=== PATIENT | female | born 1975 | race Caucasian/White ===

== ENCOUNTER 2019-02-27 17:37 | Emergency (ER) | payer SELFPAY ==
[2019-02-27 17:41] VITALS: BP 148/115; PULSE 133; RESP 18; TEMP 37.6; O2SAT 98; BMI 41.1
--- NOTE | 2019-02-27 18:11 | XR_ITS ---
WS: [id number] CHEST XRAY TECHNIQUE: Portable chest. CLINICAL INFORMATION: cough, fever COMPARISON: June 26, 2018 FINDINGS: Heart: Normal cardiac silhouette. Lungs: Lungs are clear. No consolidation or pleural effusion. Bones: Normal visualized bony structures. XR/XR chest 1V portable [id number] IMPRESSION: Normal chest
--- NOTE | 2019-02-27 18:12 | W.ED.FEVER ---
HPI - Fever General: Chief Complaint: Fever Stated Complaint: Fever Time Seen by Provider: 02/27/19 18:05 History of Present Illness: HPI Narrative: Patient comes in with a history of 4-day fever. Patient also reports some nausea, diarrhea, cough and sore throat. Patient appears mildly unwell. Patient appears in no acute distress. Patient has history of hypertension. Associated symptoms: Reports diarrhea and nausea Review of Systems General: Reports: 10 or more systems reviewed and unremarkable except in HPI and below Const: Reports: fever ENMT: Reports: throat pain Resp: Reports: non-productive cough GI: Reports: nausea and diarrhea PFSH ED PFSH: Statuses (acute, chronic, etc) shown below reflect problem list status as previously entered and may not be historically accurate Social History Smoking and tobacco status: current every day smoker Physical Exam Const: COMMON NORMALS: no apparent distress and oriented x3 GENERAL APPEARANCE: cooperative HENMT: COMMON NORMALS: normocephalic, external ears normal, EAC's normal, TM's normal bilaterally and external nose normal HEAD & SCALP: normal to inspection and normocephalic FACE & SINUS: normal facial exam NOSE: external nose normal GENERAL EAR: hearing not grossly impaired EXTERNAL EAR: Yes external ears normal EXTERNAL AUDITORY CANAL: EAC's normal TYMPANIC MEMBRANE: TM's normal bilaterally MOUTH: oral and palatal mucosa normal THROAT: posterior oropharynx normal Eye: COMMON NORMALS: PERRL and EOMs intact bilaterally PUPIL: Yes PERRL Neck/C-Spine: COMMON NORMALS: full ROM and no lymphadenopathy Lymph: LYMPHATIC: no lymphedema noted Chest: COMMONS NORMALS: inspection of chest normal and palpation of chest normal Resp: COMMON NORMALS: normal respiratory effort and clear to auscultation bilaterally AUSCULTATION: clear to auscultation bilaterally Cardio: COMMON NORMALS: regular rate and regular rhythm RATE: regular rate RHYTHM: regular rhythm GI: COMMON NORMALS: normal to inspection, nondistended, normoactive bowel sounds and non-tender : COMMON NORMALS: Yes no CVA tenderness BLADDER/KIDNEY EXAM: Yes no CVA tenderness Back/Pelvis: COMMON NORMALS: no CVA tenderness and thoracic and lumbar spine normal to inspection Extremity: COMMON NORMALS: normal to inspection GENERAL: No edema Neuro: COMMON NORMALS: oriented x3, moves all extremities and no focal motor deficits Psych: COMMON NORMALS: mental status grossly normal and cooperative Skin: COMMON NORMALS: no rashes or lesions noted GENERAL SKIN EXAM: no rashes or lesions noted Course Vital Signs: Vital signs: Vital Signs Temperature 100.2 F H 02/27/19 20:38 Pulse Rate 120 H 02/27/19 20:38 Respiratory Rate 18 02/27/19 20:38 Blood Pressure 131/109 02/27/19 20:38 Pulse Oximetry 95 02/27/19 20:38 MDM - Fever MDM Narrative: Medical decision making narrative: Patient comes in due to concerns for fever after 4 days of illness. Exam noted respirations were even lungs were clear to auscultation. Skin was warm and dry. Patient responded well to questioning. Vital signs were stable except for a mild fever, and increased heart rate. Differential diagnosis includes influenza, viral syndrome, dehydration, urinary tract infection, pneumonia. Laboratory values were significant for low potassium, mild increase in creatinine and mildly low sodium at 135. Patient was ordered medication for nausea Zofran, and given 1 L of IV fluids. While waiting for labs Davion Solomon, nurse practitioner, continue treatment. Patient was released with a diagnosis of hypokalemia and viral syndrome and was given potassium for further treatment. Lab Data: Labs: Lab Results 02/27/19 02/27/19 02/27/19 Range/Units 18:50 18:50 19:16 WBC 7.2 (4.0-10.0) 10^3/ uL RBC 5.17 (4.1-5.3) 10^6/u L Hgb 16.1 H (11.5-15.3) g/dL Hct 46.7 (37.0-47.0) % MCV 90.3 (81-99) fL MCH 31.1 (28.0-34.0) pg MCHC 34.5 (30.0-36.0) g/dL RDW 12.4 (12.1-15.1) % Plt Count 283 (130-400) 10^3/c mm MPV 10.2 (7.4-10.4) fL Neut % (Auto) 76.8 % Lymph % (Auto) 15.6 % Kent % (Auto) 7.2 % Eos % (Auto) 0.0 % Baso % (Auto) 0.3 % Neut # (Auto) 5.5 (1.8-7.7) 10^3/u L Lymph # (Auto) 1.1 (0.8-4.8) 10^3/u L Kent # (Auto) 0.5 (0.2-0.9) 10^3/u L Eos # (Auto) 0.0 (0.0-0.8) 10^3/u L Baso # (Auto) 0.0 (0.0-0.1) 10^3/u L Nucleated RBC % (a uto) 0 % Nucleated RBCs # 0.0 /100WBC Sodium (136-145) mmol/L Potassium (3.5-5.1) mmol/L Chloride (98-107) mmol/L Carbon Dioxide (22-29) mmol/L Anion Gap (5-19) BUN (6-20) mg/dL Creatinine (0.5-0.9) mg/dL GFR Calculation (90-130) mL/min Glucose (74-109) mg/dL Calcium (8.5-10.5) mg/dL Total Bilirubin (0.15-1.2) mg/dL AST (0-32) U/L ALT (0-33) U/L Alkaline Phosphata se (35-105) IU/L Total Protein (6.6-8.7) g/dL Albumin (3.5-5.2) g/dL Globulin (1.3-4.6) g/dL Influenza Type A A g Negative (Negative) POC Influenza B Ag Negative (Negative) Group A Strep Rapi d Negative (Negative) 02/27/19 Range/Units 19:16 WBC (4.0-10.0) 10^3/ uL RBC (4.1-5.3) 10^6/u L Hgb (11.5-15.3) g/dL Hct (37.0-47.0) % MCV (81-99) fL MCH (28.0-34.0) pg MCHC (30.0-36.0) g/dL RDW (12.1-15.1) % Plt Count (130-400) 10^3/c mm MPV (7.4-10.4) fL Neut % (Auto) % Lymph % (Auto) % Kent % (Auto) % Eos % (Auto) % Baso % (Auto) % Neut # (Auto) (1.8-7.7) 10^3/u L Lymph # (Auto) (0.8-4.8) 10^3/u L Kent # (Auto) (0.2-0.9) 10^3/u L Eos # (Auto) (0.0-0.8) 10^3/u L Baso # (Auto) (0.0-0.1) 10^3/u L Nucleated RBC % (a uto) % Nucleated RBCs # /100WBC Sodium 135 L (136-145) mmol/L Potassium 2.7 L* (3.5-5.1) mmol/L Chloride 94 L (98-107) mmol/L Carbon Dioxide 26 (22-29) mmol/L Anion Gap 17.7 (5-19) BUN 11 (6-20) mg/dL Creatinine 1.0 H (0.5-0.9) mg/dL GFR Calculation 60.8 L (90-130) mL/min Glucose 129 H (74-109) mg/dL Calcium 9.4 (8.5-10.5) mg/dL Total Bilirubin 0.2 (0.15-1.2) mg/dL AST 56 H (0-32) U/L ALT 57 H (0-33) U/L Alkaline Phosphata se 94 (35-105) IU/L Total Protein 7.9 (6.6-8.7) g/dL Albumin 4.8 (3.5-5.2) g/dL Globulin 3.1 (1.3-4.6) g/dL Influenza Type A A g (Negative) POC Influenza B Ag (Negative) Group A Strep Rapi d (Negative) Discharge Plan Discharge Patient Disposition: Home, Self-Care Clinical Impression: Viral infection, Hypokalemia Condition: Stable Prescriptions: New potassium chloride 10 mEq tablet extended release 10 meq PO DAILY Qty: 10 RF: 0 Discharge Orders: Discharge Order (Routine); Ordered 02/27/19 Ordered By: Jonathan Solomon Other Ambulatory Orders: Potassium (Routine) Timeframe: 10 Day Facility: [facility] - Location: Lab - Main Lab Ordered By: Jonathan Solomon Discharge Diet: Usual diet Discharge Activity: Increase activity as tolerated Patient Instructions: Hypokalemia (ED), Viral Syndrome (ED) Activity Restrictions/Additional Instructions: Follow-up with medical provider as directed. Medication as prescribed. return to the ER or your medical provider if condition worsens. Please read and understand discharge instructions. If any questions ask please. Drink plenty of fluids. Follow-up with family medicine provider to recheck potassium. Discharge Date/Time: 02/27/19 20:39 Coding Level of Care Code ED Retail Operations Manager for Jeremy Cherry Exam Problem Focused
[2019-02-27 19:16] LABS: Rapid Strep A Test Negative (Negative)
[2019-02-27 19:21] LABS: Basophils % 0.3 %; Hematocrit 46.7 % (37.0-47.0); Hemoglobin 16.1 g/dL (11.5-15.3); Lymphocytes # 1.1 10^3/uL (0.8-4.8); Lymphocytes % 15.6 %; Mean Corpuscular HGB Conc 34.5 g/dL (30.0-36.0); Mean Corpuscular Hemoglobin 31.1 pg (28.0-34.0); Mean Corpuscular Volume 90.3 fL (81-99); Mean Platelet Volume 10.2 fL (7.4-10.4); Monocytes # 0.5 10^3/uL (0.2-0.9); Monocytes % 7.2 %; Neutrophils # 5.5 10^3/uL (1.8-7.7); Neutrophils % 76.8 %; Nucleated Red Blood Cells % 0 %; Platelet Count 283 10^3/cmm (130-400); Red Blood Count 5.17 10^6/uL (4.1-5.3); Red Cell Distribution Width 12.4 % (12.1-15.1); White Blood Count 7.2 10^3/uL (4.0-10.0)
[2019-02-27 19:25] LABS: Influenza A by IFA Negative (Negative); Influenza B by IFA Negative (Negative)
[2019-02-27] MEDS: sodium chloride 0.9% 1,000 ML 999 ML IV (19:25)
[2019-02-27] MEDS: ondansetron 2 mg/ML SDV 2 mL 4 MG IVP (19:25)
[2019-02-27 19:42] LABS: Alanine Aminotransferase 57 U/L (0-33); Albumin Level 4.8 g/dL (3.5-5.2); Alkaline Phosphatase 94 IU/L (35-105); Anion Gap 17.7 (5-19); Aspartate Amino Transferase 56 U/L (0-32); Blood Urea Nitrogen 11 mg/dL (6-20); Calcium 9.4 mg/dL (8.5-10.5); Carbon Dioxide 26 mmol/L (22-29); Chloride 94 mmol/L (98-107); Globulin 3.1 g/dL (1.3-4.6); Glomerular Filtration Rate 60.8 mL/min (90-130); Glucose 129 mg/dL (74-109); Sodium 135 mmol/L (136-145); Total Bilirubin 0.2 mg/dL (0.15-1.2); Total Protein 7.9 g/dL (6.6-8.7)
[2019-02-27] MEDS: ketorolac 30 mg/mL INJ IVP (19:43)
[2019-02-27 19:55] LABS: Potassium 2.7 mmol/L (3.5-5.1)
--- NOTE | 2019-02-27 19:55 | PC.NURSE ---
Advised McVickers of potassium of 2.7
[2019-02-27 20:38] VITALS: BP 131/109; PULSE 120; RESP 18; TEMP 37.9; O2SAT 95
== END 2019-02-27 20:39 | disposition home or self-care (01) ==
PROVIDERS: Emergency Provider Nurse Practitioner Family
DX: B34.9 Viral infection, unspecified (principal); E87.6 Hypokalemia; F17.210 Nicotine dependence, cigarettes, uncomplicated
CPT/HCPCS: 71045; 80053; 85025; 87081; 87804; 87880; 96360; 96374; 99282; J1885; J2405; J7030

== ENCOUNTER 2019-03-01 08:29 | Emergency (ER) | payer SELFPAY ==
[2019-03-01] VITALS (7 sets, daily range): BP systolic 130–149; BP diastolic 80–97; PULSE 118–138; RESP 19–24; TEMP 39.4; O2SAT 94–95; BMI 41.1
--- NOTE | 2019-03-01 08:38 | ED_ITS ---
Entered by Wilfred Gilman, acting as scribe for Chad Lujan DO HPI - Fever General: Chief Complaint: Fever Stated Complaint: fever Time Seen by Provider: 03/01/19 08:41 History of Present Illness: HPI Narrative: 43 yo female presents with fever. Pt states that she has had this fever for 1 week, she was seen here 2 days ago for it. Pt states that she hasn't been able to get the fever to go away. Pt states that her fever has gotten up to 104. Pt states that she has had diarrhea several times. MD elicited complaint: fever and malaise Onset (ago): week(s) (1) Measured temperature: 104 F Associated symptoms: Reports chills and diarrhea; Deny abdominal pain, back/flank pain, chest pain, confusion, dysuria, extremity pain, headache(s), nasal congestion, nausea, night sweats or vomiting Review of Systems Const: Reports: fever, chills, body aches and malaise; Denies: fatigue or night sweats Eyes: Denies: change in vision or blurry vision ENMT: Denies: throat pain, oral sores/lesions, dental pain, nasal discharge or nasal congestion Card: Denies: chest pain, palpitations, irregular heart rhythm, edema, syncope, shortness of breath on exertion, shortness of breath when lying down or leg pain with exertion Resp: Reports: non-productive cough; Denies: shortness of breath, productive cough or wheezing GI: Reports: diarrhea; Denies: abdominal pain, nausea, vomiting, vomiting blood, coffee grounds in vomit, difficulty swallowing, heartburn/indigestion, constipation, cramping, blood in stool or black tarry stool : Denies: flank pain, painful urination, urinary frequency, urinary urgency, urinary incontinence or blood in urine Musc: Denies: neck pain, back pain, extremity pain, extremity swelling, joint pain or joint swelling Skin/Breast: Denies: rash, itching or redness Neuro: Denies: headache, numbness in extremities, weakness in extremities, changes in sensation, lack of coordination, difficulty walking, frequent falls, dizziness, vertigo or confusion Psych: Denies: anxiety, depression, loss of interest, visual hallucinations, auditory hallucinations, suicidal ideation or homicidal ideation Endo: Denies: excessive urination, excessive thirst, tired all the time or cold intolerance Luis Miguel/Lymph: Denies: easy bruising, easy bleeding, petechiae, enlarged lymph nodes or tender lymph nodes PFSH ED PFSH: Statuses (acute, chronic, etc) shown below reflect problem list status as previously entered and may not be historically accurate Medical History FHx: cholecystectomy (Acute) Surgical History H/O tubal ligation (Acute) History of appendectomy (Acute) Social History Smoking and tobacco status: current every day smoker Physical Exam Const: COMMON NORMALS: average body habitus, oriented x3 and alert GENERAL APPEARANCE: cooperative, comfortable, well kempt and well developed NUTRITIONAL APPEARANCE: obese ORIENTATION/CONSCIOUSNESS: Yes awake, Yes oriented to person and Yes oriented to place HENMT: COMMON NORMALS: normocephalic, head/scalp atraumatic, EAC's normal, TM's normal bilaterally, external nose normal, moist oral mucous membranes and oropharynx normal HEAD & SCALP: normocephalic and atraumatic NOSE: external nose normal EXTERNAL AUDITORY CANAL: EAC's normal TYMPANIC MEMBRANE: TM's normal bilaterally MOUTH: oral and palatal mucosa normal, lip normal and tongue normal THROAT: posterior oropharynx normal and tonsils normal Eye: COMMON NORMALS: PERRL, EOMs intact bilaterally, conjunctivae normal and no scleral icterus CONJUNCTIVA: Yes conjunctivae normal PUPIL: Yes PERRL Neck/C-Spine: COMMON NORMALS: full ROM, no lymphadenopathy, supple, no meningeal signs and thyroid normal THYROID: thyroid normal and asymmetrical Lymph: LYMPHATIC: no lymphadenopathy noted Resp: COMMON NORMALS: normal respiratory effort, no retractions and no use of accessory muscles AUSCULTATION: rhonchi lower bilaterally and wheezes throughout Cardio: COMMON NORMALS: regular rate and regular rhythm RATE: regular rate RHYTHM: regular rhythm HEART SOUNDS: no murmurs GI: COMMON NORMALS: normal to inspection, nondistended, normoactive bowel sounds, soft to palpation and no hepatosplenomegaly PALPATION: Yes soft and Yes no hepatosplenomegaly : COMMON NORMALS: Yes no CVA tenderness BLADDER/KIDNEY EXAM: Yes no CVA tenderness Back/Pelvis: COMMON NORMALS: no CVA tenderness LUMBAR SPINE/LOWER BACK: Yes normal to inspection Extremity: COMMON NORMALS: no clubbing, cyanosis or edema, no calf tenderness and no pedal edema Neuro: COMMON NORMALS: oriented x3 SENSORIUM/ORIENTATION: Yes alert, Yes oriented to person and Yes oriented to place MENINGEAL SIGNS: Yes no meningeal signs Psych: APPEARANCE: Yes well kempt Skin: COMMON NORMALS: no rashes or lesions noted and skin turgor normal GENERAL SKIN EXAM: no rashes or lesions noted and turgor normal Course ED course: Patient improved significantly with nebulizers. She is feeling some better is a little surprised her flu is negative her chest x-ray is unremarkable started on doxycycline gave her prednisone IV here and will discharge home with a prednisone taper continue to use albuterol aggressively scheduled 4 times a day and as needed return if has worsening problems follow-up early next week. Vital Signs: Vital signs: Vital Signs Temperature 103 F H 03/01/19 08:33 Pulse Rate 125 H 03/01/19 10:40 Respiratory Rate 19 H 03/01/19 10:40 Blood Pressure 130/80 03/01/19 10:40 Pulse Oximetry 95 03/01/19 10:40 MDM - Fever Lab Data: Labs: Lab Results 03/01/19 03/01/19 03/01/19 Range/Units 08:51 08:51 09:00 WBC 8.7 (4.0-10.0) 10^3/ uL RBC 5.21 (4.1-5.3) 10^6/u L Hgb 16.2 H (11.5-15.3) g/dL Hct 46.9 (37.0-47.0) % MCV 90.0 (81-99) fL MCH 31.1 (28.0-34.0) pg MCHC 34.5 (30.0-36.0) g/dL RDW 12.4 (12.1-15.1) % Plt Count 223 (130-400) 10^3/c mm MPV 10.6 H (7.4-10.4) fL Neut % (Auto) 80.1 % Lymph % (Auto) 13.7 % Graham % (Auto) 5.4 % Eos % (Auto) 0.0 % Baso % (Auto) 0.5 % Neut # (Auto) 7.0 (1.8-7.7) 10^3/u L Lymph # (Auto) 1.2 (0.8-4.8) 10^3/u L Graham # (Auto) 0.5 (0.2-0.9) 10^3/u L Eos # (Auto) 0.0 (0.0-0.8) 10^3/u L Baso # (Auto) 0.0 (0.0-0.1) 10^3/u L Nucleated RBC % (a uto) 0 % Nucleated RBCs # 0.0 /100WBC Sodium 135 L (136-145) mmol/L Potassium 3.0 L (3.5-5.1) mmol/L Chloride 95 L (98-107) mmol/L Carbon Dioxide 26 (22-29) mmol/L Anion Gap 17.0 (5-19) BUN 9 (6-20) mg/dL Creatinine 0.9 (0.5-0.9) mg/dL GFR Calculation 68.7 L (90-130) mL/min Glucose 140 H (74-109) mg/dL Calcium 9.5 (8.5-10.5) mg/dL Total Bilirubin 0.2 (0.15-1.2) mg/dL AST 50 H (0-32) U/L ALT 45 H (0-33) U/L Alkaline Phosphata se 94 (35-105) IU/L Total Protein 8.4 (6.6-8.7) g/dL Albumin 4.5 (3.5-5.2) g/dL Globulin 3.9 (1.3-4.6) g/dL Influenza Type A A g Negative (Negative) POC Influenza B Ag Negative (Negative) Discharge Plan Discharge Patient Disposition: Home, Self-Care Clinical Impression: Bronchitis Condition: Stable Prescriptions: New Medrol (Gonzalo) 4 mg tablets,dose pack See Rx Instructions .ROUTE .COMPLEX Qty: 21 RF: 0 doxycycline hyclate 100 mg capsule 100 mg PO BID 10 Days Qty: 20 RF: 0 albuterol sulfate 2.5 mg /3 mL (0.083 %) solution for nebulization 2.5 mg INHALATION Q4H PRN (Reason: shortness of breath or wheezing) Qty: 90 RF: 0 No Action potassium chloride 10 mEq tablet extended release 10 meq PO DAILY Qty: 10 RF: 0 Discharge Diet: Advance as tolerated Discharge Activity: Increase activity as tolerated Activity Restrictions/Additional Instructions: Follow-up with your primary care doctor in 2 to 3 days. Discharge Date/Time: 03/01/19 10:41 Coding Level of Care Code ED Child Welfare Worker for Chg Fwd Exam Problem Focused The documentation recorded by the Mukul hussein Kialy, accurately reflects the service I personally performed and the decisions made by [place] Curtis L, Mar 01, 2019 08:29
--- NOTE | 2019-03-01 08:41 | XRR_ITS ---
PROCEDURE INFORMATION: Exam: XR Chest, 1 View Exam date and time: 03/01/2019 8:44 AM Age: 43 years old Clinical indication: Patient HX: Cough/fever x1 wk, PT is a current smoker, PT denies surg HX, PT denies HX of CA. TECHNIQUE: Imaging protocol: XR of the chest Views: 1 view. COMPARISON: CR XR chest 1V portable [id number] 02/27/2019 6:21 PM FINDINGS: Lungs: Mild interstitial prominence, without acute airspace disease. Pleural space: No pleural effusion. Heart/Mediastinum: Normal configuration of the heart. Bones/joints: Mild degenerative change. XR/XR chest 1V portable [id number] IMPRESSION: Mild interstitial prominence, without acute airspace disease.
[2019-03-01] MEDS: sodium chloride 0.9% 1,000 ML 999 ML IV (08:55)
[2019-03-01 08:56] LABS: Basophils % 0.5 %; Hematocrit 46.9 % (37.0-47.0); Hemoglobin 16.2 g/dL (11.5-15.3); Lymphocytes # 1.2 10^3/uL (0.8-4.8); Lymphocytes % 13.7 %; Mean Corpuscular HGB Conc 34.5 g/dL (30.0-36.0); Mean Corpuscular Hemoglobin 31.1 pg (28.0-34.0); Mean Platelet Volume 10.6 fL (7.4-10.4); Monocytes # 0.5 10^3/uL (0.2-0.9); Monocytes % 5.4 %; Neutrophils % 80.1 %; Nucleated Red Blood Cells % 0 %; Platelet Count 223 10^3/cmm (130-400); Red Blood Count 5.21 10^6/uL (4.1-5.3); Red Cell Distribution Width 12.4 % (12.1-15.1); White Blood Count 8.7 10^3/uL (4.0-10.0)
[2019-03-01 09:14] LABS: Alanine Aminotransferase 45 U/L (0-33); Albumin Level 4.5 g/dL (3.5-5.2); Alkaline Phosphatase 94 IU/L (35-105); Aspartate Amino Transferase 50 U/L (0-32); Blood Urea Nitrogen 9 mg/dL (6-20); Calcium 9.5 mg/dL (8.5-10.5); Carbon Dioxide 26 mmol/L (22-29); Chloride 95 mmol/L (98-107); Creatinine Clr Calc Pharmacy 98.1665; Globulin 3.9 g/dL (1.3-4.6); Glomerular Filtration Rate 68.7 mL/min (90-130); Glucose 140 mg/dL (74-109); Sodium 135 mmol/L (136-145); Total Bilirubin 0.2 mg/dL (0.15-1.2); Total Protein 8.4 g/dL (6.6-8.7)
[2019-03-01] MEDS: potassium chloride oral liq 20 mEq/15 mL UDC 40 MEQ PO (09:20)
[2019-03-01] MEDS: sodium chlor 0.9% + KCl 20 mEq 20 MEQ/1,000 ML BAG 125 MEQ IV (09:23)
[2019-03-01] MEDS: ipratropium-albuterol 3 mL Neb INHALATION ×2 (09:31→09:46)
[2019-03-01 09:40] LABS: Influenza A by IFA Negative (Negative); Influenza B by IFA Negative (Negative)
== END 2019-03-01 10:41 | disposition home or self-care (01) ==
PROVIDERS: Emergency Provider Family Medicine
DX: J40 Bronchitis, not specified as acute or chronic (principal); F17.210 Nicotine dependence, cigarettes, uncomplicated
CPT/HCPCS: 71045; 80053; 85025; 87804; 94640; 96360; 96374; 99282; J2930; J7030

== ENCOUNTER 2019-06-14 08:49 | Emergency (ER) | payer SELFPAY ==
[2019-06-14] VITALS (7 sets, daily range): BP systolic 132–155; BP diastolic 84–108; PULSE 78–94; RESP 16–20; TEMP 36.6; O2SAT 95–100; BMI 41.1
--- NOTE | 2019-06-14 09:08 | W.ED.SOB ---
HPI - SOB/Dyspnea General: Chief Complaint: Shortness of Breath/Dyspnea Stated Complaint: SOB Time Seen by Provider: 06/14/19 09:08 History of Present Illness: HPI Narrative: Patient is a 43-year-old female who comes ED with shortness of breath and chest pain. Patient says she had shortness of breath and wheezing that started 2 days ago. Today patient is having shortness of breath and chest pain that is worse upon exertion. Chest pain started yesterday. She describes the chest pain as sharp and occurs whether she is active or not. She does say when she is up and active the chest pain gets worse. She does not have any chest pain currently in the ED. She says over the past couple weeks she has noticed during exertion she will start sweating profusely. She also had an episode of left jaw pain that started yesterday, but has since resolved. She describes having a nonproductive cough. She is a tobacco smoker and just quit smoking 2 days ago. Associated symptoms: Reports chest pain; Deny abdominal pain, fever(s), nausea, orthopnea, palpitations or vomiting Review of Systems Const: Denies: fever, chills or fatigue Eyes: Denies: change in vision or eye discomfort ENMT: Denies: throat pain, painful swallowing, nasal discharge or nasal congestion Card: Reports: chest pain and shortness of breath on exertion; Denies: palpitations, edema, swelling of feet/ankles or shortness of breath when lying down Resp: Reports: shortness of breath and non-productive cough; Denies: productive cough GI: Denies: abdominal pain, nausea, vomiting, diarrhea, constipation or blood in stool : Denies: flank pain, painful urination or blood in urine Musc: Denies: neck pain, back pain or extremity swelling Skin/Breast: Denies: rash or new lesion Neuro: Denies: headache, numbness in extremities or weakness in extremities PFS ED PFSH: Medical History FHx: cholecystectomy Surgical History H/O tubal ligation History of appendectomy Social History Smoking and tobacco status: former smoker Physical Exam Const: COMMON NORMALS: oriented x3 and alert GENERAL APPEARANCE: cooperative NUTRITIONAL APPEARANCE: overweight HENMT: COMMON NORMALS: normocephalic HEAD & SCALP: normocephalic MOUTH: oral and palatal mucosa normal THROAT: posterior oropharynx normal and uvula midline Eye: COMMON NORMALS: PERRL and conjunctivae normal CONJUNCTIVA: Yes conjunctivae normal PUPIL: Yes PERRL Neck/C-Spine: COMMON NORMALS: supple GENERAL: Yes normal visual inspection Resp: COMMON NORMALS: normal respiratory effort, no retractions and no use of accessory muscles EFFORT & INSPECTION: Yes able to speak in complete sentences and Yes tachypneic (20 breaths per minute) AUSCULTATION: wheezes (Expiratory wheezing throughout right and left lung.) expiratory wheezes and throughout Cardio: COMMON NORMALS: regular rate, regular rhythm, S1 normal heart sound, S2 normal heart sound, no gallops, no clicks, no murmurs and peripheral pulses 2+ throughout RATE: regular rate RHYTHM: regular rhythm HEART SOUNDS: S1 normal and S2 normal PERIPHERAL PULSES: pulses 2+ throughout GI: COMMON NORMALS: normal to inspection, nondistended, normoactive bowel sounds, soft to palpation, non-tender and no masses PALPATION: Yes soft : COMMON NORMALS: Yes no CVA tenderness BLADDER/KIDNEY EXAM: Yes no CVA tenderness Back/Pelvis: COMMON NORMALS: no CVA tenderness Extremity: COMMON NORMALS: normal to inspection and no pedal edema Neuro: COMMON NORMALS: oriented x3 and moves all extremities SENSORIUM/ORIENTATION: Yes alert Skin: COMMON NORMALS: no rashes or lesions noted GENERAL SKIN EXAM: no rashes or lesions noted and dry skin Course ED course: HEART Score- 3-- Low Score Risk of MACE 0.9-1.7% Reevaluation(s): Reevaluation #1: Patient received 2 DuoNeb breathing treatments while here in the ED. After breathing treatments patient's wheezing greatly improved upon auscultation. Patient states she feels a lot better and does not feel short of breath currently. Time: 11:30 Vital Signs: Vital signs: Vital Signs Temperature 97.9 F 06/14/19 08:56 Pulse Rate 85 06/14/19 12:23 Respiratory Rate 16 06/14/19 12:23 Blood Pressure 132/84 06/14/19 12:23 Pulse Oximetry 95 06/14/19 12:23 MDM - SOB/Dyspnea MDM Narrative: Medical decision making narrative: Patient is a 43-year-old female who comes to the ED with shortness of breath and chest pain. Physical exam was remarkable for extensive wheezing throughout both right and left lungs. CBC, CMP and urinalysis were all normal and unremarkable. EKG showed normal sinus rhythm and troponin was negative. Influenza negative. Chest x-ray showed no acute findings. Patient was given DuoNeb treatment and reevaluated. Patient felt a lot better after DuoNeb treatments and her lungs sounded clear to auscultation bilaterally with no wheezing. Patient was diagnosed with reactive airway disease with wheezing. Patient has albuterol nebulizer at home. I put in an order for case management to find patient a PCP. Patient will follow-up with PCP next 7 to 10 days. I told her to use her albuterol nebulizer as needed for any wheezing or shortness of breath. Patient understood and agreed with plan. Lab Data: Attestation: I reviewed the patient's lab results. Labs: Lab Results 06/14/19 06/14/19 06/14/19 Range/Units 09:33 10:19 10:44 WBC 9.2 (4.0-10.0) 10^3/ uL RBC 4.43 (4.1-5.3) 10^6/u L Hgb 13.9 (11.5-15.3) g/dL Hct 45.3 (37.0-47.0) % MCV 102.3 H (81-99) fL MCH 31.4 (28.0-34.0) pg MCHC 30.7 (30.0-36.0) g/dL RDW 12.5 (12.1-15.1) % Plt Count 286 (130-400) 10^3/c mm MPV 10.5 H (7.4-10.4) fL Neut % (Auto) 67.3 % Lymph % (Auto) 22.2 % Cameron % (Auto) 5.2 % Eos % (Auto) 4.4 % Baso % (Auto) 0.7 % Neut # (Auto) 6.2 (1.8-7.7) 10^3/u L Lymph # (Auto) 2.0 (0.8-4.8) 10^3/u L Cameron # (Auto) 0.5 (0.2-0.9) 10^3/u L Eos # (Auto) 0.4 (0.0-0.8) 10^3/u L Baso # (Auto) 0.1 (0.0-0.1) 10^3/u L Nucleated RBC % (a uto) 0 % Nucleated RBCs # 0.0 /100WBC Sodium (136-145) mmol/L Potassium (3.5-5.1) mmol/L Chloride (98-107) mmol/L Carbon Dioxide (22-29) mmol/L Anion Gap (5-19) BUN (6-20) mg/dL Creatinine (0.5-0.9) mg/dL GFR Calculation (90-130) mL/min Glucose (65-115) mg/dL Calculated Osmolal ity (285-295) mOsm/k g Calcium (8.5-10.5) mg/dL Magnesium (1.7-2.3) mg/dL Total Bilirubin (0.15-1.2) mg/dL AST (0-32) U/L ALT (0-33) U/L Alkaline Phosphata se (35-105) IU/L Troponin T Baselin e (0-10) ng/mL Total Protein (6.6-8.7) g/dL Albumin (3.5-5.2) g/dL Globulin (1.3-4.6) g/dL TSH (0.27-4.20) uIU/ mL HCG, Qual (Negative) Urine Color Yellow (Yellow) Urine Appearance Sl cloudy A (CLEAR) Urine pH 9 H (5-7) Ur Specific Gravit y 1.015 (1.005-1.030) Urine Protein Neg (Negative) Urine Glucose (UA) Norm (Normal) Urine Ketones Negative (Negative) Urine Blood Neg (Negative) Urine Nitrate Negative (Negative) Urine Bilirubin Neg (NEGATIVE) Prot Sulfosalicyli c Acd Negative (Negative) Urine Urobilinogen Norm (Negative) mg/dL Ur Leukocyte Renetta ase Negative (Negative) Urine RBC None (0-2) /hpf Urine WBC 0-4 H (0-5) /hpf Ur Squamous Epith Cells 40-55 H (0-5) Urine Bacteria 2+ H (NONE) Urine Mucus 1+ Influenza Type A A g Negative (Negative) Influenza Type B A g Negative (Negative) 06/14/19 06/14/19 06/14/19 Range/Units 10:44 10:44 10:44 WBC (4.0-10.0) 10^3/ uL RBC (4.1-5.3) 10^6/u L Hgb (11.5-15.3) g/dL Hct (37.0-47.0) % MCV (81-99) fL MCH (28.0-34.0) pg MCHC (30.0-36.0) g/dL RDW (12.1-15.1) % Plt Count (130-400) 10^3/c mm MPV (7.4-10.4) fL Neut % (Auto) % Lymph % (Auto) % Cameron % (Auto) % Eos % (Auto) % Baso % (Auto) % Neut # (Auto) (1.8-7.7) 10^3/u L Lymph # (Auto) (0.8-4.8) 10^3/u L Cameron # (Auto) (0.2-0.9) 10^3/u L Eos # (Auto) (0.0-0.8) 10^3/u L Baso # (Auto) (0.0-0.1) 10^3/u L Nucleated RBC % (a uto) % Nucleated RBCs # /100WBC Sodium 139 (136-145) mmol/L Potassium 3.6 (3.5-5.1) mmol/L Chloride 102 (98-107) mmol/L Carbon Dioxide 26 (22-29) mmol/L Anion Gap 14.6 (5-19) BUN 8 (6-20) mg/dL Creatinine 0.6 (0.5-0.9) mg/dL GFR Calculation 109.6 (90-130) mL/min Glucose 120 H (65-115) mg/dL Calculated Osmolal ity 285 (285-295) mOsm/k g Calcium 9.0 (8.5-10.5) mg/dL Magnesium 2.0 (1.7-2.3) mg/dL Total Bilirubin 0.2 (0.15-1.2) mg/dL AST 31 (0-32) U/L ALT 43 H (0-33) U/L Alkaline Phosphata se 83 (35-105) IU/L Troponin T Baselin e 6 (0-10) ng/mL Total Protein 6.7 (6.6-8.7) g/dL Albumin 4.2 (3.5-5.2) g/dL Globulin 2.5 (1.3-4.6) g/dL TSH 0.72 (0.27-4.20) uIU/ mL HCG, Qual Negative (Negative) Urine Color (Yellow) Urine Appearance (CLEAR) Urine pH (5-7) Ur Specific Gravit y (1.005-1.030) Urine Protein (Negative) Urine Glucose (UA) (Normal) Urine Ketones (Negative) Urine Blood (Negative) Urine Nitrate (Negative) Urine Bilirubin (NEGATIVE) Prot Sulfosalicyli c Acd (Negative) Urine Urobilinogen (Negative) mg/dL Ur Leukocyte Renetta ase (Negative) Urine RBC (0-2) /hpf Urine WBC (0-5) /hpf Ur Squamous Epith Cells (0-5) Urine Bacteria (NONE) Urine Mucus Influenza Type A A g (Negative) Influenza Type B A g (Negative) Imaging Data^: CXR: Attestation: I personally reviewed and interpreted this imaging study as follows: Radiologist's impression: [place] [address] XRay Report Signed Patient: Anita Farmer Unit #: [id number] : 1975 Age/Sex: 43 / F ADM Date: 06/14/19 Loc: ER Room/Bed: Attending Dr: Ordering Provider/Ordering MD: Pasquale Wells Date of Service: 06/14/19 Procedure(s): XR chest 1V portable [id number] Accession Number(s): [id number] Report Number: [id number] WS: [id number] XR chest 1V portable [id number] REASON FOR EXAM: cp and sob FINDINGS: The heart and mediastinal interfaces were normal. The lung elizabeth are well aerated. No pneumonia, pleural effusion, pulmonary edema, no mass effect. No interval change since previous exam of March 01, 2019. The hilum and apices are normal. No osseous abnormalities. XR/XR chest 1V portable [id number] IMPRESSION: Negative chest for active pathology. Dictated By: Matt Yusuf DO Signed By: Matt Yusuf DO Signed Date/Time: 06/14/19936 DD/ 5 EKG Data^: EKG 1: Attestation: I personally reviewed and interpreted this EKG as follows: EKG Interpretation Date: 06/14/19 Interpretation: Sinus rhythm, approximately 90 bpm, P waves present, no ST segment elevation or depression seen. EKG 2: Attestation: I personally reviewed and interpreted this EKG as follows: EKG Interpretation Date: 06/14/19 Interpretation: Sinus rhythm, 71 bpm, P waves present, no ST segment elevation or depression seen. Discharge Plan Discharge Patient Disposition: Home, Self-Care Clinical Impression: Diffuse wheezing Reactive airway disease with wheezing Qualifiers: Asthma severity: mild Asthma persistence: intermittent Asthma complication type: uncomplicated Qualified Code(s): J45.20 - Mild intermittent asthma, uncomplicated Condition: Stable Prescriptions: No Action aspirin 325 mg Tablet 325 mg PO PRN PRN (Reason: Pain) RF: 0 albuterol sulfate 2.5 mg /3 mL (0.083 %) solution for nebulization 2.5 mg INHALATION Q4H PRN (Reason: shortness of breath or wheezing) Qty: 90 RF: 0 Discharge Orders: Discharge Order (Routine); Ordered 06/14/19 Ordered By: Pasquale Wells Discharge Diet: Regular Discharge Activity: Increase activity as tolerated Patient Instructions: Reactive Airways Disease (ED) Activity Restrictions/Additional Instructions: PCP or case management should be contacting you about setting up an appointment with your primary care physician sometime next week. Use your previously prescribed albuterol nebulizer as needed for any wheezing or shortness of breath. You can return to the ED if you have any chest pain or worsening symptoms. Cigarette smoking cessation will help with symptoms and reduce cardiac risk. Discharge Date/Time: 06/14/19 12:25 Coding Level of Care Code ED Supervisor [employer] Department for Chg Fwd Exam Comprehensive
--- NOTE | 2019-06-14 09:09 | XR_ITS ---
WS: [id number] XR chest 1V portable [id number] REASON FOR EXAM: cp and sob FINDINGS: The heart and mediastinal interfaces were normal. The lung elizabeth are well aerated. No pneumonia, pleural effusion, pulmonary edema, no mass effect. No interval change since previous exam of March 01, 2019. The hilum and apices are normal. No osseous abnormalities. XR/XR chest 1V portable [id number] IMPRESSION: Negative chest for active pathology.
--- NOTE | 2019-06-14 09:10 | ECG_ITS ---
Measurements Intervals [place] Rate: 81 P: 40 VA: 167 QRS: 22 QRSD: 81 T: 57 QT: 355 QTc: 412 SINUS RHYTHM Compared to ECG 12/07/2017 19:32:03 No significant changes Electronically Signed On 06-14-2019 11:39:07 CDT by Mary Jane Foster M.D. [id number]
[2019-06-14 10:00] LABS: Influenza A by IFA Negative (Negative); Influenza B by IFA Negative (Negative)
[2019-06-14] MEDS: ipratropium-albuterol 3 mL Neb INHALATION ×2 (10:07→11:21)
[2019-06-14] MEDS: aspirin 325 mg Tablet PO (10:17)
[2019-06-14 10:37] LABS: Bilirubin Urine Neg (NEGATIVE); Blood Urine Neg (Negative); Glucose Urine UA Norm (Normal); Ketones Urine Negative (Negative); Leukocyte Esterase Urine Negative (Negative); Nitrate Urine Negative (Negative); Protein Urine Neg (Negative); Specific Gravity, Urine 1.015 (1.005-1.030); Sulfosalicylic Acid Urine Negative (Negative); Urine Color Yellow (Yellow); Urobilinogen Urine Norm (Negative); pH Urine 9 (5-7)
[2019-06-14 10:41] LABS: Add Urine Culture? No; Bacteria Urine 2+; Mucus Urine 1+; Squamous Epithelial Cell Urine 40-55 (0-5); WBC Urine 0-4 /hpf (0-5)
[2019-06-14 10:52] LABS: Basophils # 0.1 10^3/uL (0.0-0.1); Basophils % 0.7 %; Eosinophils # 0.4 10^3/uL (0.0-0.8); Eosinophils % 4.4 %; Hematocrit 45.3 % (37.0-47.0); Hemoglobin 13.9 g/dL (11.5-15.3); Lymphocytes % 22.2 %; Mean Corpuscular HGB Conc 30.7 g/dL (30.0-36.0); Mean Corpuscular Hemoglobin 31.4 pg (28.0-34.0); Mean Corpuscular Volume 102.3 fL (81-99); Mean Platelet Volume 10.5 fL (7.4-10.4); Monocytes # 0.5 10^3/uL (0.2-0.9); Monocytes % 5.2 %; Neutrophils # 6.2 10^3/uL (1.8-7.7); Neutrophils % 67.3 %; Nucleated Red Blood Cells % 0 %; Platelet Count 286 10^3/cmm (130-400); Red Blood Count 4.43 10^6/uL (4.1-5.3); Red Cell Distribution Width 12.5 % (12.1-15.1); White Blood Count 9.2 10^3/uL (4.0-10.0)
[2019-06-14 11:02] LABS: HCG, Serum Qual Negative (Negative)
--- NOTE | 2019-06-14 11:10 | ECG_ITS ---
Measurements Intervals [place] Rate: 71 P: 24 IN: 166 QRS: 9 QRSD: 79 T: 47 QT: 362 QTc: 395 SINUS RHYTHM Compared to ECG 12/07/2017 19:32:03 No significant changes Electronically Signed On 06-14-2019 11:40:38 CDT by Mary Jane Foster M.D. [id number]
[2019-06-14 11:12] LABS: Troponin(5th) Baseline 6 ng/mL (0-10)
[2019-06-14 11:18] LABS: Alanine Aminotransferase 43 U/L (0-33); Albumin Level 4.2 g/dL (3.5-5.2); Alkaline Phosphatase 83 IU/L (35-105); Anion Gap 14.6 (5-19); Aspartate Amino Transferase 31 U/L (0-32); Blood Urea Nitrogen 8 mg/dL (6-20); Carbon Dioxide 26 mmol/L (22-29); Chloride 102 mmol/L (98-107); Globulin 2.5 g/dL (1.3-4.6); Glomerular Filtration Rate 109.6 mL/min (90-130); Glucose 120 mg/dL (65-115); Osmolality Calculated 285 mOsm/kg (285-295); Potassium 3.6 mmol/L (3.5-5.1); Sodium 139 mmol/L (136-145); Thyroid Stimulating Hormone 0.72 uIU/mL (0.27-4.20); Total Bilirubin 0.2 mg/dL (0.15-1.2); Total Protein 6.7 g/dL (6.6-8.7)
--- NOTE | 2019-06-14 11:28 | PC.NURSE ---
EKG done at 1112 and shown to ER doctor
--- NOTE | 2019-06-16 13:42 | DCPLANNER ---
manager of organizational development had message to speak with patient about getting established with a primary care physician. manager of organizational development called the phone number [phone], there was no answer at this number. manager of organizational development unable to speak with patient at this time, and unable to leave a voicemail for patient.
== END 2019-06-14 12:25 | disposition home or self-care (01) ==
PROVIDERS: Emergency Provider Physician Assistant
DX: J45.20 Mild intermittent asthma, uncomplicated (principal); Z79.82 Long term (current) use of aspirin; Z87.891 Personal history of nicotine dependence
CPT/HCPCS: 12345; 36415; 71045; 80053; 81001; 83735; 84443; 84484; 84703; 85025; 87804; 93005; 94640; 99283; 99284

== ENCOUNTER 2020-01-15 06:14 | Emergency (ER) | payer SELFPAY ==
[2020-01-15 06:21] VITALS: BP 142/92; PULSE 79; RESP 20; TEMP 36.3; O2SAT 95; BMI 42.9
[2020-01-15 06:35] VITALS: BP 174/77; PULSE 78; RESP 17; O2SAT 97
--- NOTE | 2020-01-15 06:48 | XR_ITS ---
WS: [id number] XR chest 1V portable [id number] REASON FOR EXAM: sob FINDINGS: Chest is unchanged compared to 06/14/2019. The heart and mediastinum are within normal limits. No active pulmonary parenchymal or pleural disease. Mild degenerative changes in the thoracic spine. XR/XR chest 1V portable [id number] IMPRESSION: No acute chest abnormality.
--- NOTE | 2020-01-15 06:48 | W.ED.SOB ---
HPI - SOB/Dyspnea General: Chief Complaint: Shortness of Breath/Dyspnea Stated Complaint: SOB X 2 DAYS Time Seen by Provider: 01/15/20 06:46 Source: patient Mode of arrival: ambulatory Limitations: no limitations History of Present Illness: HPI Narrative: 44-year-old female has a history of asthma is a smoker. She states she has had increased wheezing and dyspnea over the last week. She states that she has not seen a physician in quite a while due to insurance and is ran out of her nebulizers. Patient denies any sick contacts. Denies any worsening or improving factors. She denies any chest pain. MD elicited complaint: shortness of breath Associated symptoms: Deny abdominal pain, chest pain, fever(s), nausea or vomiting Review of Systems Const: Denies: fever(s), chills, body aches or change in appetite Eyes: Denies: blurry vision or eye discomfort ENMT: Denies: throat pain or dental pain Card: Denies: chest pain Resp: Reports: dyspnea, non-productive cough and wheezing GI: Denies: abdominal pain, nausea, vomiting or diarrhea : Denies: dysuria Musc: Denies: neck pain or back pain Skin/Breast: Denies: rash Neuro: Denies: headache(s) Psych: Denies: depression Luis Miguel/Lymph: Denies: easy bruising All/Imm: Denies: urticaria PFS ED PFSH: Medical History (Updated 01/15/20 @ 07:32 by Renzo Rogers MD) FHx: cholecystectomy Surgical History H/O tubal ligation History of appendectomy Social History Smoking and tobacco status: former smoker Physical Exam Const: COMMON NORMALS: no acute distress, patient oriented x3 and healthy appearing HENMT: COMMON NORMALS: normocephalic and atraumatic HEAD & SCALP: normocephalic and atraumatic Eye: COMMON NORMALS: Equal, round and reactive pupils present and EOMs intact bilaterally PUPIL: Yes Equal, round and reactive pupils present Neck/C-Spine: COMMON NORMALS: full ROM and supple Chest: COMMONS NORMALS: normal inspection of the chest and normal palpation of entire chest wall Resp: COMMON NORMALS: normal respiratory effort, No retractions and No use of accessory muscles AUSCULTATION: wheezes Cardio: COMMON NORMALS: regular rate, regular rhythm and No murmurs present (Cardio) RATE: regular rate RHYTHM: regular rhythm GI: COMMON NORMALS: Normal to inspection, nondistended, normoactive bowel sounds present, Soft to palpation, non-tender and no masses PALPATION: Yes Soft to palpation Extremity: COMMON NORMALS: normal to inspection and full ROM Neuro: COMMON NORMALS: patient oriented x3, moves all extremities and no focal motor deficits Psych: COMMON NORMALS: mental status grossly normal, Normal thought process present and cooperative THOUGHT PROCESS: Normal thought process present Skin: COMMON NORMALS: no rashes or lesions noted and no wounds GENERAL SKIN EXAM: no rashes or lesions noted Course Vital Signs: Vital signs: Vital Signs Temperature 97.4 F L 01/15/20 06:21 Pulse Rate 81 01/15/20 07:21 Respiratory Rate 20 H 01/15/20 07:21 Blood Pressure 174/77 01/15/20 06:35 Pulse Oximetry 95 01/15/20 07:21 MDM - SOB/Dyspnea MDM Narrative: Medical decision making narrative: Patient presents here with bronchitis with likely COPD. Patient's x-ray shows no pneumonia. Will refill her nebulizer prescribe her prednisone along with Keflex. Patient is stable for discharge is to follow-up with PCP and return if worsening. Imaging Data^: CXR: Attestation: I personally reviewed and interpreted this imaging study as follows: My impression: no acute abnormality Discharge Plan Discharge Patient Disposition: Home Clinical Impression: Bronchitis Condition: Stable Prescriptions: New albuterol sulfate 2.5 mg /3 mL (0.083 %) solution for nebulization 2.5 mg INHALATION Q4H PRN (Reason: shortness of breath or wheezing) Qty: 90 RF: 0 Keflex 500 mg capsule 500 mg PO Q6H 7 Days Qty: 28 RF: 0 prednisone 50 mg tablet 50 mg PO DAILY Qty: 5 RF: 0 No Action aspirin 325 mg Tablet 325 mg PO PRN PRN (Reason: Pain) RF: 0 albuterol sulfate 2.5 mg /3 mL (0.083 %) solution for nebulization 2.5 mg INHALATION Q4H PRN (Reason: shortness of breath or wheezing) Qty: 90 RF: 0 Discharge Orders: Discharge ED (Routine); Ordered 12/10/20 Ordered By: Renzo Rogers Discharge Diet: Advance as tolerated Discharge Activity: Resume usual activity Patient Instructions: Acute Bronchitis (ED) Coding Level of Care Code ED Biodiesel Processing Technician for Jeremy Fwd Exam Comprehensive
[2020-01-15] MEDS: predniSONE 20 mg Tablet 60 MG PO (06:57)
[2020-01-15] MEDS: ipratropium-albuterol 3 mL Neb INHALATION (07:13)
[2020-01-15 07:15] VITALS: PULSE 72; RESP 18; O2SAT 96
[2020-01-15 07:21] VITALS: PULSE 81; RESP 20; O2SAT 95
[2020-01-15 08:04] VITALS: BP 145/82; PULSE 78; RESP 16; O2SAT 97
== END 2020-01-15 08:04 | disposition home or self-care (01) ==
PROVIDERS: Emergency Provider Emergency Medicine
DX: J40 Bronchitis, not specified as acute or chronic (principal); Z79.82 Long term (current) use of aspirin; Z87.891 Personal history of nicotine dependence
CPT/HCPCS: 12345; 71045; 94640; 99281; 99283; J7512; J7611

== ENCOUNTER 2020-03-19 08:30 | Emergency (ER) | payer SELFPAY ==
[2020-03-19 08:40] VITALS: BP 148/88; PULSE 100; RESP 20; TEMP 36.7; O2SAT 98; BMI 53.2
--- NOTE | 2020-03-19 08:46 | ED_ITS ---
HPI - SOB/Dyspnea General: Chief Complaint: Shortness of Breath/Dyspnea Stated Complaint: DIFFICULTY BREATHING, HEADACHE Time Seen by Provider: 03/19/20 08:36 Source: patient History of Present Illness: HPI Narrative: History of asthma and COPD. Has been out of her albuterol. Is here in the hospital today because her daughter has acute appendicitis and is awaiting surgery. She decided to check and see if she can get some refill of her medications. Has been having increased shortness of breath and wheezing cough. Does smoke 1 pack of cigarettes a day. MD elicited complaint: shortness of breath and cough Pertinent past history: COPD Associated symptoms: Deny abdominal pain, chest pain or fever(s) Review of Systems General: Reports: 10 or more systems reviewed and unremarkable except in HPI and below Const: Denies: fever(s) Eyes: Denies: change in vision ENMT: Denies: throat pain Card: Denies: chest pain Resp: Reports: dyspnea, non-productive cough and wheezing GI: Denies: abdominal pain : Denies: flank pain Neuro: Denies: headache(s) PFS ED PFSH: Medical History (Updated 03/19/20 @ 08:51 by Bharathi Parada MD) FHx: cholecystectomy Surgical History H/O tubal ligation History of appendectomy Social History Smoking and tobacco status: former smoker Physical Exam Const: COMMON NORMALS: no acute distress, average body habitus, patient celve ented x3, no limitations, healthy appearing, alert and well nourished HENMT: COMMON NORMALS: normocephalic, atraumatic, hearing grossly normal chrissie aterally, external ears normal, EAC's normal, TM's normal bilaterally, Normal external nose present, Normal nasal mucous membranes and turbinates present, moist oral mucous membranes, oropharynx normal, dentition normal and gingiva normal HEAD & SCALP: normocephalic and atraumatic NOSE: Normal external nose present and Normal nasal mucous membranes and turbinates present EXTERNAL EAR: Yes external ears normal EXTERNAL AUDITORY CANAL: EAC's normal TYMPANIC MEMBRANE: TM's normal bilaterally Neck/C-Spine: COMMON NORMALS: full ROM, no lymphadenopathy, supple, no meningeal signs, no JVD, Thyroid normal and No carotid bruits THYROID: Thyroid normal Resp: EFFORT & INSPECTION: Yes able to speak in complete sentences, Yes labored and Yes audible wheezes AUSCULTATION: wheezes Cardio: COMMON NORMALS: no JVD, regular rate, regular rhythm, S1 normal heart sound present, S2 normal heart sound present, No gallops present (Cardio), No clicks present (Cardio), No murmurs present (Cardio), No rub (Cardio) and Peripheral pulses 2+ throughout RATE: regular rate RHYTHM: regular rhythm HEART SOUNDS: S1 normal heart sound present and S2 normal heart sound present PERIPHERAL PULSES: Peripheral pulses 2+ throughout Neuro: COMMON NORMALS: patient oriented x3 SENSORIUM/ORIENTATION: Yes alert MENINGEAL SIGNS: Yes no meningeal signs Course Vital Signs: Vital signs: Vital Signs Temperature 98.0 F 03/19/20 08:40 Pulse Rate 100 03/19/20 08:40 Respiratory Rate 20 H 03/19/20 08:40 Blood Pressure 148/88 03/19/20 08:40 Pulse Oximetry 98 03/19/20 08:40 MDM - SOB/Dyspnea MDM Narrative: Medical decision making narrative: Patient with pulse ox 97%. Does not appear to be in any significant distress. Will give patient albuterol and start her on prednisone. Discharge Plan Discharge Patient Disposition: Home Clinical Impression: Acute exacerbation of chronic obstructive airways disease Condition: Stable Prescriptions: New prednisone 20 mg tablet 40 mg PO BID 5 Days Qty: 20 RF: 0 Tessalon Perles 100 mg capsule 100 mg PO TID PRN (Reason: cough) Qty: 20 RF: 0 Ventolin HFA 90 mcg/actuation HFA aerosol inhaler 2 inh inhalation Q4H Qty: 8.5 RF: 0 No Action aspirin 325 mg Tablet 325 mg PO PRN PRN (Reason: Pain) RF: 0 albuterol sulfate 2.5 mg /3 mL (0.083 %) solution for nebulization 2.5 mg INHALATION Q4H PRN (Reason: shortness of breath or wheezing) Qty: 90 RF: 0 albuterol sulfate 2.5 mg /3 mL (0.083 %) solution for nebulization 2.5 mg INHALATION Q4H PRN (Reason: shortness of breath or wheezing) Qty: 90 RF: 0 prednisone 50 mg tablet 50 mg PO DAILY Qty: 5 RF: 0 Discharge Orders: Discharge ED (Routine); Ordered 03/19/20 Ordered By: Bharathi Parada Discharge Diet: Usual diet Discharge Activity: Resume usual activity Patient Instructions: Opioid Safety Coding Level of Care Code ED Digital Program Manager for Jeremy Cherry Exam Problem Focused
[2020-03-19] MEDS: predniSONE 20 mg Tablet 40 MG PO (08:53)
[2020-03-19] MEDS: albuterol 8 gm MDI 4 PUFF INHALATION (09:04)
[2020-03-19 09:07] VITALS: PULSE 84; RESP 18; O2SAT 94
[2020-03-19 09:08] VITALS: RESP 20; TEMP 36.7; O2SAT 98
== END 2020-03-19 09:09 | disposition home or self-care (01) ==
PROVIDERS: Emergency Provider Emergency Medicine
DX: J44.1 Chronic obstructive pulmonary disease with (acute) exacerbation (principal); Z79.82 Long term (current) use of aspirin; Z87.891 Personal history of nicotine dependence
CPT/HCPCS: 94640; 99283; J3535; J7512

== ENCOUNTER 2020-07-13 11:49 | Emergency (ER) | payer SELFPAY ==
[2020-07-13 12:10] VITALS: BP 169/97; PULSE 103; RESP 16; TEMP 36.8; O2SAT 97; BMI 42.9
--- NOTE | 2020-07-13 12:16 | XRR_ITS ---
PROCEDURE INFORMATION: Exam: XR Left Knee Exam date and time: 07/13/2020 12:02 PM Age: 44 years old Clinical indication: Pain; Swelling or effusion of joint; Knee; Left; Additional info: Swelling/pain TECHNIQUE: Imaging protocol: XR Left knee. Views: 3 views. COMPARISON: No relevant prior studies available. FINDINGS: Bones/joints: Negative for acute bony abnormality. Soft tissues: Normal. XR/XR knee LT 3V* [id number] IMPRESSION: No acute findings.
--- NOTE | 2020-07-13 12:24 | W.ED.EXTPRO ---
HPI - Extremity Problem General: Chief complaint: Extremity Problem,Nontraumatic Stated complaint: Knee Pain, Swelling Time Seen by Provider: 07/13/20 12:24 Source: patient Mode of arrival: ambulatory Limitations: no limitations History of Present Illness: HPI Narrative: Patient is a 44-year-old female who presents to ED today for evaluation of her left knee pain. Patient tells me she has been have pain progressively worsening knee pain over the past few weeks. She reports feeling pressure and tightness in her posterior knee but has now noticed some pain to the anterior lateral portion. Pain is worse with knee flexion and ambulation. She states sometimes her lower extremity will swell and became concerned that she might have a DVT. Denies numbness, tingling, loss of sensation to the extremity. She has not noticed any color/temperature changes. MD Complaint: extremity pain, joint swelling and joint pain Onset (ago): day(s) Pain Consistency: constant Location: left and lower extremity Quality: aching, dull and constant Radiation: none Relieving factors: immobilization Exacerbating factors: range of motion, weight bearing, walking and palpation Associated symptoms: Reports no associated symptoms; Deny chest pain or fever(s) Review of Systems Const: Denies: fever(s), chills, body aches, fatigue or malaise Card: Denies: chest pain Resp: Denies: dyspnea Musc: Reports: joint pain (L knee), joint swelling and limited range of motion (dec knee flexion); Denies: neck pain, back pain, joint redness or joint warmth PFS ED PFSH: Medical History (Updated 07/13/20 @ 13:59 by MICAELA Javed) FHx: cholecystectomy Surgical History H/O tubal ligation History of appendectomy Social History Smoking and tobacco status: former smoker Female Reproductive History: Date of last menstrual period: 06/30/20 Physical Exam Const: COMMON NORMALS: no acute distress, patient oriented x3, no limitations and alert NUTRITIONAL APPEARANCE: obese ORIENTATION/CONSCIOUSNESS: Yes awake, Yes oriented to person, Yes oriented to place and Yes oriented to time Extremity: LEFT LOWER EXTREMITY: Yes knee joint (TTP anterolateral and posterior knee) Left knee: Yes palpation (probable Buck's Cyst present), Yes ROM (dec flexion) and Yes neurovascular exam (normal) Neuro: COMMON NORMALS: patient oriented x3, moves all extremities, no focal motor deficits, no sensory deficits noted and gait normal SENSORIUM/ORIENTATION: Yes alert, Yes oriented to person, Yes oriented to place and Yes oriented to time Skin: COMMON NORMALS: no rashes or lesions noted GENERAL SKIN EXAM: no rashes or lesions noted TRAUMA: no lacerations or abrasions Course Vital Signs: Vital signs: Vital Signs Temperature 98.2 F 07/13/20 12:10 Pulse Rate 100 07/13/20 12:46 Respiratory Rate 18 07/13/20 12:46 Blood Pressure 159/103 07/13/20 12:46 Pulse Oximetry 98 07/13/20 12:46 MDM - Extremity (Nontraumatic) MDM Narrative: Medical decision making narrative: Patient does not have a PCP. Pain is progressively worsening. She has a large Buck's Cyst noted on her ultrasound. Will place patient on NSAIDs and steroids and have case management try to get her a follow-up appointment with orthopedics for further evaluation. Imaging Data^: XR L knee: My impression: NAD Radiologist's impression: [address] [place] [address] XRay Report Signed Patient: Anita Rich Unit #: [id number] : 1975 Age/Sex: 44 / F ADM Date: 07/13/20 Loc: ER Room/Bed: Attending Dr: Ordering Provider/Ordering MD: Daiana Moreno Date of Service: 07/13/20 Procedure(s): XR knee LT 3V* [id number] Accession Number(s): [id number] Report Number: [id number] PROCEDURE INFORMATION: Exam: XR Left Knee Exam date and time: 07/13/2020 12:02 PM Age: 44 years old Clinical indication: Pain; Swelling or effusion of joint; Knee; Left; Additional info: Swelling/pain TECHNIQUE: Imaging protocol: XR Left knee. Views: 3 views. COMPARISON: No relevant prior studies available. FINDINGS: Bones/joints: Negative for acute bony abnormality. Soft tissues: Normal. XR/XR knee LT 3V* [id number] IMPRESSION: No acute findings. Dictated By: Nilesh Tran Signed By: Nilesh Tran Signed Date/Time: 07/13/201411 DD/ 141 US L LE venous: My impression: Shiv Edward tech-no DVT, large Buck's Cyst present with debris Discharge Plan Discharge Patient Disposition: Home Clinical Impression: Synovial cyst of popliteal space [Buck], left knee Condition: Stable Prescriptions: New diclofenac sodium 50 mg tablet,delayed release (DR/EC) 50 mg PO Q12H PRN (Reason: pain) Qty: 20 RF: 0 Medrol (Gonzalo) 4 mg tablets,dose pack See Rx Instructions .ROUTE .COMPLEX Qty: 21 RF: 0 Discontinued prednisone 50 mg tablet 50 mg PO DAILY Qty: 5 RF: 0 No Action aspirin 325 mg Tablet 325 mg PO PRN PRN (Reason: Pain) RF: 0 Tessalon Perles 100 mg capsule 100 mg PO TID PRN (Reason: cough) Qty: 20 RF: 0 Ventolin HFA 90 mcg/actuation HFA aerosol inhaler 2 inh inhalation Q4H Qty: 8.5 RF: 0 albuterol sulfate 2.5 mg /3 mL (0.083 %) solution for nebulization 2.5 mg INHALATION Q4H PRN (Reason: shortness of breath or wheezing) Qty: 90 RF: 0 albuterol sulfate 2.5 mg /3 mL (0.083 %) solution for nebulization 2.5 mg INHALATION Q4H PRN (Reason: shortness of breath or wheezing) Qty: 90 RF: 0 Discharge Orders: Discharge ED (Routine); Ordered 07/13/20 Ordered By: Daiana Moreno Patient Instructions: Buck's Cyst, Buck's Cyst (ED) Coding Level of Care Code ED Photographer Apprentice for Edsong Fwd Exam Expanded Problem Focused
[2020-07-13 12:46] VITALS: BP 159/103; PULSE 100; RESP 18; O2SAT 98
--- NOTE | 2020-07-13 12:54 | USCV_ITS ---
Anita Rich Age: 44 Gender: F : 1975 Exam Date: 07/13/2020 13:10 Ordering Phys: Daiana Moreno Technologist: Adia Hearn [place] [facility] [place]ication: LEG SWELLING HISTORY: Lower extremity pain. PROCEDURES: Venous duplex imaging was performed in only the left lower extremity. The following venous structures were evaluated: common femoral vein, profunda vein, proximal portion of the greater saphenous vein, superficial femoral vein, and the popliteal vein. In addition, the posterior tibial and peroneal trunk were evaluated. Serial compression, augmentation maneuvers, and spectral Doppler flow evaluation were performed. FINDINGS: Normal 2-D Doppler and augmentation and compressibility throughout the lower extremity venous structures. Additional imaging through the proximal calf veins also reveals no thrombus. Limited evaluation of the greater saphenous vein is patent with no thrombus.. Complex cystic mass with low level echos and no vascularity measuring approximately 3.2 cm in the left popliteal fossa. CONCLUSIONS No DVT left lower extremity. Left popliteal fossa Buck's cyst. Dr. Nupur Peacock DO (Electronically Signed) Final Date: 13 July 2020 14:20 S
--- NOTE | 2020-07-14 09:19 | DCPLANNER ---
hris manager had message to schedule a follow up appointment for patient with ortho for a bakers cyst. hris manager called the ortho clinic, spoke with Prerna, gave clinic patients information. hris manager was told that patients information would be printed and reviewed. Clinic will call patient with appointment information.
--- NOTE | 2020-07-20 15:04 | DCPLANNER ---
regional sales manager called the ortho clinic to confirm if a follow up appointment was scheduled for patient. regional sales manager was told that clinic tried to reach patient, and that clinic left a voicemail for patient to call clinic to schedule an appointment. regional sales manager called phone number [phone], unable to speak with patient at this time, a voicemail was left for patient to return housing case manager phone call.
== END 2020-07-13 14:29 | disposition home or self-care (01) ==
PROVIDERS: Emergency Provider Physician Assistant
DX: M71.22 Synovial cyst of popliteal space [Baker], left knee (principal); Z79.82 Long term (current) use of aspirin; Z87.891 Personal history of nicotine dependence
CPT/HCPCS: 73562; 93971; 99282

== ENCOUNTER → 2020-08-23 15:13 | Outpatient (BNVA) | payer MEDICAID, SELFPAY | PROVIDERS: Visit Provider Specialist | DX: M25.562 Pain in left knee (principal) | CPT/HCPCS: 73560; 73565 ==

== ENCOUNTER 2020-09-21 09:32 | Outpatient (CLI) | payer MEDICAID, SELFPAY ==
--- NOTE | 2020-09-21 09:36 | XR_ITS ---
WS: [id number] HIP WITH PELVIS LEFT TECHNIQUE: 3 views of the left hip with pelvis CLINICAL INFORMATION: LEFT LATERAL KNEE PAIN COMPARISON: None. FINDINGS: Left hip is normal in appearance. No acute fractures. Normal femoral neck. Normal left pubic rami. XR/XR hip LT 2-3V wo/w pel* [id number] IMPRESSION: Normal left hip. Tonnis classification: grade 1: sclerosis of femoral head and acetabulum or sli ght joint space narrowing or slight lippig at joint margins
--- NOTE | 2020-09-21 09:36 | XR_ITS ---
WS: [id number] KNEE LEFT TECHNIQUE: 3 views of the left knee CLINICAL INFORMATION: LEFT LATERAL KNEE PAIN COMPARISON: None. FINDINGS: Left knee is normal in appearance. No evidence of acute fracture dislocation. Mild narrowing medial j oint compartment. Mild soft tissue edema. Small suprapatellar effusion. Patella is normal. XR/XR knee LT 3V* [id number] IMPRESSION: 1. Mild soft tissue edema. Small suprapatellar effusion. 2. No acute fractures. Kellgren-Gerry Classification: grade 0 (none): definite absence of x-ray gianni nges of osteoarthritis
== END 2020-09-21 09:33 | disposition home or self-care (01) ==
PROVIDERS: PCP Nurse Practitioner Family; Visit Provider Nurse Practitioner Family
DX: M25.562 Pain in left knee (principal); R60.0 Localized edema; M25.462 Effusion, left knee
CPT/HCPCS: 73502; 73562

== ENCOUNTER 2020-11-08 11:06 | Outpatient (CLI) | payer OTHER, MEDICAID, SELFPAY ==
--- NOTE | 2020-11-08 11:11 | MM_ITS ---
WS: [id number] SCREENING DIGITAL MAMMOGRAM WITH CAD HISTORY: SCREENING COMPARISON: None available. Bilateral CC and MLO views submitted. Computer aided detection analyzed. Breast composition: The breasts are heterogeneously dense, which may obscure small masses. Numerous b ilateral obscured masses within each breast. The largest mass in the RIGHT breast central to the nipp le measuring 2.9 cm x 2.5 cm. Lobulated high density mass in the upper outer quadrant of the LEFT sandip ast measures 2.5 x 2.9 cm. There are multiple additional smaller masses present which are obscured al so. No calcifications are identified. MM/[place] [id number] IMPRESSION: BI-RADS: 0-Incomplete: Need additional imaging evaluation FOLLOW UP: Need Additional Imaging RIGHT breast: Spot compression views (CC and MLO). True ML. Ultrasound to follo w if abnormality persists. LEFT breast: Spot compression views (CC and MLO). True ML. Ultrasound to follow if abnormality persists.
== END 2020-11-08 11:07 | disposition home or self-care (01) ==
LOC: RADSHAW 11:10
PROVIDERS: PCP Nurse Practitioner Family; Visit Provider Nurse Practitioner Family
DX: Z12.31 Encounter for screening mammogram for malignant neoplasm of breast (principal)
CPT/HCPCS: 77067

== ENCOUNTER 2020-11-24 08:30 | Outpatient (CLI) | payer OTHER, MEDICAID, SELFPAY ==
--- NOTE | 2020-11-24 08:37 | US_ITS ---
WS: [id number] ADDITIONAL VIEWS BILATERAL MAMMOGRAM AND BILATERAL BREAST ULTRASOUND ADDITIONAL VIEWS BILATERAL MAMMOGRAM HISTORY: Dense breasts with multiple obscured nodules on screening mammogram. COMPARISON: 11/08/2020. Right breast: Numerous obscured and partially obscured masses in the upper outer quadrant surrounded by very dense fibroglandular tissue. There is a lobulated nodule measuring 3.7 x 1.9 cm near 12:00. M ajority of these nodules are obscured. Left breast: Multiple nodules in the upper outer quadrant of the LEFT breast and also towards the 10- 11 o'clock axis. Largest nodule measures 2.4 x 3.0 cm. Bilateral breast ultrasound, limited. RIGHT breast: Multiple cysts in the upper outer quadrant of the RIGHT breast. No solid mass. The larg est cyst measures 3.2 x 1.6 x 3.1 cm. LEFT breast: Numerous cysts in the upper outer quadrant of the LEFT breast and also at 11 and 12:00. Largest cyst at 12:00 measures 2.3 x 1.6 x 3.7 cm. Small benign lymph nodes also noted. No solid mass . US/US breast BI limited* [id number] IMPRESSION: BI-RADS: 2-Benign FOLLOW UP: 1 Year Follow-up Multiple bilateral breast masses correspond to numerous cysts.
== END 2020-11-24 08:31 | disposition home or self-care (01) ==
LOC: RADSHAW 08:32
PROVIDERS: PCP Nurse Practitioner Family; Visit Provider Nurse Practitioner Family
DX: R92.2 Inconclusive mammogram (principal); N63.10 Unspecified lump in the right breast, unspecified quadrant; N63.20 Unspecified lump in the left breast, unspecified quadrant
CPT/HCPCS: 76642; 77066

== ENCOUNTER 2021-03-27 09:45 | Emergency (ER) | payer MEDICAID, SELFPAY ==
[2021-03-27 09:49] VITALS: BP 168/101; PULSE 95; RESP 24; TEMP 36.8; O2SAT 98; BMI 39.4
--- NOTE | 2021-03-27 09:53 | XRR_ITS ---
PROCEDURE INFORMATION: Exam: XR Chest Exam date and time: 03/27/2021 9:53 AM Age: 45 years old Clinical indication: Dyspnea; Additional info: Dyspnea, h/o asthma; Shield abd TECHNIQUE: Imaging protocol: XR of the chest. Views: 1 view. COMPARISON: CR XR chest 1V portable [id number] 01/15/2020 7:06 AM FINDINGS: Lungs: The lungs are well expanded. Subtle hazy opacity left lateral costophrenic angle. No focal consolidation. Pleural spaces: Fusion costophrenic angle sharp. No visible pleural effusion or pneumothorax. Heart/Mediastinum: Unremarkable. No cardiomegaly. Bones/joints: Unremarkable. XR/XR chest 1V portable [id number] IMPRESSION: Subtle hazy opacity over the left lateral costophrenic angle could potentially represent focal pneumonitis, versus artifact related to overlying soft tissues. No focal consolidation.
--- NOTE | 2021-03-27 09:55 | W.ED.SOB ---
HPI - SOB/Dyspnea General: Chief Complaint: Shortness of Breath/Dyspnea Stated Complaint: sob Time Seen by Provider: 03/27/21 09:48 Source: patient Mode of arrival: ambulatory Limitations: no limitations History of Present Illness: HPI Narrative: Patient reports increased shortness of breath since yesterday morning. She states she has asthma and takes occasional albuterol inhaler. She states she borrowed a friend's nebulizer ran out of albuterol solution. She has possible history of hypertension and takes an unknown antihypertensive medication for that. She does smoke. She denies any allergies to medications. She states she is sore throat for 4 days. She states throat pain is almost gone now. She denies any fever. She states that she has not been vaccinated for COVID and has not been diagnosed with Covid. MD elicited complaint: shortness of breath and asthma attack Pertinent past history: asthma Onset (ago): day(s) (2) Severity: moderate Exacerbating factors: exertion Relieving factors: bronchodilators Known history of: asthma Associated symptoms: Reports chest congestion and cough; Deny abdominal pain, chest pain, diaphoresis, fever(s), hemoptysis, nausea, orthopnea, palpitations or vomiting Treatment prior to arrival: other (Ran out of bronchodilators at home.) Review of Systems Const: Denies: fever(s) or diaphoresis Eyes: Denies: change in vision Card: Denies: chest pain, palpitations or orthopnea Resp: Reports: dyspnea, non-productive cough, wheezing and chest congestion; Denies: hemoptysis GI: Denies: abdominal pain, nausea or vomiting : Denies: flank pain Musc: Denies: neck pain or back pain Skin/Breast: Denies: rash or pruritus Neuro: Denies: headache(s) or numbness in extremities Psych: Denies: anxiety Luis Miguel/Lymph: Denies: enlarged lymph nodes PFSH ED PFSH: Medical History FHx: cholecystectomy Surgical History H/O tubal ligation History of appendectomy Social History Smoking and tobacco status: current every day smoker (1/2 pack a day ) Female Reproductive History: Date of last menstrual period: 06/30/20 Physical Exam Const: COMMON NORMALS: no acute distress, patient oriented x3, no limitations and well nourished EXAM LIMITATIONS: altered mental status GENERAL APPEARANCE: cooperative HENMT: COMMON NORMALS: normocephalic and atraumatic HEAD & SCALP: normocephalic and atraumatic FACE & SINUS: normal facial exam Eye: COMMON NORMALS: EOMs intact bilaterally Neck/C-Spine: COMMON NORMALS: full ROM, no lymphadenopathy, supple and no meningeal signs GENERAL: Yes normal visual inspection Lymph: LYMPHATIC: no lymphadenopathy noted Chest: COMMONS NORMALS: normal inspection of the chest and normal palpation of entire chest wall CHEST: No Ecchymosis present and No rash Resp: COMMON NORMALS: No retractions EFFORT & INSPECTION: Yes tachypneic, Yes respiratory distress (mild; mod wheezing inspir/expir) and No uses accessory muscles Cardio: COMMON NORMALS: regular rate, regular rhythm and Peripheral pulses 2+ throughout JUGULAR VENOUS DISTENTION: no JVD RATE: regular rate RHYTHM: regular rhythm PERIPHERAL PULSES: Peripheral pulses 2+ throughout GI: COMMON NORMALS: Normal to inspection, nondistended, normoactive bowel sounds present and non-tender Extremity: COMMON NORMALS: normal to inspection, full ROM and capillary refill normal Neuro: COMMON NORMALS: patient oriented x3, CN's II-XII intact bilaterally, no focal motor deficits and no sensory deficits noted MENINGEAL SIGNS: Yes no meningeal signs Psych: COMMON NORMALS: mental status grossly normal and Normal thought process present THOUGHT PROCESS: Normal thought process present Skin: COMMON NORMALS: no rashes or lesions noted and no wounds GENERAL SKIN EXAM: no rashes or lesions noted Course Vital Signs: Vital signs: Vital Signs Temperature 98.2 F 03/27/21 09:49 Pulse Rate 88 03/27/21 10:09 Respiratory Rate 18 03/27/21 10:09 Blood Pressure 168/101 03/27/21 09:49 Pulse Oximetry 98 03/27/21 10:09 MDM - SOB/Dyspnea Medical Decision Making Asthma attack Lab Data I reviewed the patient's lab results. Labs/Radiology: Laboratory Results Group A Strep Rapid Negative (Negative) 03/27/21 10:18 Imaging Data CXR: My impression: Minimal atelectasis in the left base otherwise clear x-ray. Other Data 1045: Patient was reassessed and patient is feeling much better. She states she is no longer short of breath. Oxygen saturation is 96% on room air. Lungs are clear now. No wheezing at all. No retractions. Discharge Plan Discharge Condition: Stable Prescriptions: No Action meloxicam 15 mg tablet 15 mg PO DAILY Qty: 60 0RF Rx Instructions: take 1 tablet daily aspirin 325 mg Tablet 325 mg PO PRN PRN (Reason: Pain) 0RF Tessalon Perles 100 mg capsule 100 mg PO TID PRN (Reason: cough) Qty: 20 0RF Ventolin HFA 90 mcg/actuation HFA aerosol inhaler 2 inh inhalation Q4H Qty: 8.5 0RF albuterol sulfate 2.5 mg /3 mL (0.083 %) solution for nebulization 2.5 mg INHALATION Q4H PRN (Reason: shortness of breath or wheezing) Qty: 90 0RF albuterol sulfate 2.5 mg /3 mL (0.083 %) solution for nebulization 2.5 mg INHALATION Q4H PRN (Reason: shortness of breath or wheezing) Qty: 90 0RF diclofenac sodium 50 mg tablet,delayed release (DR/EC) 50 mg PO Q12H PRN (Reason: pain) Qty: 20 0RF Referrals: Jenniffer Calvin NP [Referring] - Coding Level of Care Code ED Automatic Packer Operator for Chg Fwd Exam Comprehensive
[2021-03-27] MEDS: ipratropium-albuterol 3 mL Neb INHALATION (10:02)
[2021-03-27 10:04] VITALS: PULSE 84; RESP 18; O2SAT 98
[2021-03-27 10:09] VITALS: PULSE 88; RESP 18; O2SAT 98
[2021-03-27 10:37] LABS: Rapid Strep A Test Negative (Negative)
[2021-03-27 11:00] VITALS: BP 132/87; PULSE 87; RESP 18; O2SAT 100
== END 2021-03-27 11:08 | disposition home or self-care (01) ==
PROVIDERS: Emergency Provider Family Medicine
DX: R06.02 Shortness of breath (principal); Z79.82 Long term (current) use of aspirin; F17.210 Nicotine dependence, cigarettes, uncomplicated
CPT/HCPCS: 71045; 87081; 87880; 94640; 96374; 99284; J2930

== ENCOUNTER 2021-07-02 18:19 | Emergency (ER) | payer OTHER, MEDICAID, SELFPAY ==
[2021-07-02 18:35] VITALS: BP 183/103; PULSE 108; RESP 20; TEMP 36.9; O2SAT 93; BMI 42.9
--- NOTE | 2021-07-02 18:55 | ECG_ITS ---
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 Measurements Intervals Alba Rate: 102 P: 80 HI: 156 QRS: 60 QRSD: 82 T: 84 QT: 358 QTc: 467 Interpretive Statements SINUS TACHYCARDIA No previous ECG available for comparison Electronically Signed On 07-03-2021 20:30:30 CDT by Amos Faria M.D. [id number]
--- NOTE | 2021-07-02 18:55 | XRR_ITS ---
PROCEDURE INFORMATION: Exam: XR Chest Exam date and time: 07/02/2021 7:04 PM Age: 45 years old Clinical indication: Other: Asthma attack; Additional info: SOB and wheezing TECHNIQUE: Imaging protocol: XR of the chest. Views: 1 view. COMPARISON: CR XR chest 1V portable [id number] 03/27/2021 10:37 AM FINDINGS: Lungs: Unremarkable. No consolidation. Pleural spaces: Unremarkable. No pleural effusion. No pneumothorax. Heart/Mediastinum: Unremarkable. No cardiomegaly. Bones/joints: Unremarkable. XR/XR chest 1V portable [id number] IMPRESSION: No acute findings.
--- NOTE | 2021-07-02 18:59 | W.ED.SOB ---
Documented by User: MICAELA Mccray 07/03/21 00:35 HPI - SOB/Dyspnea General: Chief Complaint: Shortness of Breath/Dyspnea Stated Complaint: asthma attack Time Seen by Provider: 07/02/21 18:49 History of Present Illness: HPI Narrative: Patient is a 45-year-old female comes to the ED with wheezing and shortness of breath. Patient has not been officially diagnosed with asthma but has had several attacks like this in the past that they considered acute asthma attacks. Patient has albuterol breathing treatments at home as needed for any wheezing. She started developing a mild cough last night. She woke up this morning with a worsening cough and was having wheezing and shortness of breath. Cough is described as dry and nonproductive. She has used her albuterol inhaler a couple times today and has not improved her shortness of breath or wheezing. Shortness of breath described as a chest tightness and like she cannot get enough oxygen. Endorses having bad seasonal allergies this year. Denies any fevers, chills, nausea/vomiting, abdominal pain, bladder or bowel symptoms. She has had asthma attacks like this before and was seen here for same complaint back on March 27, 2021. Patient is a daily tobacco smoker. Associated symptoms: Deny abdominal pain, chest pain, fever(s), nausea, orthopnea, palpitations or vomiting Review of Systems Const: Denies: fever(s), chills or fatigue Eyes: Denies: change in vision or eye discomfort ENMT: Denies: throat pain, odynophagia, nasal discharge or nasal congestion Card: Denies: chest pain, palpitations, edema, swelling of feet/ankles, dyspnea on exertion or orthopnea Resp: Reports: dyspnea, non-productive cough and wheezing; Denies: productive cough GI: Denies: abdominal pain, nausea, vomiting, diarrhea, constipation or hematochezia : Denies: flank pain, dysuria or hematuria Musc: Denies: neck pain, back pain or extremity swelling Skin/Breast: Denies: rash or new lesions Neuro: Denies: headache(s), numbness in extremities or weakness in extremities [facility] PFSH: Medical History FHx: cholecystectomy Surgical History H/O tubal ligation History of appendectomy Social History Smoking and tobacco status: current every day smoker (1/2 pack a day ) Female Reproductive History: Date of last menstrual period: 06/30/20 Physical Exam Const: COMMON NORMALS: patient oriented x3 and alert GENERAL APPEARANCE: cooperative HENMT: COMMON NORMALS: normocephalic HEAD & SCALP: normocephalic MOUTH: Normal oral and palatal mucosa present THROAT: posterior oropharynx normal and uvula midline Eye: COMMON NORMALS: Equal, round and reactive pupils present and conjunctivae normal CONJUNCTIVA: Yes conjunctivae normal PUPIL: Yes Equal, round and reactive pupils present Neck/C-Spine: COMMON NORMALS: supple GENERAL: Yes normal visual inspection Resp: COMMON NORMALS: normal respiratory effort, No retractions and No use of accessory muscles EFFORT & INSPECTION: Yes tachypneic (20-24 resp/min) and No Actively coughing AUSCULTATION: wheezes expiratory wheezes and throughout Cardio: COMMON NORMALS: regular rate, regular rhythm, S1 normal heart sound present, S2 normal heart sound present, No gallops present (Cardio), No clicks present (Cardio), No murmurs present (Cardio) and Peripheral pulses 2+ throughout RATE: regular rate RHYTHM: regular rhythm HEART SOUNDS: S1 normal heart sound present and S2 normal heart sound present PERIPHERAL PULSES: Peripheral pulses 2+ throughout GI: COMMON NORMALS: Normal to inspection, nondistended, normoactive bowel sounds present, Soft to palpation, non-tender and no masses PALPATION: Yes Soft to palpation : COMMON NORMALS: Yes no CVA tenderness BLADDER/KIDNEY EXAM: Yes no CVA tenderness Back/Pelvis: COMMON NORMALS: no CVA tenderness Extremity: COMMON NORMALS: normal to inspection Neuro: COMMON NORMALS: patient oriented x3 and moves all extremities SENSORIUM/ORIENTATION: Yes alert Skin: GENERAL SKIN EXAM: dry skin Course ED course: Patient received IV Solu-Medrol, magnesium and 2 DuoNeb breathing treatments initially. Her wheezing improved just a little bit so I ordered another 2 more DuoNeb breathing treatments. After those breathing treatments were done her wheezing had improved significantly and she was feeling a lot better. Vital Signs: Vital signs: Vital Signs Temperature 98.5 F 07/02/21 18:35 Pulse Rate 120 H 07/02/21 20:45 Respiratory Rate 18 07/02/21 20:19 Blood Pressure 184/105 07/02/21 20:45 Pulse Oximetry 91 07/02/21 20:45 I went and to recheck patient after the second round of breathing treatments and her wheezing had improved and she is feel a lot better. Her O2 saturation on room air was around 93 to 95%. She did not appear labored breathing at all and had normal respiratory rate. MDM - SOB/Dyspnea Medical Decision Making Patient is a 45 old female comes to the ED with cute onset of shortness of breath and wheezing. Patient has a history of asthma and has had an episodes like this in the past. She says it started this morning she woke up and she used a couple albuterol breathing treatments with little improvement. Denies any other symptoms. CBC was unremarkable. She had a potassium of 2.9 but the rest of her CMP was unremarkable. Chest x-ray showed no acute findings. EKG showed sinus tachycardia, [address] segment elevation or depression seen. Patient was given a dose of p.o. potassium here in the ED. Patient received IV Solu-Medrol, magnesium and 2 DuoNeb breathing treatments initially. Her wheezing improved just a little bit so I ordered another 2 more DuoNeb breathing treatments. After those breathing treatments were done her wheezing had improved significantly and she was feeling a lot better. Patient diagnosed with asthma with a exacerbation and hypokalemia. She was discharged home with a prescription for some prednisone and was told to follow-up with her PCP within the next 3 to 5 days for reevaluation and to recheck her potassium levels. Return to ED precautions given. Patient understood and agreed with plan. Lab Data I reviewed the patient's lab results. : 07/02/21 19:15 07/02/21 19:15 Labs/Radiology: Radiology Impressions Chest X-Ray 07/02/21 18:55 IMPRESSION: No acute findings. Laboratory Results WBC 14.2 10^3/uL (4.0-10.0) H 07/02/21 19:15 RBC 4.41 10^6/uL (4.1-5.3) 07/02/21 19:15 Hgb 14.2 g/dL (11.5-15.3) 07/02/21 19:15 Hct 41.6 % (37.0-47.0) 07/02/21 19:15 MCV 94.3 fl (81-99) 07/02/21 19:15 MCH 32.2 pg (28.0-34.0) 07/02/21 19:15 MCHC 34.1 g/dL (30.0-36.0) 07/02/21 19:15 RDW 12.6 % (12.1-15.1) 07/02/21 19:15 Plt Count 304 10^3/cmm (130-400) 07/02/21 19:15 MPV 10.0 fL (7.4-10.4) 07/02/21 19:15 Neut % (Auto) 79.5 % 07/02/21 19:15 Lymph % (Auto) 14.1 % 07/02/21 19:15 [place] % (Auto) 4.1 % 07/02/21 19:15 Eos % (Auto) 1.6 % 07/02/21 19:15 Baso % (Auto) 0.5 % 07/02/21 19:15 Neut # (Auto) 11.28 10^3/uL (1.8-7.7) H 07/02/21 19:15 Lymph # (Auto) 2.0 10^3/uL (0.8-4.8) 07/02/21 19:15 [place] # (Auto) 0.6 10^3/uL (0.2-0.9) 07/02/21 19:15 Eos # (Auto) 0.2 10^3/uL (0.0-0.8) 07/02/21 19:15 Baso # (Auto) 0.1 10^3/uL (0.0-0.1) 07/02/21 19:15 Nucleated RBC % (auto) 0 % 07/02/21 19:15 Nucleated RBCs # 0.0 /100WBC 07/02/21 19:15 Sodium 139 mmol/L (136-145) 07/02/21 19:15 Potassium 2.9 mmol/L (3.5-5.1) L 07/02/21 19:15 Chloride 99 mmol/L (98-107) 07/02/21 19:15 Carbon Dioxide 29 mmol/L (22-29) 07/02/21 19:15 Anion Gap 13.9 (5-19) 07/02/21 19:15 BUN 14 mg/dL (6-20) 07/02/21 19:15 Creatinine 0.7 mg/dL (0.5-0.9) 07/02/21 19:15 GFR Calculation 90.9 mL/min (90-130) 07/02/21 19:15 Glucose 109 mg/dL (65-115) 07/02/21 19:15 Calculated Osmolality 289 mOsm/kg (285-295) 07/02/21 19:15 Calcium 9.2 mg/dL (8.5-10.5) 07/02/21 19:15 Total Bilirubin 0.2 mg/dL (0.15-1.2) 07/02/21 19:15 AST 32 U/L (0-32) 07/02/21 19:15 ALT 41 U/L (0-33) H 07/02/21 19:15 Alkaline Phosphatase 94 IU/L (35-105) 07/02/21 19:15 Total Protein 7.5 g/dL (6.6-8.7) 07/02/21 19:15 Albumin 4.6 g/dL (3.5-5.2) 07/02/21 19:15 Globulin 2.9 g/dL (1.3-4.6) 07/02/21 19:15 EKG Data EKG 1: EKG Interpretation Date: 07/02/21 Interpretation: Sinus tachycardia, 102 bpm, no ST segment elevation or depression seen. Discharge Plan Discharge Patient Disposition: Home Clinical Impression: Hypokalemia Asthma with exacerbation Qualifiers: Asthma severity: moderate Asthma persistence: unspecified Qualified Code(s): J45.901 - Unspecified asthma with (acute) exacerbation Condition: Stable Prescriptions: New prednisone 20 mg tablet 20 mg PO BID 5 Days Qty: 10 0RF No Action meloxicam 15 mg tablet 15 mg PO DAILY Qty: 60 0RF Rx Instructions: take 1 tablet daily aspirin 325 mg Tablet 325 mg PO PRN PRN (Reason: Pain) 0RF Tessalon Perles 100 mg capsule 100 mg PO TID PRN (Reason: cough) Qty: 20 0RF Ventolin HFA 90 mcg/actuation HFA aerosol inhaler 2 inh inhalation Q4H Qty: 8.5 0RF ProAir HFA 90 mcg/actuation HFA aerosol inhaler 2 inh inhalation Q6H PRN (Reason: shortness of breath or wheezing) Qty: 8.5 2RF Rx Instructions: prn shortness of breath or wheezing albuterol sulfate 5 mg/mL solution for nebulization 2.5 mg inhalation Q4H PRN (Reason: shortness of breath or wheezing) Qty: 25 2RF albuterol sulfate 2.5 mg /3 mL (0.083 %) solution for nebulization 2.5 mg INHALATION Q4H PRN (Reason: shortness of breath or wheezing) Qty: 90 0RF albuterol sulfate 2.5 mg /3 mL (0.083 %) solution for nebulization 2.5 mg INHALATION Q4H PRN (Reason: shortness of breath or wheezing) Qty: 90 0RF diclofenac sodium 50 mg tablet,delayed release (DR/EC) 50 mg PO Q12H PRN (Reason: pain) Qty: 20 0RF Discharge Orders: Discharge ED (Routine); Ordered 07/02/21 Ordered By: Pasquale Wells Discharge Diet: Regular Discharge Activity: Increase activity as tolerated Patient Instructions: Asthma Exacerbation - Adult Activity Restrictions/Additional Instructions: Follow-up with medical provider as directed in the next 3 to 5 days to get reevaluated and to recheck potassium levels. Take medications as prescribed. Return to the ER or your medical provider if condition worsens. Please read and understand discharge instructions. Thank you for choosing [facility] for your healthcare needs today. Please realize this is an emergency room and that we are providing you with a medical screening exam and this may not be complete and all inclusive of all the testing and or work up that you may need to determine your ailment or severity of your illness. It is very important that you follow up as instructed or that you return to the Emergency Department should you have concerns or if your condition changes or worsens in any way. Coding Level of Care Code ED Risk Analyst for Chg Fwd Exam Comprehensive Documented by User: Miguel Giordano Guzman, DO 07/03/21 00:42 HPI - SOB/Dyspnea General: Chief Complaint: Shortness of Breath/Dyspnea Stated Complaint: asthma attack Time Seen by Provider: 07/02/21 18:49 [facility] ED PFSH: Medical History FHx: cholecystectomy Surgical History H/O tubal ligation History of appendectomy Social History Smoking and tobacco status: current every day smoker (1/2 pack a day ) Course Vital Signs: Vital signs: Vital Signs Temperature 98.5 F 07/02/21 18:35 Pulse Rate 120 H 07/02/21 20:45 Respiratory Rate 18 07/02/21 20:19 Blood Pressure 184/105 07/02/21 20:45 Pulse Oximetry 91 07/02/21 20:45 MDM - SOB/Dyspnea Medical Decision Making Patient is a 45 old female comes to the ED with cute onset of shortness of breath and wheezing. Patient has a history of asthma and has had an episodes like this in the past. She says it started this morning she woke up and she used a couple albuterol breathing treatments with little improvement. Denies any other symptoms. CBC was unremarkable. She had a potassium of 2.9 but the rest of her CMP was unremarkable. Chest x-ray showed no acute findings. EKG showed sinus tachycardia, [address] segment elevation or depression seen. Patient was given a dose of p.o. potassium here in the ED. Patient received IV Solu-Medrol, magnesium and 2 DuoNeb breathing treatments initially. Her wheezing improved just a little bit so I ordered another 2 more DuoNeb breathing treatments. After those breathing treatments were done her wheezing had improved significantly and she was feeling a lot better. Patient diagnosed with asthma with a exacerbation and hypokalemia. She was discharged home with a prescription for some prednisone and was told to follow-up with her PCP within the next 3 to 5 days for reevaluation and to recheck her potassium levels. Return to ED precautions given. Patient understood and agreed with plan. This patient was originally seen by Mr. Priscilla PA-C.? I agree with his history, evaluation, and treatment. Lab Data : 07/02/21 19:15 07/02/21 19:15 Labs/Radiology: Radiology Impressions Chest X-Ray 07/02/21 18:55 IMPRESSION: No acute findings. Laboratory Results WBC 14.2 10^3/uL (4.0-10.0) H 07/02/21 19:15 RBC 4.41 10^6/uL (4.1-5.3) 07/02/21 19:15 Hgb 14.2 g/dL (11.5-15.3) 07/02/21 19:15 Hct 41.6 % (37.0-47.0) 07/02/21 19:15 MCV 94.3 fl (81-99) 07/02/21 19:15 MCH 32.2 pg (28.0-34.0) 07/02/21 19:15 MCHC 34.1 g/dL (30.0-36.0) 07/02/21 19:15 RDW 12.6 % (12.1-15.1) 07/02/21 19:15 Plt Count 304 10^3/cmm (130-400) 07/02/21 19:15 MPV 10.0 fL (7.4-10.4) 07/02/21 19:15 Neut % (Auto) 79.5 % 07/02/21 19:15 Lymph % (Auto) 14.1 % 07/02/21 19:15 [place] % (Auto) 4.1 % 07/02/21 19:15 Eos % (Auto) 1.6 % 07/02/21 19:15 Baso % (Auto) 0.5 % 07/02/21 19:15 Neut # (Auto) 11.28 10^3/uL (1.8-7.7) H 07/02/21 19:15 Lymph # (Auto) 2.0 10^3/uL (0.8-4.8) 07/02/21 19:15 [place] # (Auto) 0.6 10^3/uL (0.2-0.9) 07/02/21 19:15 Eos # (Auto) 0.2 10^3/uL (0.0-0.8) 07/02/21 19:15 Baso # (Auto) 0.1 10^3/uL (0.0-0.1) 07/02/21 19:15 Nucleated RBC % (auto) 0 % 07/02/21 19:15 Nucleated RBCs # 0.0 /100WBC 07/02/21 19:15 Sodium 139 mmol/L (136-145) 07/02/21 19:15 Potassium 2.9 mmol/L (3.5-5.1) L 07/02/21 19:15 Chloride 99 mmol/L (98-107) 07/02/21 19:15 Carbon Dioxide 29 mmol/L (22-29) 07/02/21 19:15 Anion Gap 13.9 (5-19) 07/02/21 19:15 BUN 14 mg/dL (6-20) 07/02/21 19:15 Creatinine 0.7 mg/dL (0.5-0.9) 07/02/21 19:15 GFR Calculation 90.9 mL/min (90-130) 07/02/21 19:15 Glucose 109 mg/dL (65-115) 07/02/21 19:15 Calculated Osmolality 289 mOsm/kg (285-295) 07/02/21 19:15 Calcium 9.2 mg/dL (8.5-10.5) 07/02/21 19:15 Total Bilirubin 0.2 mg/dL (0.15-1.2) 07/02/21 19:15 AST 32 U/L (0-32) 07/02/21 19:15 ALT 41 U/L (0-33) H 07/02/21 19:15 Alkaline Phosphatase 94 IU/L (35-105) 07/02/21 19:15 Total Protein 7.5 g/dL (6.6-8.7) 07/02/21 19:15 Albumin 4.6 g/dL (3.5-5.2) 07/02/21 19:15 Globulin 2.9 g/dL (1.3-4.6) 07/02/21 19:15 Discharge Plan Discharge Patient Disposition: Home Clinical Impression: Hypokalemia Asthma with exacerbation Qualifiers: Asthma severity: moderate Asthma persistence: unspecified Qualified Code(s): J45.901 - Unspecified asthma with (acute) exacerbation Condition: Stable Prescriptions: New prednisone 20 mg tablet 20 mg PO BID 5 Days Qty: 10 0RF No Action meloxicam 15 mg tablet 15 mg PO DAILY Qty: 60 0RF Rx Instructions: take 1 tablet daily aspirin 325 mg Tablet 325 mg PO PRN PRN (Reason: Pain) 0RF Tessalon Perles 100 mg capsule 100 mg PO TID PRN (Reason: cough) Qty: 20 0RF Ventolin HFA 90 mcg/actuation HFA aerosol inhaler 2 inh inhalation Q4H Qty: 8.5 0RF ProAir HFA 90 mcg/actuation HFA aerosol inhaler 2 inh inhalation Q6H PRN (Reason: shortness of breath or wheezing) Qty: 8.5 2RF Rx Instructions: prn shortness of breath or wheezing albuterol sulfate 5 mg/mL solution for nebulization 2.5 mg inhalation Q4H PRN (Reason: shortness of breath or wheezing) Qty: 25 2RF albuterol sulfate 2.5 mg /3 mL (0.083 %) solution for nebulization 2.5 mg INHALATION Q4H PRN (Reason: shortness of breath or wheezing) Qty: 90 0RF albuterol sulfate 2.5 mg /3 mL (0.083 %) solution for nebulization 2.5 mg INHALATION Q4H PRN (Reason: shortness of breath or wheezing) Qty: 90 0RF diclofenac sodium 50 mg tablet,delayed release (DR/EC) 50 mg PO Q12H PRN (Reason: pain) Qty: 20 0RF Discharge Orders: Discharge ED (Routine); Ordered 07/02/21 Ordered By: Pasquale Wells Discharge Diet: Regular Discharge Activity: Increase activity as tolerated Patient Instructions: Asthma Exacerbation - Adult Activity Restrictions/Additional Instructions: Follow-up with medical provider as directed in the next 3 to 5 days to get reevaluated and to recheck potassium levels. Take medications as prescribed. Return to the ER or your medical provider if condition worsens. Please read and understand discharge instructions. Thank you for choosing [facility] for your healthcare needs today. Please realize this is an emergency room and that we are providing you with a medical screening exam and this may not be complete and all inclusive of all the testing and or work up that you may need to determine your ailment or severity of your illness. It is very important that you follow up as instructed or that you return to the Emergency Department should you have concerns or if your condition changes or worsens in any way. Coding Level of Care Code ED Risk Analyst for Jeremy Fwd Exam Comprehensive
[2021-07-02 19:20] LABS: Basophils # 0.1 10^3/uL (0.0-0.1); Basophils % 0.5 %; Eosinophils # 0.2 10^3/uL (0.0-0.8); Eosinophils % 1.6 %; Hematocrit 41.6 % (37.0-47.0); Hemoglobin 14.2 g/dL (11.5-15.3); Lymphocytes % 14.1 %; Mean Corpuscular HGB Conc 34.1 g/dL (30.0-36.0); Mean Corpuscular Hemoglobin 32.2 pg (28.0-34.0); Mean Corpuscular Volume 94.3 fl (81-99); Monocytes # 0.6 10^3/uL (0.2-0.9); Monocytes % 4.1 %; Neutrophils # 11.28 10^3/uL (1.8-7.7); Neutrophils % 79.5 %; Nucleated Red Blood Cells % 0 %; Platelet Count 304 10^3/cmm (130-400); Red Blood Count 4.41 10^6/uL (4.1-5.3); Red Cell Distribution Width 12.6 % (12.1-15.1); White Blood Count 14.2 10^3/uL (4.0-10.0)
[2021-07-02] MEDS: magnesium sulfate premix 2 GM/50 ML PIGGYBACK IV (19:22)
[2021-07-02] MEDS: ipratropium-albuterol 3 mL Neb 6 ML INHALATION ×2 (19:27→20:19)
[2021-07-02] MEDS: sodium chloride 0.9% 500 ML 999 ML IV (19:27)
[2021-07-02 19:30] VITALS: PULSE 82; RESP 18; O2SAT 95
[2021-07-02 19:34] VITALS: PULSE 108
[2021-07-02 19:37] LABS: Alanine Aminotransferase 41 U/L (0-33); Albumin Level 4.6 g/dL (3.5-5.2); Alkaline Phosphatase 94 IU/L (35-105); Anion Gap 13.9 (5-19); Aspartate Amino Transferase 32 U/L (0-32); Blood Urea Nitrogen 14 mg/dL (6-20); Calcium 9.2 mg/dL (8.5-10.5); Carbon Dioxide 29 mmol/L (22-29); Chloride 99 mmol/L (98-107); Globulin 2.9 g/dL (1.3-4.6); Glomerular Filtration Rate 90.9 mL/min (90-130); Glucose 109 mg/dL (65-115); Osmolality Calculated 289 mOsm/kg (285-295); Sodium 139 mmol/L (136-145); Total Bilirubin 0.2 mg/dL (0.15-1.2); Total Protein 7.5 g/dL (6.6-8.7)
[2021-07-02 19:42] LABS: Potassium 2.9 mmol/L (3.5-5.1)
[2021-07-02 20:19] VITALS: PULSE 101; RESP 18; O2SAT 96
[2021-07-02 20:30] VITALS: BP 157/108; PULSE 97; O2SAT 95
[2021-07-02 20:45] VITALS: BP 184/105; PULSE 120; O2SAT 91
[2021-07-02] MEDS: potassium chloride ER 20 mEq Tablet PO (20:56)
== END 2021-07-02 21:11 | disposition home or self-care (01) ==
PROVIDERS: Emergency Provider Physician Assistant
DX: J45.901 Unspecified asthma with (acute) exacerbation (principal); E87.6 Hypokalemia; F17.200 Nicotine dependence, unspecified, uncomplicated
CPT/HCPCS: 71045; 80053; 85025; 93005; 94640; 96365; 96375; 99284; J2930; J3475; J7040

== ENCOUNTER 2021-08-13 06:54 | Emergency (ER) | payer MEDICAID, SELFPAY ==
[2021-08-13 07:07] VITALS: BP 167/91; PULSE 84; RESP 18; TEMP 37.3; O2SAT 95; BMI 41.5
--- NOTE | 2021-08-13 07:16 | ED_ITS ---
HPI - URI/Sore Throat General: Chief Complaint: Upper Respiratory Infection Stated Complaint: Cough, chest and head pain Time Seen by Provider: 08/13/21 07:13 Source: patient Mode of arrival: ambulatory Limitations: no limitations History of Present Illness: 45-year-old female presents emergency room with complaints of nonproductive cough congestion and mild headache. She denies any diarrhea has not been vaccinated for COVID nor she previously had COVID. She has a low-grade fever on arrival here. Symptoms began over the last 2 days. Patient does not smoke has had problems with asthma in the past and has not been using albuterol regularly. MD elicited complaint: fever and cough Pertinent past history: asthma Onset (ago): day(s) (2) Consistency: constant Severity: mild Associated symptoms: Reports congestion, cough, fever(s), headache(s), nasal congestion and stiffness; Deny abdominal pain, change in voice, chills, chest pain, diarrhea, epistaxis, ear or mastoid pain, myalgias, nausea, rash, rhinorrhea, short of breath, sinus pain, sore throat or vomiting Treatments prior to arrival: none Review of Systems Const: Reports: fever(s) and fatigue; Denies: chills or malaise ENMT: Reports: nasal congestion; Denies: throat pain, ear or mastoid pain, epistaxis or sinus pain Card: Denies: chest pain Resp: Reports: non-productive cough and wheezing; Denies: dyspnea or productive cough GI: Denies: abdominal pain, nausea, vomiting or diarrhea : Denies: flank pain, difficulty voiding, dysuria, urinary frequency or urinary urgency Skin/Breast: Denies: rash or pruritus Neuro: Reports: headache(s) PFS ED PFSH: Medical History (Updated 08/13/21 @ 07:30 by Chad Lujan DO) Asthma FHx: cholecystectomy Surgical History H/O tubal ligation History of appendectomy Social History Smoking and tobacco status: current every day smoker (1/2 pack a day ) Female Reproductive History: Date of last menstrual period: 06/30/20 Physical Exam Const: COMMON NORMALS: no acute distress GENERAL APPEARANCE: cooperative and comfortable ORIENTATION/CONSCIOUSNESS: Yes awake, Yes oriented to person, Yes oriented to place and Yes oriented to time HENMT: COMMON NORMALS: normocephalic, atraumatic and hearing grossly normal bilaterally HEAD & SCALP: normocephalic and atraumatic Neck/C-Spine: COMMON NORMALS: no JVD Resp: COMMON NORMALS: normal respiratory effort, No retractions and No use of accessory muscles AUSCULTATION: wheezes Cardio: COMMON NORMALS: no JVD, regular rate, regular rhythm and No murmurs present (Cardio) RATE: regular rate RHYTHM: regular rhythm GI: COMMON NORMALS: Soft to palpation and No hepatosplenomegaly present AUSCULTATION: Yes normoactive bowel sounds PALPATION: Yes Soft to palpation, No Tenderness to palpation present (GI), No Guarding due to palpation present (GI) and Yes No hepatosplenomegaly present Extremity: COMMON NORMALS: normal to inspection, capillary refill normal, no clubbing, cyanosis or edema, no calf tenderness and no pedal edema Neuro: SENSORIUM/ORIENTATION: Yes oriented to person, Yes oriented to place and Yes oriented to time Skin: COMMON NORMALS: no rashes or lesions noted GENERAL SKIN EXAM: no rashes or lesions noted Course Vital Signs: Vital signs: Vital Signs Temperature 99.2 F 08/13/21 07:07 Pulse Rate 84 08/13/21 07:07 Respiratory Rate 18 08/13/21 07:07 Blood Pressure 167/91 08/13/21 07:07 Pulse Oximetry 95 08/13/21 07:07 MDM - URI/Sore Throat Medical Decision Making Suspect patient may have COVID. Very mild wheeze we will go ahead and start her on prednisone and refill her albuterol. COVID swab done prior to discharge will call with results when available Medical Records I reviewed the patient's medical records. Lab Data I reviewed the patient's lab results. Discharge Plan Discharge Patient Disposition: Home Clinical Impression: Bronchitis Condition: Stable Prescriptions: New albuterol sulfate 90 mcg/actuation HFA aerosol inhaler 2 inh INHALATION Q4H PRN (Reason: shortness of breath or wheezing) Qty: 18 0RF Medrol (Gonzalo) 4 mg tablets,dose pack See Rx Instructions .ROUTE .COMPLEX Qty: 21 0RF Rx Instructions: orally per package directions albuterol sulfate 2.5 mg /3 mL (0.083 %) solution for nebulization 2.5 mg inhalation Q6H PRN (Reason: shortness of breath or wheezing) Qty: 90 0RF Discontinued albuterol sulfate [Ventolin HFA] 90 mcg/actuation HFA aerosol inhaler 2 inh inhalation Q4H Qty: 8.5 0RF albuterol sulfate [ProAir HFA] 90 mcg/actuation HFA aerosol inhaler 2 inh inhalation Q6H PRN (Reason: shortness of breath or wheezing) Qty: 8.5 2RF Rx Instructions: prn shortness of breath or wheezing albuterol sulfate 5 mg/mL solution for nebulization 2.5 mg inhalation Q4H PRN (Reason: shortness of breath or wheezing) Qty: 25 2RF albuterol sulfate 2.5 mg /3 mL (0.083 %) solution for nebulization 2.5 mg INHALATION Q4H PRN (Reason: shortness of breath or wheezing) Qty: 90 0RF albuterol sulfate 2.5 mg /3 mL (0.083 %) solution for nebulization 2.5 mg INHALATION Q4H PRN (Reason: shortness of breath or wheezing) Qty: 90 0RF No Action meloxicam 15 mg tablet 15 mg PO DAILY Qty: 60 0RF Rx Instructions: take 1 tablet daily aspirin 325 mg Tablet 325 mg PO PRN PRN (Reason: Pain) 0RF Tessalon Perles 100 mg capsule 100 mg PO TID PRN (Reason: cough) Qty: 20 0RF diclofenac sodium 50 mg tablet,delayed release (DR/EC) 50 mg PO Q12H PRN (Reason: pain) Qty: 20 0RF Discharge Orders: Discharge ED (Routine); Ordered 08/13/21 Ordered By: Chad Lujan Discharge Diet: Usual diet Discharge Activity: Increase activity as tolerated Patient Instructions: Opioid Safety Coding Level of Care Code ED [employer] for Jeremy Fwd Exam Comprehensive
== END 2021-08-13 07:37 | disposition home or self-care (01) ==
PROVIDERS: Emergency Provider Family Medicine
DX: J40 Bronchitis, not specified as acute or chronic (principal); F17.210 Nicotine dependence, cigarettes, uncomplicated
CPT/HCPCS: 99284

== ENCOUNTER 2021-11-08 09:34 | Outpatient (CLI) | payer MEDICAID, SELFPAY ==
[2021-11-08 10:25] LABS: Basophils # 0.1 10^3/uL (0.0-0.1); Eosinophils # 0.3 10^3/uL (0.0-0.8); Eosinophils % 3.8 %; Hematocrit 46.2 % (37.0-47.0); Hemoglobin 15.5 g/dL (11.5-15.3); Lymphocytes # 2.1 10^3/uL (0.8-4.8); Lymphocytes % 29.2 %; Mean Corpuscular HGB Conc 33.5 g/dL (30.0-36.0); Mean Corpuscular Hemoglobin 32.2 pg (28.0-34.0); Mean Corpuscular Volume 95.9 fl (81-99); Mean Platelet Volume 9.9 fL (7.4-10.4); Monocytes # 0.4 10^3/uL (0.2-0.9); Monocytes % 6.3 %; Neutrophils # 4.18 10^3/uL (1.8-7.7); Neutrophils % 59.4 %; Nucleated Red Blood Cells % 0 %; Platelet Count 352 10^3/cmm (130-400); Red Blood Count 4.82 10^6/uL (4.1-5.3); Red Cell Distribution Width 12.7 % (12.1-15.1)
[2021-11-08 11:05] LABS: Estmated Average Glucose 108; Hemoglobin A1C 5.4 % (4.0-6.0)
[2021-11-08 11:14] LABS: Alanine Aminotransferase 22 U/L (0-33); Albumin Level 4.3 g/dL (3.5-5.2); Alkaline Phosphatase 94 U/L (35-105); Anion Gap 13.1 (5-19); Aspartate Amino Transferase 22 U/L (0-32); Blood Urea Nitrogen 15 mg/dL (6-20); Calcium 8.6 mg/dL (8.5-10.5); Carbon Dioxide 27 mmol/L (22-29); Chloride 102 mmol/L (98-107); Glomerular Filtration Rate 90.5 mL/min (90-130); Glucose 101 mg/dL (65-115); Osmolality Calculated 287 mOsm/kg (285-295); Potassium 4.1 mmol/L (3.5-5.1); Sodium 138 mmol/L (136-145); Thyroid Stimulating Hormone 1.57 uIU/mL (0.27-4.20); Total Bilirubin 0.5 mg/dL (0.15-1.2); Total Protein 7.3 g/dL (6.6-8.7)
== END 2021-11-08 09:35 | disposition home or self-care (01) ==
LOC: LAB 09:41
PROVIDERS: PCP Family Medicine Adult Medicine; Visit Provider Family Medicine Adult Medicine
DX: E66.01 Morbid (severe) obesity due to excess calories (principal); Z68.41 Body mass index [BMI] 40.0-44.9, adult; I10 Essential (primary) hypertension
CPT/HCPCS: 36415; 80053; 83036; 84443; 85025

== ENCOUNTER 2021-12-08 08:57 | Outpatient (CLI) | payer OTHER, MEDICAID, SELFPAY | END 2021-12-08 08:58 | disposition home or self-care (01) | LOC: RT 08:58 | PROVIDERS: PCP Family Medicine Adult Medicine; Visit Provider Family Medicine Adult Medicine | DX: J44.9 Chronic obstructive pulmonary disease, unspecified (principal); F17.210 Nicotine dependence, cigarettes, uncomplicated | CPT/HCPCS: 94060; J7611; J7613 ==

== ENCOUNTER 2022-01-20 08:27 | Outpatient (CLI) | payer MEDICAID, SELFPAY ==
--- NOTE | 2022-01-20 08:36 | XRR_ITS ---
PROCEDURE INFORMATION: Exam: XR Bilateral Hips Exam date and time: 01/20/2022 8:41 AM Age: 46 years old Clinical indication: Hip pain; Bilateral; Additional info: Bilateral hip pain, increasing bilateral hip pain over the last year with much more severe pain TECHNIQUE: Imaging protocol: Radiologic exam of the bilateral hips. Views: 2 views of hips with pelvis when performed. COMPARISON: CR XR hip LT 2-3V wo/w pel* [id number] 09/21/2020 9:41 AM FINDINGS: Bones/joints: Unremarkable. No acute fracture. Soft tissues: Unremarkable. XR/XR hip BI 3-4V wo/w pel [id number] IMPRESSION: No acute findings.
== END 2022-01-20 08:28 | disposition home or self-care (01) ==
LOC: RAD 08:29
PROVIDERS: PCP Family Medicine Adult Medicine; Visit Provider Family Medicine Adult Medicine
DX: G89.29 Other chronic pain (principal); M25.551 Pain in right hip; M25.552 Pain in left hip
CPT/HCPCS: 73522

== ENCOUNTER 2022-01-31 13:10 | Outpatient (CLI) | payer MEDICAID, SELFPAY ==
--- NOTE | 2022-01-31 13:18 | MM_ITS ---
WS: [id number] Bilateral screening 3D tomosynthesis digital mammogram, 01/31/2022 Clinical Data: annual Comparison: 11/24/2020, 11/08/2020 Findings: The breast parenchymal pattern shows heterogeneous density No spiculated masses or clustered calcific ations are seen. There are no secondary signs of carcinoma. MM/[place] [id number] Impression: 1. Negative bilateral mammogram unchanged. 2. Recommend annual screening mammograms. BIRADS: 2-Benign FOLLOW UP: 1 Year Follow-up The CAD receiving checker was used.
== END 2022-01-31 13:11 | disposition home or self-care (01) ==
LOC: RAD 13:10
PROVIDERS: PCP Family Medicine Adult Medicine; Visit Provider Family Medicine Adult Medicine
DX: Z12.31 Encounter for screening mammogram for malignant neoplasm of breast (principal)
CPT/HCPCS: 77063; 77067

== ENCOUNTER 2022-03-12 19:56 | Observation (INO) | payer MEDICAID, SELFPAY ==
[2022-03-12 20:05] VITALS: BP 124/70; PULSE 106; RESP 18; TEMP 36.3; O2SAT 98; BMI 41.1
--- NOTE | 2022-03-12 21:18 | XRR_ITS ---
PROCEDURE INFORMATION: Exam: XR Chest Exam date and time: 03/12/2022 9:24 PM Age: 46 years old Clinical indication: Cough; Patient HX: Started new medication. PT states she is acting weird and has high BP; Additional info: Cough, dehydration TECHNIQUE: Imaging protocol: Radiologic exam of the chest. Views: 1 view. COMPARISON: CR XR chest 1V portable [id number] 07/02/2021 7:04 PM FINDINGS: Lungs: Unremarkable. No consolidation. Pleural spaces: Unremarkable. No pleural effusion. No pneumothorax. Heart/Mediastinum: Unremarkable. No cardiomegaly. Bones/joints: Unremarkable. XR/XR chest 1V portable [id number] IMPRESSION: No acute findings.
[2022-03-12 21:30] VITALS: BP 110/75; PULSE 103; RESP 18; O2SAT 98
[2022-03-12] MEDS: sodium chloride 0.9% 1,000 ML 999 ML IV (22:15)
[2022-03-12 22:22] LABS: Basophils # 0.1 10^3/uL (0.0-0.1); Basophils % 0.4 %; Eosinophils # 0.1 10^3/uL (0.0-0.8); Eosinophils % 0.4 %; Lymphocytes % 11.2 %; Mean Corpuscular HGB Conc 34.2 g/dL (30.0-36.0); Mean Corpuscular Hemoglobin 31.6 pg (28.0-34.0); Mean Corpuscular Volume 92.2 fl (81-99); Mean Platelet Volume 10.7 fL (7.4-10.4); Monocytes % 5.6 %; Neutrophils # 14.37 10^3/uL (1.8-7.7); Neutrophils % 82.1 %; Nucleated Red Blood Cells % 0 %; Platelet Count 413 10^3/cmm (130-400); Red Blood Count 4.12 10^6/uL (4.1-5.3); Red Cell Distribution Width 12.6 % (12.1-15.1); White Blood Count 17.5 10^3/uL (4.0-10.0)
--- NOTE | 2022-03-12 22:32 | ED_ITS ---
HPI - Arrhythmia/Palpitations General: Chief Complaint: Arrhythmia/Palpitations Stated Complaint: Blood Pressure Low\Heart Rate Irregular Time Seen by Provider: 03/12/22 21:05 Source: patient History of Present Illness: 46-year-old female who says that she has been sick with gastroenteritis symptoms for around 5 days or so. Repetitive episodes of vomiting and diarrhea. She believes she is dehydrated. She notes that her monitor at home told her that her heart rate was fast and irregular, so she decided to come to the hospital. She is experiencing intermittent belly pain, but no constant pain. She denies any fever. She denies chest discomfort. She also notes that her blood pressure is usually quite high, and it was registering lower today. Numbers were in the 100s over 70s. MD complaint: palpitations Onset (ago): hour(s) Duration: constant Associated symptoms: Reports muscle cramps, nausea, short of breath and vomiting; Deny cough or diaphoresis Review of Systems Const: Denies: diaphoresis ENMT: Denies: throat pain Card: Reports: palpitations; Denies: chest pain Resp: Reports: dyspnea; Denies: non-productive cough GI: Reports: abdominal pain, nausea and vomiting Musc: Reports: muscle cramps PFSH ED PFSH: Medical History Anxiety about health Asthma Chronic hip pain, bilateral FHx: cholecystectomy Hypertension Knee pain Morbid obesity with BMI of 40.0-44.9, adult Osteoarthritis of both sacroiliac joints Participant in health and wellness plan Sciatic leg pain Smoker Surgical History H/O tubal ligation History of appendectomy Social History Smoking and tobacco status: heavy tobacco smoker Quit status (tobacco): has tried quititng Smoking risk assessment/counseling performed?: Yes Tobacco counseling given: provider counseling Alcohol intake: never Adopted: No Lives independently: Yes Household members: spouse Marital status: Number of children: 2 Number of grandchildren: 1 Highest education level completed: Some College, No Degree Female Reproductive History: Date of last menstrual period: 06/30/20 Spontaneous abortions: No Course Vital Signs: Vital signs: Vital Signs Temperature 97.3 F L 03/12/22 20:05 Pulse Rate 103 H 03/12/22 21:30 Respiratory Rate 18 03/12/22 21:30 Blood Pressure 110/75 03/12/22 21:30 Pulse Oximetry 98 03/12/22 21:30 Oxygen Delivery Me thod 03/12/22 21:30 MDM - Arrhythmia/Palpitations Medical Decision Making Patient is tachycardic with a mildly low blood pressure. White blood cell count is 17.5 with platelet count of 413. Interestingly, her BUN is 45 with a creatinine of 4.3. This lady had a creatinine of 0.7 in November. TSH is normal. Lactate is 0.9. Her bicarbonate level was 17. CT is completed showing prominent fluid in the small bowel and ascending colon suggestive of enterocolitis. She is given Cipro and Flagyl for coverage. She is also received 2 L bolus in the ER. She remains tachycardic, but blood pressure is improved. She will be admitted. Hospitalist is aware and will see the patient. Lab Data 03/12/22 22:16 03/12/22 22:16 Radiology Impressions Chest X-Ray 03/12/22 21:18 IMPRESSION: No acute findings. Abdomen/Pelvis CT 03/12/22 22:49 IMPRESSION: 1. Prominent fluid in small bowel and ascending colon suggestive of an enterocolitis. 2. Right ovary 2.4 cm cyst, likely follicular. 3. Small amount nonspecific fluid in the uterus, likely related to menstrual status. 4. Hepatic steatosis. 5. Cholecystectomy. Laboratory Results WBC 17.5 10^3/uL (4.0-10.0) H 03/12/22 22:16 RBC 4.12 10^6/uL (4.1-5.3) 03/12/22 22:16 Hgb 13.0 g/dL (11.5-15.3) 03/12/22 22:16 Hct 38.0 % (37.0-47.0) 03/12/22 22:16 MCV 92.2 fl (81-99) 03/12/22 22:16 MCH 31.6 pg (28.0-34.0) 03/12/22 22:16 MCHC 34.2 g/dL (30.0-36.0) 03/12/22 22:16 RDW 12.6 % (12.1-15.1) 03/12/22 22:16 Plt Count 413 10^3/cmm (130-400) H 03/12/22 22:16 MPV 10.7 fL (7.4-10.4) H 03/12/22 22:16 Neut % (Auto) 82.1 % 03/12/22 22:16 Lymph % (Auto) 11.2 % 03/12/22 22:16 [place] % (Auto) 5.6 % 03/12/22 22:16 Eos % (Auto) 0.4 % 03/12/22 22:16 Baso % (Auto) 0.4 % 03/12/22 22:16 Neut # (Auto) 14.37 10^3/uL (1.8-7.7) H 03/12/22 22:16 Lymph # (Auto) 2.0 10^3/uL (0.8-4.8) 03/12/22 22:16 [place] # (Auto) 1.0 10^3/uL (0.2-0.9) H 03/12/22 22:16 Eos # (Auto) 0.1 10^3/uL (0.0-0.8) 03/12/22 22:16 Baso # (Auto) 0.1 10^3/uL (0.0-0.1) 03/12/22 22:16 Nucleated RBC % (auto) 0 % 03/12/22 22:16 Nucleated RBCs # 0.0 /100WBC 03/12/22 22:16 Sodium 133 mmol/L (136-145) L 03/12/22 22:16 Potassium 3.2 mmol/L (3.5-5.1) L 03/12/22 22:16 Chloride 94 mmol/L (98-107) L 03/12/22 22:16 Carbon Dioxide 17 mmol/L (22-29) L 03/12/22 22:16 Anion Gap 25.2 (5-19) H 03/12/22 22:16 BUN 45 mg/dL (6-20) H 03/12/22 22:16 Creatinine 4.3 mg/dL (0.5-0.9) H 03/12/22 22:16 GFR Calculation 11.1 mL/min (90-130) L 03/12/22 22:16 Glucose 108 mg/dL (65-115) 03/12/22 22:16 Calculated Osmolality 288 mOsm/kg (285-295) 03/12/22 22:16 Lactate 0.9 mmol/L (0.5-2.2) 03/12/22 22:16 Calcium 9.5 mg/dL (8.5-10.5) 03/12/22 22:16 Total Bilirubin 0.2 mg/dL (0.15-1.2) 03/12/22 22:16 AST 58 U/L (0-32) H 03/12/22 22:16 ALT 38 U/L (0-33) H 03/12/22 22:16 Alkaline Phosphatase 97 U/L (35-105) 03/12/22 22:16 Total Protein 7.8 g/dL (6.6-8.7) 03/12/22 22:16 Albumin 4.4 g/dL (3.5-5.2) 03/12/22 22:16 Globulin 3.4 g/dL (1.3-4.6) 03/12/22 22:16 TSH 0.95 uIU/mL (0.27-4.20) 03/12/22 22:16 Discharge Plan Discharge Patient Disposition: Admitted As Inpatient Clinical Impression: Acute renal failure, Enterocolitis Condition: Fair Prescriptions: No Action amlodipine 5 mg tablet 5 mg PO DAILY Qty: 30 5RF meloxicam 15 mg tablet 15 mg PO DAILY Qty: 30 3RF Rx Instructions: take 1 tablet daily metoprolol tartrate 25 mg tablet 25 mg PO BID Qty: 60 5RF lisinopril 20 mg tablet 20 mg PO DAILY Qty: 30 5RF Atrovent HFA 17 mcg/actuation HFA aerosol inhaler 2 puff inhalation TID PRN (Reason: shortness of breath or wheezing) Qty: 12.9 5RF albuterol sulfate 2.5 mg /3 mL (0.083 %) solution for nebulization 2.5 mg inhalation Q6H PRN (Reason: shortness of breath or wheezing) Qty: 90 0RF albuterol sulfate 90 mcg/actuation HFA aerosol inhaler 2 inh INHALATION Q4H PRN (Reason: shortness of breath or wheezing) Qty: 18 5RF montelukast [Singulair] 10 mg tablet 10 mg PO DAILY Qty: 30 5RF aspirin 81 mg tablet,delayed release (DR/EC) 81 mg PO DAILY Qty: 90 3RF Referrals: Vince Hearn MD [Primary Care Provider] - Coding Level of Care Code ED Sr. Director for [facility]
[2022-03-12 22:45] LABS: Lactate (Lactic Acid level) 0.9 mmol/L (0.5-2.2)
--- NOTE | 2022-03-12 22:49 | CTR_ITS ---
PROCEDURE INFORMATION: Exam: CT Abdomen And Pelvis With Contrast Exam date and time: 03/12/2022 11:03 PM Age: 46 years old Clinical indication: Other: Diarrhea; Prior surgery; Surgery date: 6+ months; Surgery type: Cholecystectomy, appendectomy, tubal; Additional info: Abd pain, leukocytosis, vomiting TECHNIQUE: Imaging protocol: Computed tomography of the abdomen and pelvis with contrast. Radiation optimization: All CT scans at this facility use at least one of these dose optimization techniques: automated exposure control; mA and/or kV adjustment per patient size (includes targeted exams where dose is matched to clinical indication); or iterative reconstruction. Contrast material: OMNI 350; Contrast volume: 100 ml; Contrast route: INTRAVENOUS (IV); Other protocol: This patient has received 0 known CTs and 0 known cardiac nuclear medicine studies in the 12 months prior to the current study. COMPARISON: CR XR hip BI 3-4V wo/w pel [id number] 01/20/2022 8:41 AM RADIATION DOSE METRICS: Total DLP (mGy-cm): 990.83 FINDINGS: Liver: Hepatic steatosis. Gallbladder and bile ducts: Cholecystectomy. Pancreas: Normal. No ductal dilation. Spleen: Normal. No splenomegaly. Adrenal glands: Normal. No mass. Kidneys and ureters: Normal. No hydronephrosis. Stomach and bowel: Prominent fluid in small bowel and ascending colon suggestive of an enterocolitis. Appendix: No evidence of appendicitis. Intraperitoneal space: Unremarkable. No free air. No significant fluid collection. Vasculature: Unremarkable. No abdominal aortic aneurysm. Lymph nodes: Unremarkable. No enlarged lymph nodes. Urinary bladder: Unremarkable as visualized. Reproductive: Right ovary 2.4 cm cyst, likely follicular. Small amount of nonspecific fluid in the uterus, likely related to menstrual status. Bones/joints: Unremarkable. No acute fracture. Soft tissues: Unremarkable. CT/CT abdomen pelvis w con* [id number] IMPRESSION: 1. Prominent fluid in small bowel and ascending colon suggestive of an enterocolitis. 2. Right ovary 2.4 cm cyst, likely follicular. 3. Small amount nonspecific fluid in the uterus, likely related to menstrual status. 4. Hepatic steatosis. 5. Cholecystectomy.
[2022-03-12] MEDS: iohexol 350 mg/mL 500 mL Btl (per mL) IV (22:53)
[2022-03-12 22:56] LABS: Alanine Aminotransferase 38 U/L (0-33); Albumin Level 4.4 g/dL (3.5-5.2); Alkaline Phosphatase 97 U/L (35-105); Anion Gap 25.2 (5-19); Aspartate Amino Transferase 58 U/L (0-32); Blood Urea Nitrogen 45 mg/dL (6-20); Calcium 9.5 mg/dL (8.5-10.5); Carbon Dioxide 17 mmol/L (22-29); Chloride 94 mmol/L (98-107); Globulin 3.4 g/dL (1.3-4.6); Glomerular Filtration Rate 11.1 mL/min (90-130); Glucose 108 mg/dL (65-115); Osmolality Calculated 288 mOsm/kg (285-295); Potassium 3.2 mmol/L (3.5-5.1); Sodium 133 mmol/L (136-145); Thyroid Stimulating Hormone 0.95 uIU/mL (0.27-4.20); Total Bilirubin 0.2 mg/dL (0.15-1.2); Total Protein 7.8 g/dL (6.6-8.7)
[2022-03-13] VITALS (7 sets, daily range): BP systolic 89–133; BP diastolic 60–79; PULSE 77–112; RESP 14–22; TEMP 36.5–37.1; O2SAT 96–100; BMI 39.9
--- NOTE | 2022-03-13 00:02 | PM.HP ---
Providers/Chief Complaint Admitting Physician: Pasquale Alvarado MD Primary Care Provider: Vince Hearn MD Chief Complaint: Blood Pressure Low\Heart Rate Irregular History of Present Illness Anita Rich is a 46 year old female with a past medical history significant for asthma, hypertension, and sciatica who presents to the emergency department with nausea, vomiting, abdominal pains/cramps, and diarrhea x4 to 5 days. She states that symptoms actually began as neck pain and then progressed to flank pain followed by the GI symptoms. She describes her abdominal pain is intermittent in all 4 quadrants. She endorses associated symptoms of shortness of breath, palpitations, muscle cramps, and diffuse weakness. Patient denies chest pain, fevers, or chills. She denies alleviating or aggravating factors. Patient does state that she continues to smoke. She states she has been too sick to smoke much today only having 1 to 2 cigarettes. She does have a desire to quit smoking. She has not previously tried to quit before. She thinks the biggest problem she will have is with the routine habits throughout her day reminding her to have a cigarette. Patient declined nicotine patch. Review of Systems Narrative: A complete review of systems was obtained and is negative except as stated in HPI. Medications/Allergies Home Medications Medication Instructions Recorded Confirmed Last Taken Type aspirin 81 mg tablet,delayed 81 mg PO DAILY circulation #90 tabs 11/08/21 02/07/22 Unknown Rx release albuterol sulfate 2.5 mg/3 mL 2.5 mg (3 mL) inhalation Q6H PRN 02/07/22 02/07/22 Unknown Rx (0.083 %) solution for nebulization shortness of breath or wheezing #90 mL albuterol sulfate 90 mcg/actuation 2 inh inhalation Q4H PRN shortness 02/07/22 02/07/22 Unknown Rx aerosol inhaler of breath or wheezing #18 grams amlodipine 5 mg tablet 5 mg PO DAILY #30 tabs 02/07/22 02/07/22 Unknown Rx ipratropium bromide 17 2 puff inhalation TID PRN 02/07/22 02/07/22 Unknown Rx mcg/actuation HFA aerosol inhaler shortness of breath or wheezing (Atrovent HFA) #12.9 grams lisinopril 20 mg tablet 20 mg PO DAILY high blood pressure 01/03/23 01/03/23 Unknown Rx #30 tabs meloxicam 15 mg tablet 15 mg PO DAILY arthritis #30 tabs 02/07/22 02/07/22 Unknown Rx metoprolol tartrate 25 mg tablet 25 mg PO BID high blood pressure 02/07/22 02/07/22 Unknown Rx #60 tabs montelukast 10 mg tablet 10 mg PO DAILY #30 tabs 02/07/22 02/07/22 Unknown Rx (Singulair) Allergies Allergy/AdvReac Type Severity Reaction Status Date / Time No Known Allergies Allergy Verified 02/07/22 08:21 PFSH Acute PFSH: Medical History Anxiety about health Asthma Chronic hip pain, bilateral FHx: cholecystectomy Hypertension Knee pain Morbid obesity with BMI of 40.0-44.9, adult Osteoarthritis of both sacroiliac joints Participant in health and wellness plan Sciatic leg pain Smoker Surgical History H/O tubal ligation History of appendectomy Family History Mother Renal cell cancer Pancreatic cancer Asthma Social History Smoking and tobacco status: heavy tobacco smoker Quit status (tobacco): has tried quititng Smoking risk assessment/counseling performed?: Yes Tobacco counseling given: provider counseling Alcohol intake: never Adopted: No Lives independently: Yes Household members: spouse Marital status: Number of children: 2 Number of grandchildren: 1 Highest education level completed: Some College, No Degree Female Reproductive History: Date of last menstrual period: 06/30/20 Spontaneous abortions: No Vitals/I&O/Wt Last Vital Signs Temp 97.3 F L 03/12/22 20:05 Pulse 103 H 03/12/22 21:30 Resp 18 03/12/22 21:30 BP 110/75 03/12/22 21:30 Pulse Ox 98 03/12/22 21:30 O2 Del Method 03/12/22 21:30 Weight last 48 hrs Weight 108.862 kg Physical Exam Narrative: General: Patient is awake. Appears fatigued. Pleasant. Head: Normocephalic. Atraumatic. EOM intact. Dry mucous membranes. Neck: No JVD. Cardiovascular: RRR. No gallops. No murmurs. No peripheral edema. Lungs: Clear to auscultation, no use of accessory muscles, no crackles or wheezes. Skin: No jaundice. No rashes. Abdomen: Normal bowel sounds, abdomen soft and mildly tender in all 4 quadrants. Genito Urinary: Genital exam not performed since complaints not related. Rectal: Rectal exam not performed since no symptoms indicated blood loss. Extremities: No cyanosis or clubbing. Musculoskeletal: No swollen or erythematous joints. Neurological: Moves all 4 extremities. No myoclonus. Data 03/12/22 22:16 03/12/22 22:16 A&P Assessment and plan (1) Acute renal failure: Suspect secondary to GI losses complicated by medication Likely prerenal versus ATN depending on timeframe Hold lisinopril and Mobic Avoid nephrotoxins Strict I's and O's Renally dose medications No hydronephrosis mentioned on CT scan Start IV fluids Trend renal function (2) Enterocolitis: Status post Flagyl and ciprofloxacin in the ED Stool culture IV fluids Antiemetics Supportive care (3) Thrombocytosis: Likely reactive Continue to monitor (4) Hypokalemia: Gently replace potassium Continue to monitor Telemetry (5) Metabolic acidosis: HAGMA secondary to CHARLEY Treat underlying renal dysfunction (6) Transaminitis: Likely secondary to infection Continue to monitor (7) Hypertension: Continue metoprolol Continue amlodipine Hold lisinopril due to CHARLEY (8) Asthma: Albuterol nebs as needed Qualifiers: Asthma severity: moderate Asthma persistence: persistent Asthma complication type: with acute exacerbation Qualified Code(s): J45.41 - Moderate persistent asthma with (acute) exacerbation (9) Smoker: Smoking cessation discussed for 4 minutes, declined nicotine patch Plan DVT prophylaxis: Heparin CODE STATUS: Full code Attestations Medical Necessity Statement*: Patient presents with GI symptoms found to have acute kidney injury secondary to enterocolitis medications with expected hospitalization to cross 2 midnights for treatment. Coding Level of Care Code Acute Code for [facility] Diagnoses Acute renal failure N17.9 Enterocolitis K52.9 Thrombocytosis D75.839 Hypokalemia E87.6 Metabolic acidosis E87.20 Transaminitis R74.01 Hypertension I10 Asthma J45.41 Asthma severity: moderate Asthma persistence: persistent Asthma complication type: with acute exacerbation Smoker F17.200
[2022-03-13] MEDS: sodium chloride 0.9% 1,000 ML 999 ML IV (00:48)
[2022-03-13] MEDS: metroNIDAZOLE IV 500 MG/100 ML PREMIX 100 MG IV (00:48)
--- NOTE | 2022-03-13 01:24 | PC.NURSE ---
Report taken from Isabella in the ER. Patient arrived on floor approximately 0115 via stretcher. Transferred to bed without assistance.
[2022-03-13 02:02] LABS: Add Urine Microscopic? YES; Bilirubin Urine Neg (Negative); Blood Urine 3+ (Negative); Glucose Urine UA Norm (Normal); Ketones Urine 1+ (Negative); Leukocyte Esterase Urine Trace (Negative); Nitrate Urine Negative (Negative); Protein Urine 1+ (Negative); Specific Gravity, Urine 1.025 (1.005-1.030); Urine Appearance SL Hazy (CLEAR); Urine Color Yellow (Yellow); Urobilinogen Urine Neg (Negative); pH Urine 5 (5-7)
[2022-03-13 02:05] LABS: Add Urine Culture? No; Bacteria Urine 1+ /hpf; Mucus Urine 1+ /hpf; Squamous Epithelial Cell Urine 25-40 /hpf (0-5)
--- NOTE | 2022-03-13 03:06 | PC.NURSE ---
Unable to administer IV medications at this time due to not having patent IV. Previous IV in patient's right hand did not flush and was causing pain; IV removed with catheter tip intact. This nurse attempted a new IV twice, and another nurse attempted to get an IV. Ultrasound guided IV will be attempted by other nursing staff.
[2022-03-13 04:06] LABS: Basophils # 0.1 10^3/uL (0.0-0.1); Basophils % 0.7 %; Eosinophils # 0.2 10^3/uL (0.0-0.8); Eosinophils % 1.2 %; Hematocrit 34.8 % (37.0-47.0); Hemoglobin 11.6 g/dL (11.5-15.3); Lymphocytes # 3.3 10^3/uL (0.8-4.8); Lymphocytes % 26.9 %; Mean Corpuscular HGB Conc 33.3 g/dL (30.0-36.0); Mean Corpuscular Hemoglobin 31.6 pg (28.0-34.0); Mean Corpuscular Volume 94.8 fl (81-99); Mean Platelet Volume 10.9 fL (7.4-10.4); Monocytes # 1.1 10^3/uL (0.2-0.9); Monocytes % 8.7 %; Neutrophils # 7.64 10^3/uL (1.8-7.7); Neutrophils % 62.3 %; Nucleated Red Blood Cells % 0 %; Platelet Count 340 10^3/cmm (130-400); Red Blood Count 3.67 10^6/uL (4.1-5.3); Red Cell Distribution Width 12.7 % (12.1-15.1); White Blood Count 12.3 10^3/uL (4.0-10.0)
--- NOTE | 2022-03-13 04:25 | PC.NURSE ---
22 gauge IV placed in right AC via ultrasound.
[2022-03-13 04:28] LABS: Alanine Aminotransferase 33 U/L (0-33); Albumin Level 3.9 g/dL (3.5-5.2); Alkaline Phosphatase 80 U/L (35-105); Anion Gap 17.9 (5-19); Aspartate Amino Transferase 54 U/L (0-32); Blood Urea Nitrogen 34 mg/dL (6-20); Calcium 8.1 mg/dL (8.5-10.5); Carbon Dioxide 18 mmol/L (22-29); Chloride 100 mmol/L (98-107); Globulin 2.9 g/dL (1.3-4.6); Glomerular Filtration Rate 16.9 mL/min (90-130); Glucose 106 mg/dL (65-115); Magnesium 1.6 mg/dL (1.7-2.3); Osmolality Calculated 284 mOsm/kg (285-295); Phosphorus 3.7 mg/dL (2.5-4.5); Sodium 133 mmol/L (136-145); Total Bilirubin 0.2 mg/dL (0.15-1.2); Total Protein 6.8 g/dL (6.6-8.7)
[2022-03-13] MEDS: heparin 5,000 unit/mL INJ 1 mL 5000 UNIT SUBCUT ×2 (04:30→12:31)
[2022-03-13] MEDS: acetaminophen 325 mg Tablet 650 MG PO (04:30)
[2022-03-13] MEDS: sodium chlor 0.9% + KCl 20 mEq 20 MEQ/1,000 ML BAG 200 MEQ IV ×2 (04:31→10:27)
[2022-03-13 04:45] LABS: Potassium 2.9 mmol/L (3.5-5.1)
--- NOTE | 2022-03-13 04:49 | PC.NURSE ---
Notified Dr Alvarado of potassium of 2.9 this morning and notified him of current fluids of NS with 20K running at 200m/hr. Dr Alvarado instructed to give 20 meq PO as well.
[2022-03-13] MEDS: potassium chloride ER 20 mEq Tablet PO (05:07)
--- NOTE | 2022-03-13 05:16 | PC.NURSE ---
Patient's ultrasound guided IV infiltrated and patient stated pain at site. Fluids stopped and Dr Alvarado was notified. Patient also stated that she refuses to get poked again unless they knock me out. Dr Alvarado was informed what the patient said, and stated she needs an IV though for renal failure. He also instructed nurse to administer oxycodone 5mg once.
[2022-03-13] MEDS: oxyCODONE-APAP 5-325 mg Tablet 1 TAB PO (05:56)
--- NOTE | 2022-03-13 06:03 | PC.NURSE ---
Dr Alvarado instructed nurse to explain to patient the need for IV due to renal failure. Patient stated, oh I know about my renal failure, and stated that she did not want another IV unless they were to knock me out and put it my jugular or something. Dr Alvarado was notified and he instructed nurse to make a note of patient refusing future IV attempts.
[2022-03-13] MEDS: montelukast sodium 10 mg Tablet PO (09:00)
[2022-03-13] MEDS: amlodipine 5 mg Tablet PO (09:01)
[2022-03-13] MEDS: metoprolol tartrate 25 mg Tablet PO ×2 (09:01→17:37)
[2022-03-13] MEDS: aspirin 81 mg EC Tablet PO (09:01)
--- NOTE | 2022-03-13 16:32 | PM.PN ---
Subjective Subjective: Today she is feeling slightly better. Diarrhea is subsiding. She is otherwise doing okay. No vomiting. Reports prior history of acute kidney injury accompanied by nausea from which she previously recovered. Vitals/I&O/Wt Last Vital Signs Temp 98.5 F 03/13/22 12:00 Pulse 77 03/13/22 12:00 Resp 18 03/13/22 12:00 BP 114/71 03/13/22 12:00 Pulse Ox 96 03/13/22 12:00 O2 Del Method 03/13/22 12:00 03/13/22 03/13/22 03/13/22 06:59 14:59 22:59 Intake Total 2580 / 2580 1360 / 1360 1000 / 2360 Balance 2580 / 2580 1360 / 1360 1000 / 2360 Weight last 48 hrs Weight 105.687 kg Weight 108.862 kg Physical Exam Narrative: Ambulating in the room. Const: COMMON NORMALS: patient oriented x3 and alert GENERAL APPEARANCE: cooperative NUTRITIONAL APPEARANCE: obese ORIENTATION/CONSCIOUSNESS: Yes awake HENMT: COMMON NORMALS: oropharynx normal Neck/C-Spine: COMMON NORMALS: no JVD Resp: COMMON NORMALS: normal respiratory effort and clear to auscultation bilaterally AUSCULTATION: clear to auscultation bilaterally Cardio: COMMON NORMALS: no JVD, regular rhythm, S1 normal heart sound present, S2 normal heart sound present and No murmurs present (Cardio) RHYTHM: regular rhythm HEART SOUNDS: S1 normal heart sound present and S2 normal heart sound present GI: COMMON NORMALS: Normal to inspection, nondistended, normoactive bowel sounds present, Soft to palpation and non-tender PALPATION: Yes Soft to palpation Extremity: COMMON NORMALS: no joint enlargement and no pedal edema Neuro: COMMON NORMALS: patient oriented x3 and moves all extremities SENSORIUM/ORIENTATION: Yes alert Skin: COMMON NORMALS: no rashes or lesions noted GENERAL SKIN EXAM: no rashes or lesions noted Data 03/13/22 03:33 03/13/22 03:33 A&P Assessment and plan (1) Acute renal failure: Admission note appreciated. Reviewed creatinine, improvement in CHARLEY so far with creatinine down to 3. Noted also hypokalemia 2.9. Received replacement. We will follow-up potassium. We will also give replacement magnesium due to low level 1.6. We will need to stop NSAID. Suspect secondary to GI losses complicated by medication Likely prerenal versus ATN depending on timeframe Hold lisinopril and Mobic Avoid nephrotoxins Strict I's and O's Renally dose medications No hydronephrosis mentioned on CT scan Start IV fluids Trend renal function (2) Enterocolitis: So far no further diarrhea. Added also C. difficile, but stool studies so far could not be collected. Collect if possible. Stool culture Continue IV fluids Antiemetics Supportive care (3) Thrombocytosis: Likely reactive Continue to monitor (4) Hypokalemia: As above Continue to monitor Telemetry (5) Metabolic acidosis: HAGMA secondary to CHARLEY Improving Treat underlying renal dysfunction (6) Transaminitis: Improving Likely secondary to infection Continue to monitor (7) Hypertension: Continue metoprolol Continue amlodipine Hold lisinopril due to CHARLEY (8) Asthma: Albuterol nebs as needed Qualifiers: Asthma complication type: with acute exacerbation Asthma persistence: persistent Asthma severity: moderate Qualified Code(s): J45.41 - Moderate persistent asthma with (acute) exacerbation (9) Smoker: Smoking cessation discussed for 4 minutes, declined nicotine patch Plan Right ovarian cyst: Incidentally noted on CT. Follow-up outpatient. Hepatic steatosis: Incidentally noted on CT, follow-up outpatient. DVT prophylaxis: Heparin CODE STATUS: Full code Attestations Medical Necessity Statement*: Continue admission for assessment management of enterocolitis, CHARLEY, alert abnormalities. Coding Level of Care Code 52697 Moderate MDM includes risk/complexity, reviewing previous or external records, reviewing test results and ordering lab/other test(s) Diagnoses Acute renal failure N17.9 Enterocolitis K52.9 Thrombocytosis D75.839 Hypokalemia E87.6 Metabolic acidosis E87.20 Transaminitis R74.01 Hypertension I10 Asthma J45.41 Asthma complication type: with acute exacerbation Asthma persistence: persistent Asthma severity: moderate Smoker F17.200
--- NOTE | 2022-03-13 20:16 | PC.NURSE ---
Patient left Against Medical Advise at 1999. Patient was advised of the risks of leaving without discharge from physician and verbalized understanding. Patient signed AMA form and walked off of unit.
== END 2022-03-13 20:00 | disposition left against medical advice (07) ==
LOC: ER 03-13 00:27 → MEDSURG 03-13 08:32
PROVIDERS: Admitting Provider Internal Medicine; Emergency Provider Emergency Medicine; PCP Family Medicine Adult Medicine; Visit Provider Internal Medicine
DX: N17.9 Acute kidney failure, unspecified (principal); K52.9 Noninfective gastroenteritis and colitis, unspecified; D75.839 Thrombocytosis, unspecified; E87.6 Hypokalemia; E87.20 Acidosis, unspecified; R74.01 Elevation of levels of liver transaminase levels; I10 Essential (primary) hypertension; J45.41 Moderate persistent asthma with (acute) exacerbation; F17.200 Nicotine dependence, unspecified, uncomplicated; Z79.82 Long term (current) use of aspirin; E66.01 Morbid (severe) obesity due to excess calories; Z68.41 Body mass index [BMI] 40.0-44.9, adult
CPT/HCPCS: 36415; 71045; 74177; 80053; 81001; 83605; 83735; 84100; 84443; 85025; 96365; 96366; 96367; 96372; 99285; G0378; J0744; J1644; J3480; J3490; J7030; Q9967

== ENCOUNTER → 2022-03-17 12:36 | Outpatient (BNVA) | payer MEDICAID, SELFPAY | PROVIDERS: PCP Family Medicine Adult Medicine; Visit Provider Family Medicine Adult Medicine | DX: E87.6 Hypokalemia (principal); N17.9 Acute kidney failure, unspecified; I10 Essential (primary) hypertension; E66.01 Morbid (severe) obesity due to excess calories; Z68.41 Body mass index [BMI] 40.0-44.9, adult; F51.05 Insomnia due to other mental disorder; F41.8 Other specified anxiety disorders; F17.200 Nicotine dependence, unspecified, uncomplicated | CPT/HCPCS: 80053; 83036; 85025 ==

== ENCOUNTER 2022-04-04 12:58 | Inpatient (IN) | payer MEDICAID, SELFPAY ==
[2022-04-04] VITALS (8 sets, daily range): BP systolic 105–126; BP diastolic 66–76; PULSE 82–117; RESP 16–18; TEMP 36.5–36.9; O2SAT 95–99; BMI 40.3
[2022-04-04 14:22] LABS: Basophils # 0.1 10^3/uL (0.0-0.1); Basophils % 0.8 %; Eosinophils # 0.2 10^3/uL (0.0-0.8); Eosinophils % 1.4 %; Hematocrit 40.4 % (37.0-47.0); Hemoglobin 13.6 g/dL (11.5-15.3); Lymphocytes # 2.6 10^3/uL (0.8-4.8); Lymphocytes % 22.2 %; Mean Corpuscular HGB Conc 33.7 g/dL (30.0-36.0); Mean Corpuscular Hemoglobin 31.6 pg (28.0-34.0); Mean Platelet Volume 10.6 fL (7.4-10.4); Monocytes # 0.7 10^3/uL (0.2-0.9); Monocytes % 5.9 %; Neutrophils # 8.21 10^3/uL (1.8-7.7); Neutrophils % 69.3 %; Nucleated Red Blood Cells % 0 %; Platelet Count 465 10^3/cmm (130-400); Red Cell Distribution Width 13.1 % (12.1-15.1); White Blood Count 11.9 10^3/uL (4.0-10.0)
[2022-04-04 14:40] LABS: Bilirubin Urine Neg (Negative); Blood Urine Neg (Negative); Glucose Urine UA Norm (Normal); Ketones Urine Negative (Negative); Leukocyte Esterase Urine Negative (Negative); Nitrate Urine Negative (Negative); Protein Urine Trace (Negative); Urine Appearance SL Hazy (CLEAR); Urine Color Yellow (Yellow); Urobilinogen Urine Norm (Negative); pH Urine 5 (5-7)
[2022-04-04 14:40] LABS: Alanine Aminotransferase 22 U/L (0-33); Albumin Level 4.4 g/dL (3.5-5.2); Alkaline Phosphatase 102 U/L (35-105); Anion Gap 20.2 (5-19); Aspartate Amino Transferase 20 U/L (0-32); Blood Urea Nitrogen 59 mg/dL (6-20); Calcium 9.2 mg/dL (8.5-10.5); Carbon Dioxide 20 mmol/L (22-29); Chloride 98 mmol/L (98-107); Globulin 3.8 g/dL (1.3-4.6); Glomerular Filtration Rate 12.1 mL/min (90-130); Glucose 106 mg/dL (65-115); Lipase 35 U/L (13-60); Osmolality Calculated 297 mOsm/kg (285-295); Potassium 3.2 mmol/L (3.5-5.1); Sodium 135 mmol/L (136-145); Total Bilirubin 0.3 mg/dL (0.15-1.2); Total Protein 8.2 g/dL (6.6-8.7)
[2022-04-04 14:41] LABS: Add Urine Microscopic? YES; Bacteria Urine 1+ /hpf; Hyaline Casts Urine 0-4 /lpf; Mucus Urine TRACE /hpf; WBC Urine 0-4 /hpf (0-5)
[2022-04-04 14:42] LABS: Add Urine Culture? No
--- NOTE | 2022-04-04 15:21 | W.ED.ABDPA2 ---
Documented by User: Tiffanie Finch, SCRAP CARRIER-C 04/04/22 17:07 HPI - Abdominal Pain General: Chief Complaint: Abdominal Pain Stated Complaint: weakness, abd pain Time Seen by Provider: 04/04/22 13:39 History of Present Illness: Patient is in today for ongoing abdominal pain, weakness, dehydration. She reports that she was recently admitted to the hospital after having diarrhea and vomiting causing her to have significant dehydration and acute kidney failure. She states that when she was in the hospital they were unable to get an IV in her so she left AMA. She states that she has had her blood work followed up 1 times since then and it was improving but she is still feeling terrible. She thinks that she is dehydrated again. She has not been able to eat or drink much at all. She denies any possibility of . She is not having as many diarrhea stools, but had 4 yesterday none today. Associated Symptoms: Reports diarrhea, nausea and vomiting; Denies chills, dysuria, fever(s) and syncope Review of Systems Const: Denies: fever(s), chills or body aches Eyes: Denies: change in vision or blurry vision ENMT: Denies: throat pain Card: Denies: chest pain, palpitations, irregular heart rhythm, lightheadedness or syncope Resp: Denies: dyspnea, productive cough or non-productive cough GI: Reports: abdominal pain, nausea, vomiting and diarrhea : Denies: flank pain, difficulty voiding, dysuria, urinary frequency, urinary urgency or urinary hesitancy Musc: Denies: neck pain or back pain Neuro: Denies: headache(s), numbness in extremities or weakness in extremities PFSH ED PFSH: Medical History Anxiety about health Asthma Chronic hip pain, bilateral FHx: cholecystectomy Hypertension Insomnia due to mental disorder Knee pain Morbid obesity with BMI of 40.0-44.9, adult Osteoarthritis of both sacroiliac joints Participant in health and wellness plan Sciatic leg pain Smoker Surgical History H/O tubal ligation History of appendectomy Family History Mother Renal cell cancer Pancreatic cancer Asthma Social History Smoking and tobacco status: heavy tobacco smoker Quit status (tobacco): has tried quititng Smoking risk assessment/counseling performed?: Yes Tobacco counseling given: provider counseling Alcohol intake: never Adopted: No Lives independently: Yes Household members: spouse Marital status: Number of children: 2 Number of grandchildren: 1 Highest education level completed: Some College, No Degree Female Reproductive History: Spontaneous abortions: No Physical Exam Const: COMMON NORMALS: no acute distress, patient oriented x3 and alert Neck/C-Spine: COMMON NORMALS: no JVD Resp: COMMON NORMALS: normal respiratory effort, No use of accessory muscles and clear to auscultation bilaterally AUSCULTATION: clear to auscultation bilaterally Cardio: COMMON NORMALS: no JVD, regular rate, regular rhythm, S1 normal heart sound present, S2 normal heart sound present and No murmurs present (Cardio) RATE: regular rate RHYTHM: regular rhythm HEART SOUNDS: S1 normal heart sound present and S2 normal heart sound present GI: COMMON NORMALS: Normal to inspection, nondistended, normoactive bowel sounds present and Soft to palpation PALPATION: Yes Soft to palpation, Yes Tenderness to palpation present (GI) Details: LLQ and other (Epigastric) and No Guarding due to palpation present (GI) : COMMON NORMALS: Yes no CVA tenderness BLADDER/KIDNEY EXAM: Yes no CVA tenderness Back/Pelvis: COMMON NORMALS: no CVA tenderness Neuro: COMMON NORMALS: patient oriented x3 SENSORIUM/ORIENTATION: Yes alert Course Vital Signs: Vital signs: Vital Signs Temperature 98.0 F 04/06/22 10:44 Pulse Rate 71 04/06/22 10:44 Respiratory Rate 17 04/06/22 10:44 Blood Pressure 124/84 04/06/22 10:44 Pulse Oximetry 97 04/06/22 07:51 Oxygen Delivery Me thod 04/06/22 03:59 MDM - Abdominal Pain Medical Decision Making Review of patient's chart shows that when she was here previously and admitted her white blood cell count was 17 at that time and her creatinine was 4.3. Patient was admitted after being given some IV fluids. Patient ended up leaving AMA. Patient's creatinine went down to 3 in the outpatient setting but is currently 4 again today. IV access obtained and 2 L of normal saline IV bolus administered. Lab Data 04/04/22 14:03 04/04/22 14:03 Labs/Radiology: Radiology Impressions Renal Ultrasound 04/04/22 17:55 IMPRESSION: No hydronephrosis. Laboratory Results WBC 11.9 10^3/uL (4.0-10.0) H 04/04/22 14:03 RBC 4.30 10^6/uL (4.1-5.3) 04/04/22 14:03 Hgb 13.6 g/dL (11.5-15.3) 04/04/22 14:03 Hct 40.4 % (37.0-47.0) 04/04/22 14:03 MCV 94.0 fl (81-99) 04/04/22 14:03 MCH 31.6 pg (28.0-34.0) 04/04/22 14:03 MCHC 33.7 g/dL (30.0-36.0) 04/04/22 14:03 RDW 13.1 % (12.1-15.1) 04/04/22 14:03 Plt Count 465 10^3/cmm (130-400) H 04/04/22 14:03 MPV 10.6 fL (7.4-10.4) H 04/04/22 14:03 Neut % (Auto) 69.3 % 04/04/22 14:03 Lymph % (Auto) 22.2 % 04/04/22 14:03 [place] % (Auto) 5.9 % 04/04/22 14:03 Eos % (Auto) 1.4 % 04/04/22 14:03 Baso % (Auto) 0.8 % 04/04/22 14:03 Neut # (Auto) 8.21 10^3/uL (1.8-7.7) H 04/04/22 14:03 Lymph # (Auto) 2.6 10^3/uL (0.8-4.8) 04/04/22 14:03 [place] # (Auto) 0.7 10^3/uL (0.2-0.9) 04/04/22 14:03 Eos # (Auto) 0.2 10^3/uL (0.0-0.8) 04/04/22 14:03 Baso # (Auto) 0.1 10^3/uL (0.0-0.1) 04/04/22 14:03 Nucleated RBC % (auto) 0 % 04/04/22 14:03 Nucleated RBCs # 0.0 /100WBC 04/04/22 14:03 Sodium 135 mmol/L (136-145) L 04/04/22 14:03 Potassium 3.2 mmol/L (3.5-5.1) L 04/04/22 14:03 Chloride 98 mmol/L (98-107) 04/04/22 14:03 Carbon Dioxide 20 mmol/L (22-29) L 04/04/22 14:03 Anion Gap 20.2 (5-19) H 04/04/22 14:03 BUN 59 mg/dL (6-20) H 04/04/22 14:03 Creatinine 4.0 mg/dL (0.5-0.9) H 04/04/22 14:03 GFR Calculation 12.1 mL/min (90-130) L 04/04/22 14:03 Glucose 106 mg/dL (65-115) 04/04/22 14:03 Calculated Osmolality 297 mOsm/kg (285-295) H 04/04/22 14:03 Calcium 9.2 mg/dL (8.5-10.5) 04/04/22 14:03 Phosphorus 6.2 mg/dL (2.5-4.5) H 04/04/22 14:03 Total Bilirubin 0.3 mg/dL (0.15-1.2) 04/04/22 14:03 AST 20 U/L (0-32) 04/04/22 14:03 ALT 22 U/L (0-33) 04/04/22 14:03 Alkaline Phosphatase 102 U/L (35-105) 04/04/22 14:03 Creatine Kinase 205 U/L (26-192) H 04/04/22 14:03 Total Protein 8.2 g/dL (6.6-8.7) 04/04/22 14:03 Albumin 4.4 g/dL (3.5-5.2) 04/04/22 14:03 Globulin 3.8 g/dL (1.3-4.6) 04/04/22 14:03 Lipase 35 U/L (13-60) 04/04/22 14:03 Urine Color Yellow (Yellow) 04/04/22 13:41 Urine Appearance Sl hazy (CLEAR) A 04/04/22 13:41 Urine pH 5 (5-7) 04/04/22 13:41 Ur Specific [place] 1.030 (1.005-1.030) 04/04/22 13:41 Urine Protein Trace (Negative) 04/04/22 13:41 Urine Glucose (UA) Norm (Normal) 04/04/22 13:41 Urine Ketones Negative (Negative) 04/04/22 13:41 Urine Blood Neg (Negative) 04/04/22 13:41 Urine Nitrate Negative (Negative) 04/04/22 13:41 Urine Bilirubin Neg (Negative) 04/04/22 13:41 Urine Urobilinogen Norm mg/dL (Negative) 04/04/22 13:41 Ur Leukocyte Esterase Negative (Negative) 04/04/22 13:41 Urine RBC None /hpf (0-2) 04/04/22 13:41 Urine WBC 0-4 /hpf (0-5) H 04/04/22 13:41 Ur Squamous Epith Cells 10-15 /hpf (0-5) H 04/04/22 13:41 Amorphous Sediment Not Reportable 04/04/22 13:41 Urine Bacteria 1+ /hpf (NONE) H 04/04/22 13:41 Hyaline Casts 0-4 /lpf H 04/04/22 13:41 Urine Mucus Trace /hpf 04/04/22 13:41 FADIA Screen Positive (NEGATIVE) A 04/04/22 14:03 FADIA Titer 1:40 titer H 04/04/22 14:03 FADIA Pattern Nuclear, homogeneous A 04/04/22 14:03 Discharge Plan Discharge Patient Disposition: Admitted As Inpatient Admit Provider: Cristina Flores Clinical Impression: Acute kidney injury, Viral gastroenteritis, Diarrhea, Hypertension Condition: Stable Coding Level of Care Code ED Journeyman Glazier for Chg Fwd Documented by User: Chad Lujan DO 04/10/22 06:56 HPI - Abdominal Pain General: Chief Complaint: Abdominal Pain Stated Complaint: weakness, abd pain Time Seen by Provider: 04/04/22 13:39 PFSH ED PFSH: Medical History Anxiety about health Asthma Chronic hip pain, bilateral FHx: cholecystectomy Hypertension Insomnia due to mental disorder Knee pain Morbid obesity with BMI of 40.0-44.9, adult Osteoarthritis of both sacroiliac joints Participant in health and wellness plan Sciatic leg pain Smoker Surgical History H/O tubal ligation History of appendectomy Family History Mother Renal cell cancer Pancreatic cancer Asthma Social History Smoking and tobacco status: heavy tobacco smoker Quit status (tobacco): has tried quititng Smoking risk assessment/counseling performed?: Yes Tobacco counseling given: provider counseling Alcohol intake: never Adopted: No Lives independently: Yes Household members: spouse Marital status: Number of children: 2 Number of grandchildren: 1 Highest education level completed: Some College, No Degree Course Vital Signs: Vital signs: Vital Signs Temperature 98.0 F 04/06/22 10:44 Pulse Rate 71 04/06/22 10:44 Respiratory Rate 17 04/06/22 10:44 Blood Pressure 124/84 04/06/22 10:44 Pulse Oximetry 97 04/06/22 07:51 Oxygen Delivery Me thod 04/06/22 03:59 MDM - Abdominal Pain Medical Decision Making Review of patient's chart shows that when she was here previously and admitted her white blood cell count was 17 at that time and her creatinine was 4.3. Patient was admitted after being given some IV fluids. Patient ended up leaving AMA. Patient's creatinine went down to 3 in the outpatient setting but is currently 4 again today. IV access obtained and 2 L of normal saline IV bolus administered. Patient care handoff received from Finch continuation of ED evaluation. I personally saw and evaluated patient and reperformed villagran portions of E/M. Diarrhea and vomiting intermittently for the last 2 weeks. Other family members with viral gastroenteritis. Creatinine significantly worsened. Will admit for acute kidney injury discussed with hospitalist orders written being given IV fluids now. Discussed with patient, Medical Records I reviewed the patient's medical records. Lab Data I reviewed the patient's lab results. 04/04/22 14:03 04/04/22 14:03 Labs/Radiology: Radiology Impressions Renal Ultrasound 04/04/22 17:55 IMPRESSION: No hydronephrosis. Laboratory Results WBC 11.9 10^3/uL (4.0-10.0) H 04/04/22 14:03 RBC 4.30 10^6/uL (4.1-5.3) 04/04/22 14:03 Hgb 13.6 g/dL (11.5-15.3) 04/04/22 14:03 Hct 40.4 % (37.0-47.0) 04/04/22 14:03 MCV 94.0 fl (81-99) 04/04/22 14:03 MCH 31.6 pg (28.0-34.0) 04/04/22 14:03 MCHC 33.7 g/dL (30.0-36.0) 04/04/22 14:03 RDW 13.1 % (12.1-15.1) 04/04/22 14:03 Plt Count 465 10^3/cmm (130-400) H 04/04/22 14:03 MPV 10.6 fL (7.4-10.4) H 04/04/22 14:03 Neut % (Auto) 69.3 % 04/04/22 14:03 Lymph % (Auto) 22.2 % 04/04/22 14:03 [place] % (Auto) 5.9 % 04/04/22 14:03 Eos % (Auto) 1.4 % 04/04/22 14:03 Baso % (Auto) 0.8 % 04/04/22 14:03 Neut # (Auto) 8.21 10^3/uL (1.8-7.7) H 04/04/22 14:03 Lymph # (Auto) 2.6 10^3/uL (0.8-4.8) 04/04/22 14:03 [place] # (Auto) 0.7 10^3/uL (0.2-0.9) 04/04/22 14:03 Eos # (Auto) 0.2 10^3/uL (0.0-0.8) 04/04/22 14:03 Baso # (Auto) 0.1 10^3/uL (0.0-0.1) 04/04/22 14:03 Nucleated RBC % (auto) 0 % 04/04/22 14:03 Nucleated RBCs # 0.0 /100WBC 04/04/22 14:03 Sodium 135 mmol/L (136-145) L 04/04/22 14:03 Potassium 3.2 mmol/L (3.5-5.1) L 04/04/22 14:03 Chloride 98 mmol/L (98-107) 04/04/22 14:03 Carbon Dioxide 20 mmol/L (22-29) L 04/04/22 14:03 Anion Gap 20.2 (5-19) H 04/04/22 14:03 BUN 59 mg/dL (6-20) H 04/04/22 14:03 Creatinine 4.0 mg/dL (0.5-0.9) H 04/04/22 14:03 GFR Calculation 12.1 mL/min (90-130) L 04/04/22 14:03 Glucose 106 mg/dL (65-115) 04/04/22 14:03 Calculated Osmolality 297 mOsm/kg (285-295) H 04/04/22 14:03 Calcium 9.2 mg/dL (8.5-10.5) 04/04/22 14:03 Phosphorus 6.2 mg/dL (2.5-4.5) H 04/04/22 14:03 Total Bilirubin 0.3 mg/dL (0.15-1.2) 04/04/22 14:03 AST 20 U/L (0-32) 04/04/22 14:03 ALT 22 U/L (0-33) 04/04/22 14:03 Alkaline Phosphatase 102 U/L (35-105) 04/04/22 14:03 Creatine Kinase 205 U/L (26-192) H 04/04/22 14:03 Total Protein 8.2 g/dL (6.6-8.7) 04/04/22 14:03 Albumin 4.4 g/dL (3.5-5.2) 04/04/22 14:03 Globulin 3.8 g/dL (1.3-4.6) 04/04/22 14:03 Lipase 35 U/L (13-60) 04/04/22 14:03 Urine Color Yellow (Yellow) 04/04/22 13:41 Urine Appearance Sl hazy (CLEAR) A 04/04/22 13:41 Urine pH 5 (5-7) 04/04/22 13:41 Ur Specific [place] 1.030 (1.005-1.030) 04/04/22 13:41 Urine Protein Trace (Negative) 04/04/22 13:41 Urine Glucose (UA) Norm (Normal) 04/04/22 13:41 Urine Ketones Negative (Negative) 04/04/22 13:41 Urine Blood Neg (Negative) 04/04/22 13:41 Urine Nitrate Negative (Negative) 04/04/22 13:41 Urine Bilirubin Neg (Negative) 04/04/22 13:41 Urine Urobilinogen Norm mg/dL (Negative) 04/04/22 13:41 Ur Leukocyte Esterase Negative (Negative) 04/04/22 13:41 Urine RBC None /hpf (0-2) 04/04/22 13:41 Urine WBC 0-4 /hpf (0-5) H 04/04/22 13:41 Ur Squamous Epith Cells 10-15 /hpf (0-5) H 04/04/22 13:41 Amorphous Sediment Not Reportable 04/04/22 13:41 Urine Bacteria 1+ /hpf (NONE) H 04/04/22 13:41 Hyaline Casts 0-4 /lpf H 04/04/22 13:41 Urine Mucus Trace /hpf 04/04/22 13:41 FADIA Screen Positive (NEGATIVE) A 04/04/22 14:03 FADIA Titer 1:40 titer H 04/04/22 14:03 FADIA Pattern Nuclear, homogeneous A 04/04/22 14:03 Discharge Plan Discharge Patient Disposition: Admitted As Inpatient Admit Provider: Cristina Flores Clinical Impression: Acute kidney injury, Viral gastroenteritis, Diarrhea, Hypertension Condition: Stable Coding Level of Care Code ED Journeyman Glazier for Jeremy Cherry
[2022-04-04] MEDS: sodium chloride 0.9% 1,000 ML 999 ML IV ×3 (15:33→17:33)
--- NOTE | 2022-04-04 15:34 | PC.NURSE ---
REPORT GIVEN TO SHAVONNE HARVEY AT [id number]
[2022-04-04] MEDS: pantoprazole 40 mg SDV 80 MG IVP (17:15)
--- NOTE | 2022-04-04 17:55 | USR_ITS ---
PROCEDURE INFORMATION: Exam: US Retroperitoneal; Complete; Kidneys and Bladder Exam date and time: 04/04/2022 6:31 PM Age: 46 years old Clinical indication: Other: [place]; Additional info: Acute kidney injury TECHNIQUE: Imaging protocol: Real-time ultrasound of the retroperitoneum with image documentation. Complete exam focused on the kidneys and bladder. COMPARISON: CT abdomen pelvis w con* [id number] 03/12/2022 11:03 PM FINDINGS: Right kidney: Right kidney measures 11.3 cm in length. No stones. No hydronephrosis. Left kidney: Left kidney measures 11.8 cm in length. No stones. No hydronephrosis. Urinary bladder: Prevoid bladder volume of 191 mL. Postvoid residual of 27 mL. Bilateral ureteral jets noted. US/US renal BI* [id number] IMPRESSION: No hydronephrosis.
[2022-04-04] MEDS: ipratropium-albuterol 3 mL Neb INHALATION (18:31)
[2022-04-04 18:32] LABS: Lactic Sepsis W/Reflex 0.5 mmol/L (0.5-2.2)
[2022-04-04 18:57] LABS: Creatine Phosphokinase 205 U/L (26-192); Phosphorus 6.2 mg/dL (2.5-4.5)
--- NOTE | 2022-04-04 19:06 | P.HP_ITS ---
Providers/Chief Complaint Primary Care Provider: Vince Hearn MD Chief Complaint: weakness, abd pain History of Present Illness Anita Rich is a 46 year old female who has been suffering from diarrhea and vomiting for last 2 weeks, she is attributing to a vital gastritis in the family, presented with chief complaint of dehydration low urine output and abnormal kidney function. Patient is not experience any chest pain, shortness of breath, fever but endorsing extreme dehydration, lethargy, fatigue. Patient is stating that she does not go much to the bathroom in the daytime but at nighttime she has to go up and void urine. She has not noticed any chest pain, fever. Despite all this dehydration she has kept taking lisinopril. She was in the ER few days ago when she left AMA because of the waiting time in the ER at that time she was told she has abnormal kidney function and things have not improved since then In the ER today she has been diagnosed with acute renal failure severe dehydration, senior electrical estimator has been consulted She has been put on renal dialysis diet Clinically she is very dry Review of Systems Const: Denies: fever(s) Eyes: Denies: change in vision ENMT: Denies: throat pain Card: Denies: chest pain Resp: Denies: dyspnea GI: Reports: nausea : Denies: flank pain Musc: Denies: neck pain Skin/Breast: Denies: rash Neuro: Denies: headache(s) Psych: Reports: anxiety Endo: Denies: polyuria [place]/Lymph: Denies: easy bruising All/Imm: Denies: urticaria Medications/Allergies Home Medications Medication Instructions Recorded Confirmed Last Taken Type aspirin 81 mg tablet,delayed 81 mg PO DAILY circulation #90 tabs 11/08/21 04/04/22 04/03/22 Rx release albuterol sulfate 2.5 mg/3 mL 2.5 mg (3 mL) inhalation Q6H PRN 02/07/22 04/04/22 Unknown Rx (0.083 %) solution for nebulization shortness of breath or wheezing #90 mL albuterol sulfate 90 mcg/actuation 2 inh inhalation Q4H PRN shortness 02/07/22 04/04/22 Unknown Rx aerosol inhaler of breath or wheezing #18 grams amlodipine 5 mg tablet 5 mg PO DAILY #30 tabs 02/07/22 04/04/22 04/03/22 Rx ipratropium bromide 17 2 puff inhalation TID PRN 02/07/22 04/04/22 Unknown Rx mcg/actuation HFA aerosol inhaler shortness of breath or wheezing (Atrovent HFA) #12.9 grams lisinopril 20 mg tablet 20 mg PO DAILY high blood pressure 02/07/22 04/04/22 04/03/22 Rx #30 tabs meloxicam 15 mg tablet 15 mg PO DAILY arthritis #30 tabs 02/07/22 04/04/22 04/03/22 Rx montelukast 10 mg tablet 10 mg PO DAILY #30 tabs 02/07/22 04/04/22 04/03/22 Rx (Singulair) metoprolol tartrate 25 mg tablet 25 mg PO DAILY 03/13/22 04/04/22 04/03/22 History eszopiclone 2 mg tablet (Lunesta) 2 mg PO ONCE PRN sleep #30 tabs 03/17/22 04/04/22 Unknown Rx Allergies Allergy/AdvReac Type Severity Reaction Status Date / Time No Known Allergies Allergy Verified 03/17/22 11:14 PFSH Acute PFSH: Medical History Anxiety about health Asthma Chronic hip pain, bilateral FHx: cholecystectomy Hypertension Insomnia due to mental disorder Knee pain Morbid obesity with BMI of 40.0-44.9, adult Osteoarthritis of both sacroiliac joints Participant in health and wellness plan Sciatic leg pain Smoker Surgical History H/O tubal ligation History of appendectomy Family History Mother Renal cell cancer Pancreatic cancer Asthma Social History Smoking and tobacco status: heavy tobacco smoker Quit status (tobacco): has tried quititng Smoking risk assessment/counseling performed?: Yes Tobacco counseling given: provider counseling Alcohol intake: never Adopted: No Lives independently: Yes Household members: spouse Marital status: Number of children: 2 Number of grandchildren: 1 Highest education level completed: Some College, No Degree Female Reproductive History: Spontaneous abortions: No Vitals/I&O/Wt Last Vital Signs Temp 97.7 F 04/04/22 13:12 Pulse 83 04/04/22 18:30 Resp 16 04/04/22 18:30 BP 124/66 04/04/22 16:00 Pulse Ox 99 04/04/22 18:30 O2 Del Method 04/04/22 18:30 04/04/22 04/04/22 04/04/22 06:59 14:59 22:59 Intake Total 1000 / 1000 Balance 1000 / 1000 Weight last 48 hrs Weight 106.594 kg Physical Exam Narrative: Patient is clinically very dry Awake and alert Chest pain-free S1, S2 Abdomen soft Nonfocal neuro exam Afebrile Pleasant and cooperative Curtis catheter in place Abdomen soft Systolic murmur appreciated during my examination Data 04/04/22 14:03 04/04/22 14:03 A&P Assessment and plan (1) Insomnia due to mental disorder: (2) Acute renal failure: (3) Anxiety about health: (4) Smoker: (5) Morbid obesity with BMI of 40.0-44.9, adult: (6) Hypertension: Plan Dehydration related CHARLEY Start IV fluids Fluid challenge for now Consulted nephro Hemodynamically stable Check urine studies Hold lisinopril Hold naproxen Hypertension: Would use metoprolol and amlodipine for now Viral gastritis with diarrhea Only 2 episode of emesis in the last few days Continue fluid hydration Renal nondialysis diet DVT prophylaxis heparin Full code Attestations Medical Necessity Statement*: Anticipating patient will spend more than 2 midnights Diagnoses Insomnia due to mental disorder F51.05 Acute renal failure N17.9 Anxiety about health F41.8 Smoker F17.200 Morbid obesity with BMI of 40.0-44.9, adult E66.01; Z68.41 Hypertension I10
[2022-04-04 19:19] LABS: Amphetamines Screen Urine Positive (Negative); Cocaine Screen Urine Negative (Negative); Opiate Screen Urine Negative (Negative); PCP Screen Urine Negative (Negative); THC Screen Urine Negative (Negative)
[2022-04-04 19:20] LABS: Barbiturates Screen Urine Negative (Negative); Benzodiazepines Screen Urine Negative (Negative)
[2022-04-04 19:31] LABS: Potassium, Radom Urine 14 mmol/L; Urine Random Chloride 28 mmol/L; Urine Random Sodium 54 mmol/L
[2022-04-04] MEDS: heparin 5,000 unit/mL INJ 1 mL 5000 UNIT SUBCUT (19:47)
[2022-04-04] MEDS: sodium chloride 0.9% 1,000 ML 125 ML IV (21:10)
[2022-04-04 22:28] LABS: Urine Random Sodium 71 mmol/L
[2022-04-04 22:33] LABS: Creatinine Urine, Random 116 mg/dL (28-217); Microalbum Creatinine Ratio Ur 26 mg/dL (0-20); Microalbumin Random Urine 3 ug/dL (0-20)
[2022-04-05] VITALS (9 sets, daily range): BP systolic 101–122; BP diastolic 62–76; PULSE 68–92; RESP 16–17; TEMP 36.4–36.8; O2SAT 94–99
[2022-04-05 00:46] LABS: Eosinophil Urine No Eosinophils Seen; Urine Eosinophil Count 0 (0-0)
[2022-04-05] MEDS: sodium chloride 0.9% 1,000 ML 125 ML IV ×3 (05:22→19:27)
[2022-04-05] MEDS: heparin 5,000 unit/mL INJ 1 mL 5000 UNIT SUBCUT ×2 (05:22→17:12)
[2022-04-05] MEDS: amlodipine 5 mg Tablet PO (08:15)
[2022-04-05] MEDS: pantoprazole DR 40 mg Tablet PO (08:15)
[2022-04-05] MEDS: metoprolol tartrate 25 mg Tablet PO (08:15)
[2022-04-05] MEDS: aspirin 81 mg EC Tablet PO (08:15)
[2022-04-05] MEDS: montelukast sodium 10 mg Tablet PO (08:15)
--- NOTE | 2022-04-05 10:15 | PM.CONSULT ---
Providers/Reason For Consult Consulting Physician/Specialty*: [facility] /Nephrology Reason for Consult*: CHARLEY Attending Physician: Felipa Miles MD Primary Care Provider: Vince Hearn MD History of Present Illness History of Present Illness Anita Rich is a 46 year old female with PMH of HTN , asthma presented with severe nausea, vomiting and diarrhea for the last 1 week. She was not able to eat and drink for the last 1 week. She also has noticed that her urine output has dropped. Otherwise she denied any chest pain or shortness of breath. In the ER she was found to have elevated creatinine of 4.0. Potassium was low at 3.2 and the bicarbonate was low at 20. Repeat labs this morning are pending. Currently receiving normal saline at 125 cc an hour. She currently denies any diarrhea. Review of Systems Narrative: Other ROS negative Medications/Allergies Home Medications Medication Instructions Recorded Confirmed Last Taken Type aspirin 81 mg tablet,delayed 81 mg PO DAILY circulation #90 tabs 11/08/21 04/04/22 04/03/22 Rx release albuterol sulfate 2.5 mg/3 mL 2.5 mg (3 mL) inhalation Q6H PRN 02/07/22 04/04/22 Unknown Rx (0.083 %) solution for nebulization shortness of breath or wheezing #90 mL albuterol sulfate 90 mcg/actuation 2 inh inhalation Q4H PRN shortness 02/07/22 04/04/22 Unknown Rx aerosol inhaler of breath or wheezing #18 grams amlodipine 5 mg tablet 5 mg PO DAILY #30 tabs 02/07/22 04/04/22 04/03/22 Rx ipratropium bromide 17 2 puff inhalation TID PRN 02/07/22 04/04/22 Unknown Rx mcg/actuation HFA aerosol inhaler shortness of breath or wheezing (Atrovent HFA) #12.9 grams lisinopril 20 mg tablet 20 mg PO DAILY high blood pressure 02/07/22 04/04/22 04/03/22 Rx #30 tabs meloxicam 15 mg tablet 15 mg PO DAILY arthritis #30 tabs 02/07/22 04/04/22 04/03/22 Rx montelukast 10 mg tablet 10 mg PO DAILY #30 tabs 02/07/22 04/04/22 04/03/22 Rx (Singulair) metoprolol tartrate 25 mg tablet 25 mg PO DAILY 03/13/22 04/04/22 04/03/22 History eszopiclone 2 mg tablet (Lunesta) 2 mg PO ONCE PRN sleep #30 tabs 03/17/22 04/04/22 Unknown Rx Allergies Allergy/AdvReac Type Severity Reaction Status Date / Time No Known Allergies Allergy Verified 03/17/22 11:14 Current Medications Generic Name Dose Route Start Last Admin Trade Name [place] PRN Reason Stop Dose Admin Amlodipine Besylate 5 mg 04/05/22 09:00 04/05/22 08:15 Amlodipine 5 Mg Tablet PO 5 mg DAILY AMY Administration Aspirin 81 mg 04/05/22 09:00 04/05/22 08:15 Aspirin 81 Mg Ec Tablet PO 81 mg DAILY AMY Administration Heparin Sodium (Porcine) 5,000 unit 04/04/22 18:00 04/05/22 05:22 Heparin 5,000 Unit/Ml Inj 1 Ml SUBCUT 5,000 unit Q12H AMY Administration Sodium Chloride 1,000 mls @ 125 mls/hr 04/04/22 18:00 04/05/22 05:22 Sodium Chloride 0.9% IV 125 mls/hr .Q8H AMY Administration Metoprolol Tartrate 25 mg 04/05/22 09:00 04/05/22 08:15 Metoprolol Tartrate 25 Mg Tablet PO 25 mg DAILY AMY Administration Montelukast Sodium 10 mg 04/05/22 09:00 04/05/22 08:15 Montelukast Sodium 10 Mg Tablet PO 10 mg DAILY AMY Administration Pantoprazole Sodium 40 mg 04/05/22 09:00 04/05/22 08:[address] 40 Mg Tablet PO 40 mg DAILY AMY Administration PFSH Acute PFSH: Medical History Anxiety about health Asthma Chronic hip pain, bilateral FHx: cholecystectomy Hypertension Insomnia due to mental disorder Knee pain Morbid obesity with BMI of 40.0-44.9, adult Osteoarthritis of both sacroiliac joints Participant in health and wellness plan Sciatic leg pain Smoker Surgical History H/O tubal ligation History of appendectomy Family History Mother Renal cell cancer Pancreatic cancer Asthma Social History Smoking and tobacco status: heavy tobacco smoker Quit status (tobacco): has tried quititng Smoking risk assessment/counseling performed?: Yes Tobacco counseling given: provider counseling Alcohol intake: never Adopted: No Lives independently: Yes Household members: spouse Marital status: Number of children: 2 Number of grandchildren: 1 Highest education level completed: Some College, No Degree Female Reproductive History: Spontaneous abortions: No Vitals/I&O/Wt Last Vital Signs Temp 98.2 F 04/05/22 08:00 Pulse 75 04/05/22 08:00 Resp 16 04/05/22 08:00 BP 101/63 04/05/22 08:00 Pulse Ox 98 04/05/22 08:00 O2 Del Method 04/05/22 08:00 04/04/22 04/05/22 04/05/22 22:59 06:59 14:59 Intake Total 1600 / 1600 1240 / 2840 118 / 118 Output Total 350 / 350 1000 / 1350 800 / 800 Balance 1250 / 1250 240 / 1490 -682 / -682 Weight last 48 hrs Weight 102.739 kg Weight 106.594 kg Physical Exam Narrative: Pleasant and cooperative Awake and alert S1, S2- per report Abdomen soft no edema Urinary Catheter Management: Curtis: Cath Placed During This Visit: yes Reason for Continuing Indwelling Catheter: Accurate Measurement of Urinary Output in Critically Ill Patients Urinary Catheter Date of Insertion: 04/04/22 Urinary Catheter Time of Insertion: 19:12 Data 04/04/22 14:03 04/05/22 08:16 A&P Assessment and plan (1) Acute renal failure: Plan 1. Acute kidney injury: Secondary to severe dehydration from vomiting and diarrhea. Baseline renal function is normal. Creatinine is 4.2 on presentation, repeat labs pending. Continue IV fluids at current rate. Hold MIGUE inhibitors 2. Hypertension: Blood pressure controlled, MIGUE inhibitor is on hold 3. Hypokalemia: Repleted , Await repeat BMP 4. Metabolic acidosis : from CHARLEY pt evaluated using audiovisual cart. Time spent 45 min Consult Attestations Medical Necessity Statement: for CHARLEY management Coding Level of Care Code Acute Code for [facility] Diagnoses Acute renal failure N17.9
--- NOTE | 2022-04-05 11:08 | P.PN_ITS ---
Subjective Subjective: Hemolyzed sample BMP is pending Patient is well hydrated today She did not endorse to any recreational drugs Vitals/I&O/Wt Last Vital Signs Temp 98.2 F 04/05/22 08:00 Pulse 75 04/05/22 08:00 Resp 16 04/05/22 08:00 BP 101/63 04/05/22 08:00 Pulse Ox 98 04/05/22 08:00 O2 Del Method 04/05/22 08:00 04/04/22 04/05/22 04/05/22 22:59 06:59 14:59 Intake Total 1600 / 1600 1240 / 2840 118 / 118 Output Total 350 / 350 1000 / 1350 800 / 800 Balance 1250 / 1250 240 / 1490 -682 / -682 Weight last 48 hrs Weight 102.739 kg Weight 106.594 kg Physical Exam Narrative: Awake and alert Hydration status improving Active emesis S1, S2 Abdomen soft GCS 15 Doing well on room air No audible stridor or wheezing , PERRLA Urinary Catheter Management: Curtis: Cath Placed During This Visit: yes Reason for Continuing Indwelling Catheter: Accurate Measurement of Urinary O utput in Critically Ill Patients Urinary Catheter Date of Insertion: 04/04/22 Urinary Catheter Time of Insertion: 19:12 Data 04/04/22 14:03 04/05/22 08:16 A&P Assessment and plan (1) Insomnia due to mental disorder: (2) Hypokalemia: (3) Acute renal failure: (4) Anxiety about health: (5) Amphetamine adverse reaction: (6) Smoker: (7) Morbid obesity with BMI of 40.0-44.9, adult: (8) Hypertension: (9) Asthma: Qualifiers: Asthma severity: moderate Asthma persistence: persistent Asthma complication type: with acute exacerbation Qualified Code(s): J45.41 - Moderate persistent asthma with (acute) exacerbation Plan Dehydration related acute renal failure BMP pending today Continue IV fluids Patient is not endorsing to recreational drugs Positive methamphetamine in urine Hypokalemia: Repleted Mildly acidotic with bicarb 20 Awaiting labs from today her morning sample was hemolyzed She remained hemodynamically stable Appreciate nephro recommendations Full code Regular diet DVT prophylaxis with heparin No active diarrhea, will check celiac panel she gets diarrhea hospitalization Attestations Medical Necessity Statement*: Medical management Diagnoses Insomnia due to mental disorder F51.05 Hypokalemia E87.6 Acute renal failure N17.9 Anxiety about health F41.8 Amphetamine adverse reaction T43.625A Smoker F17.200 Morbid obesity with BMI of 40.0-44.9, adult E66.01; Z68.41 Hypertension I10 Asthma J45.41 Asthma severity: moderate Asthma persistence: persistent Asthma complication type: with acute exacerbation
--- NOTE | 2022-04-05 11:47 | PC.CHAP ---
Pastoral Care Encounter/Spiritual Assessment Type of Contact [] Declined data analyst report writer visit [] Patient/Family/Request visit [] Outpatient visit [] Follow-up visit [] Physician referral [] Code/Alert x[]x Routine visit [] Staff referral [] Actively dying [] Patient sleeping [x] Family support [] [] Out of room [] Palliative care [] [] Receiving care in room [] Pre-surgical visit [] Trauma [] Long length of stay [] ICU visit [] Other: Relational/Emotional Strength [x] Patient feels connected with others/family/visitors/staff [] Distress [] Loneliness/isolation [] Abandonment Spirituality of Patient [x] Person of Luz [] Attends Muslim of their Luz [x] Believes in Prayer [] Reads Bible or Spiritism materials [] There are Spiritual issues to be addressed Cistern Room Working Supervisor Interventions [x] Prayer [x] Active listening [] Non-anxious presence [] Spiritual/emotional support [] Crisis/trauma care [] Spiritual counseling [] Bereavement support [] Provided bereavement packet [] Provided Bible/devotional materials [] Provided toy/stuffed animal, coloring book to patient or family member [] Provided Communion [] Anointing/[place] [] Salvation [x] Completed spiritual assessment [] Other: Impact on Illness or Injury [] Angry [] Fearful [] Anxious [] Often cries [] Exhaustion [] Unable to work [] Unable to attend moravian [] Unable to walk/stand [] Unable to read [] Unable to drive [] Unable to eat/drink [] Unable to sleep [] Unable to be with family [] Patient intubated [] Other: Summary patient in lots ofpain Time spent with patient 10 min
[2022-04-05 12:51] LABS: Anion Gap 12.9 (5-19); Blood Urea Nitrogen 32 mg/dL (6-20); Calcium 8.4 mg/dL (8.5-10.5); Carbon Dioxide 20 mmol/L (22-29); Chloride 111 mmol/L (98-107); Glomerular Filtration Rate 44.3 mL/min (90-130); Glucose 97 mg/dL (65-115); Magnesium 1.8 mg/dL (1.7-2.3); Osmolality Calculated 297 mOsm/kg (285-295); Phosphorus 2.7 mg/dL (2.5-4.5); Potassium 3.9 mmol/L (3.5-5.1); Sodium 140 mmol/L (136-145)
--- NOTE | 2022-04-05 18:03 | PC.NURSE ---
SHIFT SUMMARY PATIENT HAS DONE WELL TODAY. KIDNEY FUNCTION IMPROVING. GOOD URINE OUTPUT. NO COMPLAINTS OF DIARRHEA OR VOMITING. TOLERATING DIET. CURRENTLY RESTING IN BED WITH VISITORS AT BEDSIDE.
--- NOTE | 2022-04-05 19:31 | PC.NURSE ---
Patient is asking for something to help her sleep tonight. She takes Lunesta at home, but we don't carry it here. Dr. Muñoz notified.
[2022-04-05] MEDS: acetaminophen 325 mg Tablet 650 MG PO (19:51)
[2022-04-05] MEDS: temazepam 15 mg Capsule PO (19:51)
[2022-04-06 03:59] VITALS: BP 116/76; PULSE 71; RESP 17; TEMP 36.6; O2SAT 96
[2022-04-06 04:19] VITALS: PULSE 61
[2022-04-06] MEDS: heparin 5,000 unit/mL INJ 1 mL 5000 UNIT SUBCUT (04:39)
[2022-04-06] MEDS: sodium chloride 0.9% 1,000 ML 125 ML IV (04:40)
[2022-04-06 05:16] LABS: Basophils # 0.1 10^3/uL (0.0-0.1); Eosinophils # 0.3 10^3/uL (0.0-0.8); Eosinophils % 4.3 %; Hematocrit 34.6 % (37.0-47.0); Hemoglobin 11.3 g/dL (11.5-15.3); Lymphocytes % 42.9 %; Mean Corpuscular HGB Conc 32.7 g/dL (30.0-36.0); Mean Platelet Volume 10.3 fL (7.4-10.4); Monocytes # 0.4 10^3/uL (0.2-0.9); Monocytes % 6.2 %; Neutrophils # 3.16 10^3/uL (1.8-7.7); Neutrophils % 45.3 %; Nucleated Red Blood Cells % 0 %; Platelet Count 349 10^3/cmm (130-400); Red Blood Count 3.53 10^6/uL (4.1-5.3); Red Cell Distribution Width 13.4 % (12.1-15.1)
[2022-04-06 05:35] LABS: Anion Gap 12.7 (5-19); Blood Urea Nitrogen 20 mg/dL (6-20); Calcium 8.1 mg/dL (8.5-10.5); Carbon Dioxide 22 mmol/L (22-29); Chloride 112 mmol/L (98-107); Glucose 108 mg/dL (65-115); Osmolality Calculated 299 mOsm/kg (285-295); Potassium 3.7 mmol/L (3.5-5.1); Sodium 143 mmol/L (136-145)
[2022-04-06 07:51] VITALS: BP 124/84; PULSE 71; RESP 17; TEMP 36.7; O2SAT 97
[2022-04-06 08:00] VITALS: BP 124/84; PULSE 71; RESP 17; TEMP 36.7
--- NOTE | 2022-04-06 08:08 | P.DS_ITS ---
Discharge Providers Date of Admission: 04/04/22 17:59 Date of Discharge: April 06, 2022 Attending Provider at Admission: Cristina Flores MD Attending Provider at Discharge: Felipa Miles MD Primary Care Provider: Vince Hearn MD Diagnoses at Discharge Discharge Diagnosis (1) Insomnia due to mental disorder: Status: Acute (2) Hypokalemia: Status: Acute (3) Acute renal failure: Status: Acute (4) Anxiety about health: Status: Acute (5) Amphetamine adverse reaction: Status: Acute (6) Smoker: Status: Acute (7) Morbid obesity with BMI of 40.0-44.9, adult: Status: Acute (8) Hypertension: Status: Acute (9) Asthma: Status: Acute Qualifiers: Asthma complication type: with acute exacerbation Asthma persistence: persistent Asthma severity: moderate Qualified Code(s): J45.41 - Moderate persistent asthma with (acute) exacerbation Reason for Visit Reason for Visit: weakness, abd pain Hospital Course Hospital Course 46 female who was admitted to the hospital for severe dehydration, acute renal failure hyperkalemia hyperphosphatemia. Nephro was consulted admission because of her abnormal markers. Patient did very well with IV fluid hydration. U tox positive for methamphetamine. She remained afebrile. Hemodynamically stable. At the time of discharge her creatinine is normal. Potassium 3.7, phosphorus is normal. She is making good urine. Remarkable recovery with IV fluid hydration. I have discontinued lisinopril for her hypertension at the time of discharge. Physical Exam Narrative: Awake and alert Nonfocal neuro exam Euvolemic Abdomen soft Urinary Catheter Management: Curtis: Cath Placed During This Visit: yes Reason for Continuing Indwelling Catheter: Accurate Measurement of Urinary Output in Critically Ill Patients Urinary Catheter Date of Insertion: 04/04/22 Urinary Catheter Time of Insertion: 19:12 Discharge Data Studies Completed and Pending Completed Studies During Hospitalization Category Date Time Status US renal BI* [id number] Stat Ultrasound 04/04/22 17:55 Completed Pending at discharge Category Date Time Status FADIA Screen w/ Reflex Routine Lab 04/04/22 14:03 Received Clostridioides Difficile PCR Routine Lab 04/04/22 20:45 Uncollected OVA and Parasites, Conc and PE Routine Lab 04/04/22 20:45 Uncollected Stool Culture, Bacterial [Enteric Bacterial Panel by Lab 04/04/22 20:45 Uncollected PCR] Routine Radiology Impressions Renal Ultrasound 04/04/22 17:55 IMPRESSION: No hydronephrosis. Laboratory Results WBC 7.0 10^3/uL (4.0-10.0) 04/06/22 05:02 RBC 3.53 10^6/uL (4.1-5.3) L 04/06/22 05:02 Hgb 11.3 g/dL (11.5-15.3) L 04/06/22 05:02 Hct 34.6 % (37.0-47.0) L 04/06/22 05:02 MCV 98.0 fl (81-99) 04/06/22 05:02 MCH 32.0 pg (28.0-34.0) 04/06/22 05:02 MCHC 32.7 g/dL (30.0-36.0) 04/06/22 05:02 RDW 13.4 % (12.1-15.1) 04/06/22 05:02 Plt Count 349 10^3/cmm (130-400) 04/06/22 05:02 MPV 10.3 fL (7.4-10.4) 04/06/22 05:02 Neut % (Auto) 45.3 % 04/06/22 05:02 Lymph % (Auto) 42.9 % 04/06/22 05:02 [place] % (Auto) 6.2 % 04/06/22 05:02 Eos % (Auto) 4.3 % 04/06/22 05:02 Baso % (Auto) 1.0 % 04/06/22 05:02 Neut # (Auto) 3.16 10^3/uL (1.8-7.7) 04/06/22 05:02 Lymph # (Auto) 3.0 10^3/uL (0.8-4.8) 04/06/22 05:02 [place] # (Auto) 0.4 10^3/uL (0.2-0.9) 04/06/22 05:02 Eos # (Auto) 0.3 10^3/uL (0.0-0.8) 04/06/22 05:02 Baso # (Auto) 0.1 10^3/uL (0.0-0.1) 04/06/22 05:02 Nucleated RBC % (auto) 0 % 04/06/22 05:02 Nucleated RBCs # 0.0 /100WBC 04/06/22 05:02 Sodium 143 mmol/L (136-145) 04/06/22 05:02 Potassium 3.7 mmol/L (3.5-5.1) 04/06/22 05:02 Chloride 112 mmol/L (98-107) H 04/06/22 05:02 Carbon Dioxide 22 mmol/L (22-29) 04/06/22 05:02 Anion Gap 12.7 (5-19) 04/06/22 05:02 BUN 20 mg/dL (6-20) 04/06/22 05:02 Creatinine 1.0 mg/dL (0.5-0.9) H 04/06/22 05:02 GFR Calculation 60.0 mL/min (90-130) L 04/06/22 05:02 Glucose 108 mg/dL (65-115) 04/06/22 05:02 Calculated Osmolality 299 mOsm/kg (285-295) H 04/06/22 05:02 Lactic Acid 0.5 mmol/L (0.5-2.2) 04/04/22 18:09 Calcium 8.1 mg/dL (8.5-10.5) L 04/06/22 05:02 Phosphorus 2.7 mg/dL (2.5-4.5) D 04/05/22 11:50 Magnesium 1.8 mg/dL (1.7-2.3) 04/05/22 11:50 Total Bilirubin 0.3 mg/dL (0.15-1.2) 04/04/22 14:03 AST 20 U/L (0-32) 04/04/22 14:03 ALT 22 U/L (0-33) 04/04/22 14:03 Alkaline Phosphatase 102 U/L (35-105) 04/04/22 14:03 Creatine Kinase 205 U/L (26-192) H 04/04/22 14:03 Total Protein 8.2 g/dL (6.6-8.7) 04/04/22 14:03 Albumin 4.4 g/dL (3.5-5.2) 04/04/22 14:03 Globulin 3.8 g/dL (1.3-4.6) 04/04/22 14:03 Lipase 35 U/L (13-60) 04/04/22 14:03 Urine Color Yellow (Yellow) 04/04/22 13:41 Urine Appearance Sl hazy (CLEAR) A 04/04/22 13:41 Urine pH 5 (5-7) 04/04/22 13:41 Ur Specific [place] 1.030 (1.005-1.030) 04/04/22 13:41 Urine Protein Trace (Negative) 04/04/22 13:41 Urine Glucose (UA) Norm (Normal) 04/04/22 13:41 Urine Ketones Negative (Negative) 04/04/22 13:41 Urine Blood Neg (Negative) 04/04/22 13:41 Urine Nitrate Negative (Negative) 04/04/22 13:41 Urine Bilirubin Neg (Negative) 04/04/22 13:41 Urine Urobilinogen Norm mg/dL (Negative) 04/04/22 13:41 Ur Leukocyte Esterase Negative (Negative) 04/04/22 13:41 Urine RBC None /hpf (0-2) 04/04/22 13:41 Urine WBC 0-4 /hpf (0-5) H 04/04/22 13:41 Ur Eosinophil Smear 0 (0-0) 04/04/22 21:45 Ur Squamous Epith Cells 10-15 /hpf (0-5) H 04/04/22 13:41 Amorphous Sediment Not Reportable 04/04/22 13:41 Urine Bacteria 1+ /hpf (NONE) H 04/04/22 13:41 Hyaline Casts 0-4 /lpf H 04/04/22 13:41 Urine Mucus Trace /hpf 04/04/22 13:41 Urine Eosinophils No eosinophils seen 04/04/22 21:45 Ur Random Microalbumin 3 ug/dL (0-20) 04/04/22 21:45 Ur Random Sodium 71 mmol/L 04/04/22 21:45 Ur Random Potassium 14 mmol/L 04/04/22 18:55 Ur Random Chloride 28 mmol/L 04/04/22 18:55 Urine Creatinine 116 mg/dL (28-217) 04/04/22 21:45 Microalb/Creat Ratio 26 mg/dL (0-20) H 04/04/22 21:45 Urine Opiates Screen Negative ng/mL (Negative) 04/04/22 18:55 Ur Barbiturates Screen Negative ng/mL (Negative) 04/04/22 18:55 Ur Phencyclidine Scrn Negative ng/mL (Negative) 04/04/22 18:55 Ur Amphetamines Screen Positive ng/mL (Negative) H 04/04/22 18:55 U Benzodiazepines Scrn Negative ng/mL (Negative) 04/04/22 18:55 Urine Cocaine Screen Negative ng/mL (Negative) 04/04/22 18:55 U Marijuana (THC) Screen Negative ng/mL (Negative) 04/04/22 18:55 Vitals Last Vital Signs Temp 98.0 F 04/06/22 07:51 Pulse 71 04/06/22 07:51 Resp 17 04/06/22 07:51 BP 124/84 04/06/22 07:51 Pulse Ox 97 04/06/22 07:51 O2 Del Method 04/06/22 03:59 Discharge Plan Discharge Patient Disposition: Home Condition: Stable Prescriptions: Continued Atrovent HFA 17 mcg/actuation HFA aerosol inhaler 2 puff inhalation TID PRN (Reason: shortness of breath or wheezing) Qty: 12.9 5RF albuterol sulfate 2.5 mg /3 mL (0.083 %) solution for nebulization 2.5 mg inhalation Q6H PRN (Reason: shortness of breath or wheezing) Qty: 90 0RF albuterol sulfate 90 mcg/actuation HFA aerosol inhaler 2 inh INHALATION Q4H PRN (Reason: shortness of breath or wheezing) Qty: 18 5RF montelukast [Singulair] 10 mg tablet 10 mg PO DAILY Qty: 30 5RF eszopiclone [Lunesta] 2 mg tablet 2 mg PO ONCE PRN (Reason: sleep) Qty: 30 3RF aspirin 81 mg tablet,delayed release (DR/EC) 81 mg PO DAILY Qty: 90 3RF metoprolol tartrate 25 mg Tablet 25 mg PO DAILY Changed amlodipine 5 mg tablet 10 mg PO DAILY Qty: 30 5RF Held lisinopril 20 mg tablet 20 mg PO DAILY Qty: 30 5RF Hold Instructions: Resume on 04/10/22. Discontinued meloxicam 15 mg tablet 15 mg PO DAILY Qty: 30 3RF Rx Instructions: take 1 tablet daily Discharge Orders: Discharge Order (Routine); Ordered 04/06/22 Ordered By: Felipa Miles Referrals: Vince Hearn MD [Primary Care Provider] - 04/14/22 2:30 pm Patient Instructions: Acute Kidney Injury (DC), Cigarette Smoking and Your Health (GEN), Methamphetamine Use Disorder (DC), Opioid Safety, Quitting Smoking Discharge Attestations Time Spent in Discharge Care*: less than 30 min Quality Metrics Clinical Quality Measures [ No reported AMI, CVA or VTE this stay] Coding Level of Care Code Acute Code for [facility]wd Diagnoses Insomnia due to mental disorder F51.05 Hypokalemia E87.6 Acute renal failure N17.9 Anxiety about health F41.8 Amphetamine adverse reaction T43.625A Smoker F17.200 Morbid obesity with BMI of 40.0-44.9, adult E66.01; Z68.41 Hypertension I10 Asthma J45.41 Asthma complication type: with acute exacerbation Asthma persistence: persistent Asthma severity: moderate
[2022-04-06] MEDS: aspirin 81 mg EC Tablet PO (08:26)
[2022-04-06] MEDS: metoprolol tartrate 25 mg Tablet PO (08:26)
[2022-04-06] MEDS: montelukast sodium 10 mg Tablet PO (08:26)
[2022-04-06] MEDS: pantoprazole DR 40 mg Tablet PO (08:26)
[2022-04-06] MEDS: amlodipine 5 mg Tablet PO (08:26)
--- NOTE | 2022-04-06 08:43 | PM.PN ---
Subjective Subjective: No new complaints no diarrhea eating well Medications: Reviewed: Yes Vitals/I&O/Wt Last Vital Signs Temp 98.0 F 04/06/22 07:51 Pulse 71 04/06/22 07:51 Resp 17 04/06/22 07:51 BP 124/84 04/06/22 07:51 Pulse Ox 97 04/06/22 07:51 O2 Del Method 04/06/22 03:59 04/05/22 04/06/22 04/06/22 22:59 06:59 14:59 Intake Total 1115 / 2358.417 1120 / 3478.417 360 / 360 Output Total 1050 / 2700 850 / 3550 Balance 65 / -341.583 270 / -71.583 360 / 360 Weight last 48 hrs Weight 102.739 kg Weight 106.594 kg Physical Exam Narrative: Pleasant and cooperative Awake and alert S1, S2- per report Abdomen soft no edema Urinary Catheter Management: Curtis: Cath Placed During This Visit: yes Reason for Continuing Indwelling Catheter: Accurate Measurement of Urinary Output in Critically Ill Patients Urinary Catheter Date of Insertion: 04/04/22 Urinary Catheter Time of Insertion: 19:12 Data 04/06/22 05:02 04/06/22 05:02 A&P Assessment and plan (1) Acute renal failure: Plan 1. Acute kidney injury: Secondary to severe dehydration from vomiting and diarrhea. Baseline renal function is normal. Creatinine is 4.2 on presentation, improved to 1.0 today . Continue IV fluids at current rate. Hold MIGUE inhibitors 2. Hypertension: Blood pressure controlled, MIGUE inhibitor is on hold- can resume 3. Hypokalemia: Repleted 4. Metabolic acidosis : from CHARLEY , improved pt evaluated using audiovisual cart. Time spent 45 min Attestations Medical Necessity Statement*: Medical management Coding Level of Care Code Acute Code for [facility] Fwd Diagnoses Acute renal failure N17.9
[2022-04-06 10:44] VITALS: BP 124/84; PULSE 71; RESP 17; TEMP 36.7
[2022-04-07 08:49] LABS: Anti-Nuclear Antibody Pattern Nuclear, Homogeneous; Anti-Nuclear Antibody Screen POSITIVE (NEGATIVE); Anti-Nuclear Antibody Titer 1:40 titer
== END 2022-04-06 10:45 | disposition home or self-care (01) | DRG 683 ==
LOC: ER 18:04 → MEDSURG 19:21
PROVIDERS: Nurse Practitioner Family; Admitting Provider Internal Medicine; Emergency Provider Family Medicine; PCP Family Medicine Adult Medicine; Visit Provider Internal Medicine
DX: N17.9 Acute kidney failure, unspecified (principal); E87.20 Acidosis, unspecified; Z68.41 Body mass index [BMI] 40.0-44.9, adult; E86.0 Dehydration; I10 Essential (primary) hypertension; E87.6 Hypokalemia; F15.90 Other stimulant use, unspecified, uncomplicated; Z79.51 Long term (current) use of inhaled steroids; Z79.82 Long term (current) use of aspirin; F06.4 Anxiety disorder due to known physiological condition; M25.552 Pain in left hip; M25.551 Pain in right hip; E66.01 Morbid (severe) obesity due to excess calories; F17.200 Nicotine dependence, unspecified, uncomplicated; A08.4 Viral intestinal infection, unspecified; J45.40 Moderate persistent asthma, uncomplicated
CPT/HCPCS: 12345; 36415; 51702; 76770; 80048; 80053; 80306; 81001; 82044; 82436; 82550; 83605; 83690; 83735; 84100; 84133; 84300; 85025; 85999; 86038; 94640; 96372; 96374; 99285; C9113; J1644; J7030; Q3014

== ENCOUNTER 2024-08-18 10:13 | Emergency (ER) | payer SELFPAY ==
[2024-08-18 10:21] VITALS: BP 217/113; PULSE 111; RESP 24; TEMP 36.7; O2SAT 91; BMI 42.9
--- NOTE | 2024-08-18 10:25 | XR_ITS ---
WS: [id number] XR chest 1V portable [id number] REASON FOR EXAM: sob FINDINGS: The chest is unchanged compared to 03/12/2022. The heart and the mediastinum are within normal limits. Minimal calcified granulomatous disease bilaterally. No acute pulmonary parenchymal or pleural abnormality. Moderate degenerative spondylosis in the mid and lower thoracic spine. XR/XR chest 1V portable [id number] IMPRESSION: Stable chest with no acute abnormality.
[2024-08-18 10:30] VITALS: PULSE 89; RESP 18; O2SAT 92
--- NOTE | 2024-08-18 10:32 | W.ED.GENADLT ---
HPI - General Adult General: Chief complaint: Headache Stated complaint: fever, cough, GARCIA Time Seen by Provider: 08/18/24 10:21 Source: patient Mode of arrival: ambulatory Limitations: no limitations History of Present Illness: 48-year-old female who states that last 4 days she has been having cough congestion subjective fevers body aches and headache. States that her cough has been nonproductive but has been getting short of breath exacerbated with exertion. She has had wheezing states she has had lung issues in the past and is a smoker. She denies any chest pain denies any vomiting Associated symptoms: Reports dyspnea and headache(s); Deny chest pain, nausea, rash or vomiting Related Data Home Medications ?Medication ?Instructions ?Recorded ?Confirmed ibuprofen 200 mg tablet (Advil) 800 mg PO Q6H PRN Fever Or Pain 08/18/24 08/18/24 Previous Rx's ?Medication ?Instructions ?Recorded albuterol sulfate 90 mcg/actuation 2 inh inhalation Q6H PRN shortness 08/18/24 aerosol inhaler of breath or wheezing #8 grams cephalexin 500 mg capsule 500 mg PO TID 7 days #21 caps 08/18/24 prednisone 50 mg tablet 50 mg PO DAILY #5 tabs 08/18/24 Allergies Allergy/AdvReac Type Severity Reaction Status Date / Time No Known Allergies Allergy Verified 03/17/22 11:14 Review of Systems Const: Reports: body aches; Denies: chills or change in appetite Eyes: Denies: blurry vision or eye discomfort ENMT: Denies: throat pain or dental pain Card: Denies: chest pain Resp: Reports: dyspnea and non-productive cough GI: Denies: abdominal pain, nausea, vomiting or diarrhea : Denies: dysuria Musc: Denies: neck pain or back pain Skin/Breast: Denies: rash Neuro: Reports: headache(s) PFSH ED PFSH: Medical History 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 Hypokalemia Acute renal failure Anxiety about health Smoker Participant in health and wellness plan Sciatic leg pain Chronic hip pain, bilateral Morbid obesity with BMI of 40.0-44.9, adult Hypertension Osteoarthritis of both sacroiliac joints Asthma Knee pain FHx: cholecystectomy Surgical History H/O tubal ligation History of appendectomy Family History Mother Renal cell cancer Pancreatic cancer Asthma Social History Smoking and tobacco/nicotine status: heavy tobacco/nicotine user Quit status (tobacco/nicotine): has tried quititng Alcohol intake: never Substance/Drug Use: never Adopted: No Lives independently: Yes Household members: spouse Marital status: Number of children: 2 Number of grandchildren: 1 Highest education level completed: Some College, No Degree Female Reproductive History: Spontaneous abortions: No Physical Exam Const: COMMON NORMALS: patient oriented x3 HENMT: COMMON NORMALS: normocephalic and atraumatic HEAD & SCALP: normocephalic and atraumatic Eye: COMMON NORMALS: conjunctivae normal CONJUNCTIVA: Yes conjunctivae normal Neck/C-Spine: COMMON NORMALS: full ROM and supple Chest: COMMONS NORMALS: normal inspection of the chest Resp: COMMON NORMALS: No retractions and No use of accessory muscles AUSCULTATION: wheezes Cardio: COMMON NORMALS: regular rate, regular rhythm and No murmurs present (Cardio) RATE: regular rate RHYTHM: regular rhythm GI: COMMON NORMALS: Normal to inspection, nondistended, normoactive bowel sounds present, Soft to palpation, non-tender and no masses PALPATION: Yes Soft to palpation Extremity: COMMON NORMALS: normal to inspection and full ROM Neuro: COMMON NORMALS: patient oriented x3, moves all extremities and no focal motor deficits Psych: COMMON NORMALS: mental status grossly normal, Normal thought process present and cooperative THOUGHT PROCESS: Normal thought process present Skin: COMMON NORMALS: no rashes or lesions noted and no wounds GENERAL SKIN EXAM: no rashes or lesions noted Course Vital Signs: Vital signs: Vital Signs Temperature 98.1 F 08/18/24 10:21 Pulse Rate 92 08/18/24 12:53 Respiratory Rate 18 08/18/24 12:44 Blood Pressure 149/96 08/18/24 12:53 Pulse Oximetry 91 08/18/24 12:53 Oxygen Delivery Me thod Room Air 08/18/24 12:44 Oxygen Flow Rate 2 08/18/24 12:36 MDM - General Adult Medical Decision Making Patient presents here with cough dyspnea likely bronchitis imaging here shows no pneumonia she has no signs of pulmonary embolism she feels much improved after breathing treatment we will place her on an inhaler along with steroids will place her on Keflex as well she stable for discharge she is to follow-up with PCP she is return if worsening she understands agrees to plan. Medical Records I reviewed the patient's medical records. Lab Data I reviewed the patient's lab results. 08/18/24 11:42 08/18/24 11:42 Radiology Impressions Chest X-Ray 08/18/24 10:25 IMPRESSION: Stable chest with no acute abnormality. Laboratory Results WBC 8.63 10^3/uL (3.29-11.43) 08/18/24 11:42 RBC 4.97 10^6/uL (3.85-5.65) 08/18/24 11:42 Hgb 15.60 g/dL (11.27-16.99) 08/18/24 11:42 Hct 46.3 % (36-47) 08/18/24 11:42 MCV 93.2 fl (85-98) 08/18/24 11:42 MCH 31.4 pg (27-33) 08/18/24 11:42 MCHC 33.7 g/dL (30-55) 08/18/24 11:42 RDW 12.8 % (12.1-15.1) 08/18/24 11:42 Plt Count 238 10^3/cmm (157-399) 08/18/24 11:42 MPV 10.6 fL (7.4-10.4) H 08/18/24 11:42 Neut % (Auto) 72.8 % 08/18/24 11:42 Lymph % (Auto) 16.8 % 08/18/24 11:42 [place] % (Auto) 6.1 % 08/18/24 11:42 Eos % (Auto) 3.2 % 08/18/24 11:42 Baso % (Auto) 0.8 % 08/18/24 11:42 Neut # (Auto) 6.27 10^3/uL (1.8-7.7) 08/18/24 11:42 Lymph # (Auto) 1.5 10^3/uL (0.8-4.8) 08/18/24 11:42 [place] # (Auto) 0.5 10^3/uL (0.2-0.9) 08/18/24 11:42 Eos # (Auto) 0.3 10^3/uL (0.0-0.8) 08/18/24 11:42 Baso # (Auto) 0.1 10^3/uL (0.0-0.1) 08/18/24 11:42 Nucleated RBC % (auto) 0 % 08/18/24 11:42 Nucleated RBCs # 0.0 /100WBC 08/18/24 11:42 Sodium 139 mmol/L (136-145) 08/18/24 11:42 Potassium 3.4 mmol/L (3.5-5.1) L 08/18/24 11:42 Chloride 100 mmol/L (98-107) 08/18/24 11:42 Carbon Dioxide 25 mmol/L (22-29) 08/18/24 11:42 Anion Gap 17.4 (5-19) 08/18/24 11:42 BUN 6 mg/dL (6-20) 08/18/24 11:42 Creatinine 0.6 mg/dL (0.5-0.9) 08/18/24 11:42 GFR Calculation 107.2 mL/min (90-130) 08/18/24 11:42 Glucose 114 mg/dL (65-115) 08/18/24 11:42 Calculated Osmolality 286 mOsm/kg (285-295) 08/18/24 11:42 Calcium 9.4 mg/dL (8.5-10.5) 08/18/24 11:42 Total Bilirubin 0.4 mg/dL (0.15-1.2) 08/18/24 11:42 AST 30 U/L (0-32) 08/18/24 11:42 ALT 35 U/L (0-33) H 08/18/24 11:42 Alkaline Phosphatase 106 U/L (35-105) H 08/18/24 11:42 NT-Pro-B Natriuret Pep 294 pg/mL (0-125) H 08/18/24 11:42 Total Protein 7.7 g/dL (6.6-8.7) 08/18/24 11:42 Albumin 3.9 g/dL (3.5-5.2) 08/18/24 11:42 Globulin 3.8 g/dL (1.3-4.6) 08/18/24 11:42 Influenza A (PCR) Negative (Negative) 08/18/24 11:58 Influenza Type B (PCR) Negative (Negative) 08/18/24 11:58 RSV (PCR) Negative (Negative) 08/18/24 11:58 SARS-CoV-2 (PCR) Negative (Negative) 08/18/24 11:58 All radiology interpretation(s) finalized by discharge EKG Data EKG 1: I personally reviewed and interpreted this EKG as follows: EKG interpretation date: 08/18/24 EKG interpretation time: 11:04 Interpretation: sinus tach hr [address] elevation qrs 86 qtc 408 Computer generated interpretation: Chest X-Ray 08/18/24 10:25 IMPRESSION: Stable chest with no acute abnormality. Discharge Plan Discharge Patient Disposition: Home Clinical Impression: Chronic bronchitis with acute exacerbation Condition: Stable Prescriptions: New cephalexin 500 mg capsule 500 mg PO TID 7 Days Qty: 21 0RF prednisone 50 mg tablet 50 mg PO DAILY Qty: 5 0RF albuterol sulfate 90 mcg/actuation HFA aerosol inhaler 2 inh INHALATION Q6H PRN (Reason: shortness of breath or wheezing) Qty: 8 0RF No Action ibuprofen [Advil] 200 mg Tablet 800 mg PO Q6H PRN (Reason: Fever Or Pain) Discharge Orders: Discharge ED (Routine); Ordered 08/18/24 Ordered By: Renzo Rogers Referrals: Vince Hearn MD [Primary Care Provider, Family Practice] - 4-7 days Discharge Diet: Advance as tolerated Discharge Activity: Resume usual activity Patient Instructions: Acute Bronchitis (ED) Print Language: Malawian Coding Level of Care Code ED Administrative Operations Coordinator for Jeremy Cherry
--- OUTSIDE RECORDS SUMMARY | 2024-08-18 10:32 | XMS_ITS | Encounter Summary ---
Author Organization [facility] Address [address] [place] [address] Care Team Providers Care Cork Wirer Name Role Phone Unavailable Primary Care Provider Unavailabl e Encounter Details Date Type Department Care Team (Late st Contact Info) Description 11/17/2003 Outpatient Historical 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
--- OUTSIDE RECORDS SUMMARY | 2024-08-18 10:32 | XMS_ITS | Encounter Summary ---
Author Organization [facility] Address [address] [place] [address] Care Team Providers Care Organizational Development Director Name Role Phone Unavailable Primary Care Provider Unavailabl e Encounter Details Date Type Department Care Team (Latest Contact Info) Description 02/19/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
--- OUTSIDE RECORDS SUMMARY | 2024-08-18 10:32 | XMS_ITS | Clinical Summary ---
Author Organization [facility] Address [address] Borges: Epic Prelude ADT FOSTER CHRISTINE [address] Care Team Providers Care Asset Management Analyst Name Role Phone Unavailable Primary Care Provider Unavailabl e Allergies No known active allergies Medications albuterol sulfate 90 mcg/Actuation inhaler Take 2 Puffs by inhalation every 4 hours as needed for Shortness of Breath or Wheezing. 18 Gram 0 7 Active naproxen (NAPROSYN) 500 mg tablet Take 1 Tablet (500 mg) by mouth 2 times daily with meals. 20 Tablet None 8 Active crutchesIndicati ons:Sprain of right ankle, unspecified ligament, initial encounter Type: axillary If over 350 lbs, requires heavy duty.Length of Need: 99 months. 1 Each 0 8 Active Active Problems Problem Noted Date Diagnosed Date Tobacco use 06/25/2015 Tendon laceration 10/26/2010 Insomnia, unspecified Immunizations Immunization Administration Dates Next Due (ADACEL/BOOSTRIX)(10 YR UP) TDAP VACCINE, 0.5ML, IM 10/22/2010 Family History Medical History Relation Name Comments Healthy Brother Healthy Daughter 1 Healthy Daughter 2 Respiratory Disease Maternal Grandfather Unknown Maternal Grandmother Cancer Mother kidney and panc reatic Respiratory Disease Mother alpha-1 antitrypsin Breast Cancer Other paternal cousi n and aunt Ovarian Cancer Other paternal aunt Unknown Paternal Grandfather Cancer Paternal Grandmother skin Heart Disease Paternal Grandmother Healthy Sister Relation Name Status Comments Brother Alive Daughter 1 Alive Daughter 2 Alive Father Alive Maternal Grandfather Maternal Grandmother Mother Other Paternal Grandfather Paternal Grandmother Sister Alive Social History Tobacco Use Types Packs/Day Years Used Date Smoking Tobacco: Every Day Cigarettes Smokeless Tobacco: Never Alcohol Use Standard Drinks/Week Comments No 0 (1 standard drink = 0.6 oz pur e alcohol) Comments Unknown Sex and Gender Information Value Date Recorded Sex Assigned at Not on file Legal Sex Female 10:47 AM FIRER KILN Gender Identity Not on file Sexual Orientation Not on file Last Filed Vital Signs Vital Sign Reading Time Taken Comments Blood Pressure 157/106 03/10/2017 2:37 PM FIRER KILN Pulse 75 03/10/2017 2:38 PM FIRER KILN Temperature 36.6 C (97.9 F) 03/10/2017 12:38 PM FIRER KILN Respiratory Rate 17 03/10/2017 12:38 PM FIRER KILN Oxygen Saturation - - Inhaled Oxygen Concentration - - Weight 93 kg (205 lb) 03/10/2017 12:38 PM FIRER KILN Height 162.6 cm (5' 4 ) 03/10/2017 12:38 PM FIRER KILN Body Mass Index 35.19 03/10/2017 12:38 PM FIRER KILN Plan of Treatment Health Maintenance Due Date Last Done Comments HEPATITIS B VACCINES (1 of 3 - 19+ 3-dose series) 09/08/1995 BREAST CANCER SCREENING 2016 PAP SMEAR 06/24/2018 06/25/2015, 07/02/2009 CERVICAL CANCER SCREENING 06/24/2020 HPV/Cotest (21-29) 06/24/2020 06/25/2015 HPV/Cotest (30-65) 06/24/2020 06/25/2015 DTAP/TDAP/TD VACCINES (2 - Td or Tdap) 10/22/2020 COLORECTAL SCREENING 2021 Colorectal Cancer Screening 2021 FIT-DNA Q 3 years 2021 FIT/FOBT Q 1 year 2021 Flex Sig/CT Colonography Q 5 years 2021 INFLUENZA VACCINE (#1) 2024 Procedures Procedure Name Priority Date/Time Associated Diagnosis Comments CERV/VAG CYTOPATH, THIN PREP COOK HELPER AND HPV Routine 06/25/2015 11:26 AM CDT from Last 3 Months or Most Recently Relevant to Health Maintenance Results * CERV/VAG CYTOPATH, THIN PREP COOK HELPER AND HPV (06/25/2015 11:26 AM CDT) CASE REPORT Gynecologic Cytology Report Case: [id number] Authorizing Provider: Veda Stewart NP Collected: 06/25/2015 1126 Ordering Location: [facility] Received: 06/29/2015 1127 First Screen: Meryl Elizalde Specimen: LB PAP IM AND HPV PROT, Endocervical 07/06/2015 3:07 PM CDT [facility] Customer Consulting Manager Specimen Adequacy Satisfactory for evaluation, endocervical/anglin sformation zone component absent 07/06/2015 3:07 PM CDT [facility] Customer Consulting Manager General Categorization Negative For Intraepithelial Lesion Or Malignancy 07/06/2015 3:07 PM CDT [facility] Interpretation Negative For Intraepithelial Lesion Or Malignancy 07/06/2015 3:07 PM CDT [facility] Customer Consulting Manager Previous Pap Date 07/02/09 07/06/2015 3:07 PM CDT [facility] Customer Consulting Manager Prev Pap Result Comment WNL 07/06/2015 3:07 PM CDT [facility] GynLMP 05/27/15 07/06/2015 3:07 PM CDT [facility] Customer Consulting Manager Educational Note 07/06/2015 3:07 PM CDT [facility] Endocervical (Endocervical) 06/25/2015 11:26 AM CDT 06/29/2015 11:27 AM CDT us Veda Stewart NP PATHOLOGY/CYTOLOGY ORDERABLES Fi nal Result [facility] CLIA# [id number] [address] [place] [address] [facility] CLIA # [id number] [address] [facility] [place] [address] from Last 3 Months or Most Recently Relevant to Health Maintenance
--- OUTSIDE RECORDS SUMMARY | 2024-08-18 10:32 | XMS_ITS | Encounter Summary ---
Author Organization [facility] Address [address] [place] [address] Care Team Providers Care Credit Administration Officer Name Role Phone Unavailable Primary Care Provider Unavailabl e Encounter Details Date Type Department Care Team (Late st Contact Info) Description 10/31/2003 Outpatient Historical HIS [facility] [address] Brayan Abreu, DO [address] [place] [address] Social History Tobacco Use Types Packs/Day Years Used Date Smoking Tobacco: Never Assessed Comments Unknown Sex and Gender Information Value Date Recorded Sex Assigned at Not on file Legal Sex Female 2:59 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
--- OUTSIDE RECORDS SUMMARY | 2024-08-18 10:32 | XMS_ITS | Clinical Summary ---
Author Organization [facility] Address [address] [place] [place] [address] Care Team Providers Care Loading Unit Tool Setter Name Role Phone Unavailable Primary Care Provider Unavailabl e Allergies No known active allergies Medications albuterol HFA 90 mcg inhaler Take 2 Puffs by inhalation every 4 hours as needed for Shortness of Breath or Wheezing. 18 Gram 7 Active naproxen (NAPROSYN) 500 mg tablet Take 1 Tablet (500 mg) by mouth 2 times daily with meals. 20 Tablet None 8 Active crutchesIndicati ons:Sprain of right ankle, unspecified ligament, initial encounter Type: axillary If over 350 lbs, requires heavy duty. Length of Need: 99 months. 1 Each 8 Active Active Problems Problem Noted Date [...] Used Date Smoking Tobacco: Every Day Cigarettes 1 20 Smokeless Tobacco: Never Alcohol Use Standard Drinks/Week Comments No 0 (1 standard drink = 0.6 oz pur e alcohol) Comments No Sex and Gender Information Value Date Recorded Sex Assigned at Not on file Legal Sex Female 2:59 AM SCREENING UNIT REGISTERED NURSE Gender Identity Not on file Sexual Orientation Not on file Occupation Industry Job Start Date Job End Date Not on file Not on file Not on file Not on file Last Filed Vital Signs Vital Sign Reading Time Taken Comments Blood Pressure 157/106 03/10/2017 2:37 PM SCREENING UNIT REGISTERED NURSE Pulse 75 03/10/2017 2:38 PM SCREENING UNIT REGISTERED NURSE Temperature 36.6 C (97.9 F) 03/10/2017 12:38 PM SCREENING UNIT REGISTERED NURSE Respiratory Rate 17 03/10/2017 12:38 PM SCREENING UNIT REGISTERED NURSE Oxygen Saturation 96% 03/10/2017 2:38 PM SCREENING UNIT REGISTERED NURSE Inhaled Oxygen Concentration - - Weight 93 kg (205 lb) 03/10/2017 12:38 PM SCREENING UNIT REGISTERED NURSE Height 162.6 cm (5' 4 ) 03/10/2017 12:38 PM SCREENING UNIT REGISTERED NURSE Body Mass Index 35.19 03/10/2017 12:38 PM SCREENING UNIT REGISTERED NURSE Plan of Treatment Health Maintenance Due Date Last Done Comments HEPATITIS B VACCINES (1 of 3 - 19+ 3-dose series) 09/08/1995 BREAST CANCER SCREENING 2016 PAP SMEAR 06/24/2018 06/25/2015, 07/02/2009 CERVICAL CANCER SCREENING 06/24/2020 HPV/Cotest (21-29) 06/24/2020 06/25/2015, 07/02/2009 HPV/Cotest (30-65) 06/24/2020 06/25/2015, 07/02/2009 DTAP/TDAP/TD VACCINES (2 - Td or Tdap) 10/22/2020 COLORECTAL SCREENING 2021 Colorectal Cancer Screening 2021 FIT-DNA Q 3 years 2021 FIT/FOBT Q 1 year 2021 Flex Sig/CT Colonography Q 5 years 2021 INFLUENZA VACCINE (#1) 2024 Procedures Procedure Name Priority Date/Time Associated Diagnosis Comments CERV/VAG CYTOPATH, THIN PREP MUMPS DEVELOPER AND HPV Routine 06/25/2015 11:26 AM CDT Encounter for screening for malignant neoplasm of cervix from Last 3 Months or Most Recently Relevant to Health Maintenance Results * CERV/VAG CYTOPATH, THIN PREP MUMPS DEVELOPER AND HPV (06/25/2015 11:26 AM CDT) CASE REPORT Gynecologic Cytology Report Case: [id number] Authorizing Provider: Veda Stewart NP Collected: 06/25/2015 1126 Ordering Location: [facility] Received: 06/29/2015 1127 First Screen: Meryl Elizalde Specimen: LB PAP IM AND HPV PROT, Endocervical 07/06/2015 3:07 PM CDT [facility] Folding Machine Operator Specimen Adequacy Satisfactory for evaluation, endocervical/anglin sformation zone component absent 07/06/2015 3:07 PM CDT [facility] Folding Machine Operator General Categorization Negative For Intraepithelial Lesion Or Malignancy 07/06/2015 3:07 PM CDT [facility] Folding Machine Operator Interpretation Negative For Intraepithelial Lesion Or Malignancy 07/06/2015 3:07 PM CDT [facility] Verified by Meyrl Elizalde on 07/06/2015 at 1507 CDT Comment: Routine follow-up is suggested. Folding Machine Operator Previous Pap Date 07/02/09 07/06/2015 3:07 PM CDT [facility] Folding Machine Operator Prev Pap Result Comment WNL 07/06/2015 3:07 PM CDT [facility] GynLMP 05/27/15 07/06/2015 3:07 PM CDT [facility] Folding Machine Operator Educational Note 07/06/2015 3:07 PM T [facility] Comment: Gynecological cytology is a screening procedure subject to both false negative and false positive results. It is most reliable when a satisfactory sample is obtained on a regular repetitive basis. Results must be interpreted in the context of historic and current clinical information. Recommend patient management according to the 2012 ASCCP Consensus Guidelines, ([place]: Cancer J Clin, 62(3); 147-172,2012) EMBEDDED IMAGE 07/06/2015 3:07 PM CDT [facility] Endocervical (Endocervical) 06/25/2015 11:26 AM CDT 06/29/2015 11:27 AM CDT Veda Stewart INSURANCE COUNSEL PATHOLOGY/CYTOLOGY ORDERABLES Fi nal Result [facility]# [id number] [address] [place] [address] from Last 3 Months or Most Recently Relevant to Health Maintenance Insurance [facility] Advance Directives For more information, please contact: [phone] * Full Code (Latest Code Status on File) Date Activated Date Inactivated Comments 10/27/2010 2:02 PM 10/27/2010 5:38 PM * Full Code Date Activated Date Inactivated Comments 10/27/2010 12:12 PM 10/27/2010 2:02 PM
--- OUTSIDE RECORDS SUMMARY | 2024-08-18 10:33 | XMS_ITS | Encounter Summary ---
Author Organization [facility] Address [address] [place] [address] Care Team Providers Care Gasoline Attendant Name Role Phone Unavailable Primary Care Provider Unavailabl e Encounter Details Date Type Department Care Team (Latest Contact Info) Description 09/13/2004 Outpatient Historical [facility] David Medina MD NO ADDRESS ON FILE SUPERVIS OTHER NORMAL PREG (Primary Dx) Social History Tobacco Use Types Packs/Day Years Used Date Smoking Tobacco: Never Assessed Comments Unknown Sex and Gender Information Value Date Recorded Sex Assigned at Not on file Legal Sex Female 2:59 AM 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
--- OUTSIDE RECORDS SUMMARY | 2024-08-18 10:33 | XMS_ITS | Encounter Summary ---
Author Organization [facility] Address [address] [place] [address] Care Team Providers Care Assistant Shift Supervisor Name Role Phone Unavailable Primary Care Provider Unavailabl e Encounter Details Date Type Department Care Team (Latest Contact Info) Description 03/25/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
--- OUTSIDE RECORDS SUMMARY | 2024-08-18 10:33 | XMS_ITS | Patient Health Record ---
Author Organization [facility] Address [address] [place] [address] Care Team Providers Care Assistant Cook Name Role Phone Jenniffer Calvin Primary Care Provider [phone] Allergies No Known Allergies Reason For Referral No Information Medications Medication SIG (Take, Route, Frequency, Duration) Notes Start Date End Date Status ProAir HFA 108 (90 Base) MCG/ACT Aerosol Solution 2 puffs as needed Inhalation every 4 hrs; Duration: 30 days Active Chlorthalidone 25 MG Tablet 1 tablet in the morning with food Orally Once a day; Duration: 30 day(s) 09/21/2020 Active Anoro Ellipta 62.5-25 MCG/INH Aerosol Powder Breath Activated 1 puff Inhalation Once a day; Duration: 30 days Active Valsartan 80 MG Tablet 1 tablet Orally O nce a day; Duration: 30 day(s) 12/24/2020 Active Atorvastatin Calcium 20 MG Tablet 1 tablet Orally Once a day at bedtime; Duration: 30 days 09/22/2020 Active Social History Tobacco Use: Social History Observation Description Date Details (start date - stop date) Current Smoker NA - NA Social History Depression Screening Social Info Question Answer Notes PHQ-9 Little interest or pleasure in doing thin gs Not at all Feeling down, depressed, or hopeless Not at all Trouble falling or staying asleep, or sleeping t oo much Not at all Feeling tired or having little energy Not at all Poor appetite or overeating Not at all Feeling bad about yourself, or that you are a failure, or have let yourself or your family down Not at all Trouble concentrating on thi ngs, such as reading the newspaper or watching television Not at all Moving or speaking so slowly that other people could have noticed. Or the opposite ? being so fidgety or restless that you have been moving around a lot more than usual Not at all Thoughts that you would be b francisco off , or of hurting yourself in some way Not at all Total Score 0 Drugs/Alcohol: Social Info Question Answer Notes Alcohol Screen (Audit-C) Did you have a drink containing alcohol in the past year? No Points 0 Interpretation Negative Drugs Have you used drugs other than those for medical reasons in the past 12 months? No Caffeine Intake: more than 4 cups per day Tobacco Use: Social Info Question Answer Notes xTobacco Use/Smoking Are you a current smoker How often do you smoke cigarettes? every day How many cigarettes a day do you smoke? 11-20 How soon after you wake up do you smoke your first cigarette? within 5 minutes Are you interested in quitting? Thinking about quitting Tobacco use other than smoking: Are you an other tobac co user? No Additional Details Category Social Info Options Details Drugs/Alcohol: Do you smoke marijuana? De nies Do you drink alcohol? No Section Notes: 09/21/20 Age of onset smoking was 18yo with smoking history of 27pack year history. 09/21/20 Age of onset smoking was 18yo with smoking history of 27pack year history. 09/21/20 Age of onset smoking was 18yo with smoking history of 27pack year history. Problems Problem Type SNOMED Code ICD Code Onset Dates Problem Status W/U Status Risk Notes Problem Essential hypertension (83132527) Essential hypertension (I10) Active confirmed Problem COPD - Chronic obstructive pulmonary disease (90044343) Chronic obstructive pulmonary disease, unspecified COPD type (J44.9) Active confirmed Plan Of Treatment No Information Insurance Providers Payer Name Payer Address Payer Phone Subscriber Number Group Number Insured Name Patient Relationship to Insured Coverage Start Date Coverage End Date [employer] [address] [address] [place] [address] [id number] Anita Rich Self - patient is the insured Medications Administered Medication Instructions Date of Administration Dosage Notes Albuterol 09/21/2020 Medical (General) History Medical History History ICD Code Essential hypertension; Manual cuff 141/ 96, her cuff 136/93 on 12/24/20 COPD Surgical History Surgery Date(Month/Year) cholecystectomy 2007 appendectomy 2004 Hospitalization History Reason Date(Month/Year) acute kidney failure 2009 see surgeries above
--- OUTSIDE RECORDS SUMMARY | 2024-08-18 10:33 | XMS_ITS | Encounter Summary ---
Author Organization [facility] Address [address] [place] [address] Care Team Providers Care Junior Graphic Designer Name Role Phone Unavailable Primary Care Provider Unavailabl e Encounter Details Date Type Department Care Team (Latest Contact Info) Description 07/01/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
--- OUTSIDE RECORDS SUMMARY | 2024-08-18 10:33 | XMS_ITS | Encounter Summary ---
Author Organization [facility] Address [address] [place] [address] Care Team Providers Care Director Of Operations Home Health Name Role Phone Unavailable Primary Care Provider Unavailabl e Encounter Details Date Type Department Care Team (Latest Contact Info) Description 09/21/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
--- OUTSIDE RECORDS SUMMARY | 2024-08-18 10:33 | XMS_ITS | Encounter Summary ---
Author Organization [facility] Address [address] [place] [address] Care Team Providers Care Can Technician Name Role Phone Unavailable Primary Care Provider Unavailabl e Encounter Details Date Type Department Care Team (Late st Contact Info) Description 12/27/2004 Outpatient Historical [facility] [place] [address] Social History Tobacco Use Types Packs/Day Years Used Date Smoking Tobacco: Never Assessed Comments Unknown Sex and Gender Information Value Date Recorded Sex Assigned at Not on file Legal Sex Female 2:59 AM SENIOR APPLICATIONS ANALYST Gender Identity Not on file Sexual Orientation Not on file documented as of this encounter Plan of Treatment Not on file documented as of this encounter Visit Diagnoses Not on filedocumented in this encounter
--- OUTSIDE RECORDS SUMMARY | 2024-08-18 10:33 | XMS_ITS | Encounter Summary ---
Author Organization [facility] Address [address] [place] [address] Care Team Providers Care Learning Disabilities Specialist Name Role Phone Unavailable Primary Care Provider Unavailabl e Encounter Details Date Type Department Care Team (Late st Contact Info) Description 03/02/2004 Outpatient Historical [facility] David Medina MD NO ADDRESS ON FILE Social History Tobacco Use Types Packs/Day Years Used Date Smoking Tobacco: Never Assessed Comments Unknown Sex and Gender Information Value Date Recorded Sex Assigned at Not on file Legal Sex Female 2:59 AM LACQUER MAKER Gender Identity Not on file Sexual Orientation Not on file documented as of this encounter Plan of Treatment Not on file documented as of this encounter Procedures Procedure Name Priority Date/Time Associated Diagnosis Comments HIV DETECTION W/REFLX CONFIRMATION Routine 03/02/2004 11:25 AM LACQUER MAKER HEPATITIS B SURFACE ANTIGEN Routine 03/02/2004 11:25 AM LACQUER MAKER RPR Routine 03/02/2004 11:25 AM LACQUER MAKER documented in this encounter Results * RPR (03/02/2004 11:25 AM LACQUER MAKER) RPR Non-Reactiv e Non-Reacti ve INTERFACE SYSTEM 03/02/2004 11:2 5 AM LACQUER MAKER us David Medina MD CHEMISTRY ORDERABLES Final Res ult INTERFACE SYSTEM Refer to clinic/hospital department * HIV ANTIBODY W/REFLX CONFIRMATION (03/02/2004 11:25 AM LACQUER MAKER) HIV-1 AND 2 ABS See Sep Report INTERFACE SYSTEM 03/02/2004 11:2 5 AM LACQUER MAKER us David Medina MD CHEMISTRY ORDERABLES Final Res ult Performing Organization Address [facility] Phone Number INTERFACE SYSTEM Refer to clinic/hospital department * HEPATITIS B SURFACE ANTIGEN (03/02/2004 11:25 AM LACQUER MAKER) HEPATITIS B SURFACE AG Negative INTERFACE SYSTEM 03/02/2004 11:2 5 AM LACQUER MAKER us David Medina MD CHEMISTRY ORDERABLES Final Res ult Performing Organization Address [facility] de Phone Number INTERFACE SYSTEM Refer to clinic/hospital department documented in this encounter Visit Diagnoses Not on filedocumented in this encounter
--- OUTSIDE RECORDS SUMMARY | 2024-08-18 10:33 | XMS_ITS | Encounter Summary ---
Author Organization [facility] Address [address] [place] [address] Care Team Providers Care Batch Heat Treat Operator Name Role Phone Unavailable Primary Care Provider Unavailabl e Encounter Details Date Type Department Care Team (Latest Contact Info) Description 07/22/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
--- OUTSIDE RECORDS SUMMARY | 2024-08-18 10:33 | XMS_ITS | Encounter Summary ---
Author Organization [facility] Address [address] [place] [address] Care Team Providers Care Utility Bill Collector Name Role Phone Unavailable Primary Care Provider Unavailabl e Encounter Details Date Type Department Care Team (Late st Contact Info) Description 01/04/2007 Outpatient Historical [facility] Medicine [address] [place] [address] Chelita Eduardo MD [address] [place] [phone] Social History Tobacco Use Types Packs/Day Years Used Date Smoking Tobacco: Never Assessed Comments Unknown Sex and Gender Information Value Date Recorded Sex Assigned at Not on file Legal Sex Female 2:59 AM VOCATIONAL ADVISER Gender Identity Not on file Sexual Orientation Not on file documented as of this encounter Plan of Treatment Not on file documented as of this encounter Visit Diagnoses Not on filedocumented in this encounter
--- OUTSIDE RECORDS SUMMARY | 2024-08-18 10:33 | XMS_ITS | Encounter Summary ---
Author Organization [facility] Address [address] [place] [address] Care Team Providers Care Envelope Folder Name Role Phone Unavailable Primary Care Provider Unavailabl e Encounter Details Date Type Department Care Team (Latest Contact Info) Description 03/02/[address] [place] [phone] David Medina MD NO ADDRESS ON FILE SUPERVIS OTHER NORMAL PREG (Primary Dx) Social History Tobacco Use Types Packs/Day Years Used Date Smoking Tobacco: Never Assessed Comments Unknown Sex and Gender Information Value Date Recorded Sex Assigned at Not on file Legal Sex Female 2:59 AM ENVIRONMENTAL SAMPLING TECHNICIAN Gender Identity Not on file Sexual Orientation Not on file documented as of this encounter Plan of Treatment Not on file documented as of this encounter Visit Diagnoses Diagnosis Supervision of other normal - Primary documented in this encounter
--- OUTSIDE RECORDS SUMMARY | 2024-08-18 10:33 | XMS_ITS | Encounter Summary ---
Author Organization [facility] Address [address] [place] [address] Care Team Providers Care Foreign Exchange Dealer Name Role Phone Unavailable Primary Care Provider Unavailabl e Encounter Details Date Type Department Care Team (Latest Contact Info) Description 08/19/[address] [place] [phone] David Medina MD NO ADDRESS ON FILE SUPERVIS OTHER NORMAL PREG (Primary Dx) Social History Tobacco Use Types Packs/Day Years Used Date Smoking Tobacco: Never Assessed Comments Unknown Sex and Gender Information Value Date Recorded Sex Assigned at Not on file Legal Sex Female 2:59 AM BELT NOTCHER Gender Identity Not on file Sexual Orientation Not on file documented as of this encounter Plan of Treatment Not on file documented as of this encounter Visit Diagnoses Diagnosis Supervision of other normal - Primary documented in this encounter
--- OUTSIDE RECORDS SUMMARY | 2024-08-18 10:33 | XMS_ITS | Encounter Summary ---
Author Organization [facility] Address [address] [place] [address] Care Team Providers Care Energy Conservation Director Name Role Phone Unavailable Primary Care Provider Unavailabl e Encounter Details Date Type Department Care Team (Latest Contact Info) Description 08/04/[address] [place] [address] Samson Guardado MD [address] [place] [phone] SUPERVIS OTHER NORMAL PREG (Primary Dx) Social History Tobacco Use Types Packs/Day Years Used Date Smoking Tobacco: Never Assessed Comments Unknown Sex and Gender Information Value Date Recorded Sex Assigned at Not on file Legal Sex Female 2:59 AM JOY LOADING MACHINE OPERATOR Gender Identity Not on file Sexual Orientation Not on file documented as of this encounter Plan of Treatment Not on file documented as of this encounter Visit Diagnoses Diagnosis Supervision of other normal - Primary documented in this encounter
--- OUTSIDE RECORDS SUMMARY | 2024-08-18 10:33 | XMS_ITS | Encounter Summary ---
Author Organization [facility] Address [address] [place] [address] Care Team Providers Care High School Home Economics Teacher Name Role Phone Unavailable Primary Care Provider Unavailabl e Encounter Details Date Type Department Care Team (Latest Contact Info) Description 03/02/2004 Outpatient Historical [facility] David Medina MD NO ADDRESS ON FILE SCREENING MAL NEOP-CERVIX (Primary Dx) Social History Tobacco Use Types Packs/Day Years Used Date Smoking Tobacco: Never Assessed Comments Unknown Sex and Gender Information Value Date Recorded Sex Assigned at Not on file Legal Sex Female 2:59 AM FURNACE ERECTOR Gender Identity Not on file Sexual Orientation Not on file documented as of this encounter Plan of Treatment Not on file documented as of this encounter Visit Diagnoses Diagnosis Screening for malignant neoplasm of the cervix- Primary documented in this encounter
--- OUTSIDE RECORDS SUMMARY | 2024-08-18 10:33 | XMS_ITS | Encounter Summary ---
Author Organization [facility] Address [address] [place] [address] Care Team Providers Care Sack Sewer Machine Name Role Phone Unavailable Primary Care Provider Unavailabl e Encounter Details Date Type Department Care Team (Latest Contact Info) Description 09/15/2009 Inpatient Historical [facility] [address] [place] [address] Bryson Herndon, DO [address] [place] [address] Dehydration (Primary Dx); Acute Kidney Failure, Unspecified; Tobacco Use Disorder; Heat Exhaustion due to Salt Depletion; Accident due to Excessive Heat, Man-Made Origin; Place of Occurrence, Industrial Places and Premises Social History Tobacco Use Types Packs/Day Years Used Date Smoking Tobacco: Every Day Alcohol Use Standard Drinks/Week Comments Yes 0 (1 standard drink = 0.6 oz pur e alcohol) sometimes Comments No Sex and Gender Information Value Date Recorded Sex Assigned at Not on file Legal Sex Female 2:59 AM DRY HOUSE OPERATOR Gender Identity Not on file Sexual Orientation Not on file documented as of this encounter Plan of Treatment Not on file documented as of this encounter Visit Diagnoses Diagnosis Dehydration- Primary Acute kidney failure, unspecified Tobacco use disorder Heat exhaustion due to salt depletion Accident due to excessive heat, man-made origin Place of occurrence, industrial places and premises documented in this encounter
--- OUTSIDE RECORDS SUMMARY | 2024-08-18 10:33 | XMS_ITS | Encounter Summary ---
Author Organization [facility] Address [address] [place]: Epic Prelude ADT [place]INE [address] Care Team Providers Care Spot Welder Name Role Phone Unavailable Primary Care Provider Unavailabl e Encounter Details Date Type Department Care Team (Late st Contact Info) Description 12/16/2004 Outpatient Historical Brayan Abreu, DO [address] [place] [address] Social History Tobacco Use Types Packs/Day Years Used Date Smoking Tobacco: Never Assessed Comments Unknown Sex and Gender Information Value Date Recorded Sex Assigned at Not on file Legal Sex Female 2:59 AM FIBERGLASS QUALITY TECHNICIAN Gender Identity Not on file Sexual Orientation Not on file documented as of this encounter Plan of Treatment Not on file documented as of this encounter Visit Diagnoses Not on filedocumented in this encounter
--- OUTSIDE RECORDS SUMMARY | 2024-08-18 10:33 | XMS_ITS | Encounter Summary ---
Author Organization [facility] Address [address] [place] [address] Care Team Providers Care Paint Tinter Name Role Phone Unavailable Primary Care Provider Unavailabl e Encounter Details Date Type Department Care Team (Late st Contact Info) Description 12/15/2004 Inpatient Historical [facility] [address] [place] [address] Brayan Abreu D, DO [address] [place] [address] CALC GB/CBD,GB INFEC NEC,NO OBSTR (Primary Dx); TOBACCO USE DISORDER Social History Tobacco Use Types Packs/Day Years Used Date Smoking Tobacco: Never Assessed Comments Unknown Sex and Gender Information Value Date Recorded Sex Assigned at Not on file Legal Sex Female 2:59 AM BRAND INSPECTOR Gender Identity Not on file Sexual Orientation Not on file documented as of this encounter Plan of Treatment Not on file documented as of this encounter Visit Diagnoses Diagnosis Calculus of gallbladder and bile duct with other cholecystitis, without mention of obstruction- Primary Tobacco use disorder documented in this encounter
--- OUTSIDE RECORDS SUMMARY | 2024-08-18 10:33 | XMS_ITS | Encounter Summary ---
Author Organization [facility] Address [address] [place] [address] Care Team Providers Care Independent Contractor Name Role Phone Unavailable Primary Care Provider Unavailabl e Encounter Details Date Type Department Care Team (Late st Contact Info) Description 11/15/2006 Outpatient Historical [facility] [address] [place] [address] Cj Gold MD NO ADDRESS ON FILE Chelita Eduardo MD [address] [place] [phone] Abdominal Pain, Unspecified Site (Primary Dx) Social History Tobacco Use Types Packs/Day Years Used Date Smoking Tobacco: Never Assessed Comments Unknown Sex and Gender Information Value Date Recorded Sex Assigned at Not on file Legal Sex Female 2:59 AM CHRONIC CONDITION NURSE Gender Identity Not on file Sexual Orientation Not on file documented as of this encounter Plan of Treatment Not on file documented as of this encounter Visit Diagnoses Diagnosis Abdominal pain, unspecified site- Primary documented in this encounter
--- OUTSIDE RECORDS SUMMARY | 2024-08-18 10:33 | XMS_ITS | Encounter Summary ---
Author Organization [facility] Address [address] [place] [address] Care Team Providers Care Counterperson Name Role Phone Unavailable Primary Care Provider Unavailabl e Encounter Details Date Type Department Care Team (Latest Contact Info) Description 05/13/[address] [place] [phone] David Medina MD NO ADDRESS ON FILE SUPERVIS OTHER NORMAL PREG (Primary Dx) Social History Tobacco Use Types Packs/Day Years Used Date Smoking Tobacco: Never Assessed Comments Unknown Sex and Gender Information Value Date Recorded Sex Assigned at Not on file Legal Sex Female 2:59 AM HEALTH AND FITNESS PROFESSOR Gender Identity Not on file Sexual Orientation Not on file documented as of this encounter Plan of Treatment Not on file documented as of this encounter Visit Diagnoses Diagnosis Supervision of other normal - Primary documented in this encounter
--- OUTSIDE RECORDS SUMMARY | 2024-08-18 10:33 | XMS_ITS | Encounter Summary ---
Author Organization [facility] Address [address] [place] [address] Care Team Providers Care Buffing Wheel Presser Name Role Phone Unavailable Primary Care Provider Unavailabl e Encounter Details Date Type Department Care Team (Late st Contact Info) Description 10/23/2006 Outpatient Historical [facility] [address] [place] [address] Chelita Eduardo MD [address] [place] [phone] Abdominal Pain, Unspecified Site (Primary Dx) Social History Tobacco Use Types Packs/Day Years Used Date Smoking Tobacco: Never Assessed Comments Unknown Sex and Gender Information Value Date Recorded Sex Assigned at Not on file Legal Sex Female 2:59 AM MINERAL ENGINEER Gender Identity Not on file Sexual Orientation Not on file documented as of this encounter Plan of Treatment Not on file documented as of this encounter Visit Diagnoses Diagnosis Abdominal pain, unspecified site- Primary documented in this encounter
--- OUTSIDE RECORDS SUMMARY | 2024-08-18 10:33 | XMS_ITS | Encounter Summary ---
Author Organization [facility] Address [address] [place] [address] Care Team Providers Care Yarn Sizer Name Role Phone Unavailable Primary Care Provider Unavailabl e Encounter Details Date Type Department Care Team (Latest Contact Info) Description 04/22/[address] [place] [phone] David Medina MD NO ADDRESS ON FILE SUPERVIS OTHER NORMAL PREG (Primary Dx) Social History Tobacco Use Types Packs/Day Years Used Date Smoking Tobacco: Never Assessed Comments Unknown Sex and Gender Information Value Date Recorded Sex Assigned at Not on file Legal Sex Female 2:59 AM TRAFFIC AND TRANSPORT PLANNER Gender Identity Not on file Sexual Orientation Not on file documented as of this encounter Plan of Treatment Not on file documented as of this encounter Visit Diagnoses Diagnosis Supervision of other normal - Primary documented in this encounter
--- OUTSIDE RECORDS SUMMARY | 2024-08-18 10:33 | XMS_ITS | Encounter Summary ---
Author Organization [facility] Address [address] [place] [address] Care Team Providers Care Regulatory Specialist Name Role Phone Unavailable Primary Care Provider Unavailabl e Encounter Details Date Type Department Care Team (Late st Contact Info) Description 10/16/2006 Outpatient Historical [facility] Medicine [address] [place] [address] Chelita Eduardo MD [address] [place] [phone] Abdominal Pain, Unspecified Site (Primary Dx); Anxiety State, Unspecified Social History Tobacco Use Types Packs/Day Years Used Date Smoking Tobacco: Never Assessed Comments Unknown Sex and Gender Information Value Date Recorded Sex Assigned at Not on file Legal Sex Female 2:59 AM PRODUCT TESTER FIBERGLASS Gender Identity Not on file Sexual Orientation Not on file documented as of this encounter Plan of Treatment Not on file documented as of this encounter Visit Diagnoses Diagnosis Abdominal pain, unspecified site- Primary Anxiety state, unspecified documented in this encounter
--- OUTSIDE RECORDS SUMMARY | 2024-08-18 10:33 | XMS_ITS | Encounter Summary ---
Author Organization [facility] Address [address] [place] [address] Care Team Providers Care Traffic Control Operator Name Role Phone Unavailable Primary Care Provider Unavailabl e Encounter Details Date Type Department Care Team (Latest Contact Info) Description 08/26/2009 Outpatient Historical [facility] [address] [place] [address] Amanda Diaz MD [address] [place] [phone] Abdominal Pain, Unspecified Site (Primary Dx) Social History Tobacco Use Types Packs/Day Years Used Date Smoking Tobacco: Every Day Alcohol Use Standard Drinks/Week Comments Yes 0 (1 standard drink = 0.6 oz pur e alcohol) sometimes Comments No Sex and Gender Information Value Date Recorded Sex Assigned at Not on file Legal Sex Female 2:59 AM COMPLEX CARE NURSE PRACTITIONER Gender Identity Not on file Sexual Orientation Not on file documented as of this encounter Plan of Treatment Not on file documented as of this encounter Visit Diagnoses Diagnosis Abdominal pain, unspecified site- Primary documented in this encounter
--- OUTSIDE RECORDS SUMMARY | 2024-08-18 10:33 | XMS_ITS | Encounter Summary ---
Author Organization [facility] Address [address] [place] [address] Care Team Providers Care District Captain Name Role Phone Unavailable Primary Care Provider Unavailabl e Encounter Details Date Type Department Care Team (Latest Contact Info) Description 09/06/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
--- OUTSIDE RECORDS SUMMARY | 2024-08-18 10:33 | XMS_ITS | Encounter Summary ---
Author Organization [facility] Address [address] [place] [address] Care Team Providers Care Babcock Tester Name Role Phone Unavailable Primary Care Provider Unavailabl e Encounter Details Date Type Department Care Team (Latest Contact Info) Description 06/03/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
--- OUTSIDE RECORDS SUMMARY | 2024-08-18 10:33 | XMS_ITS | Encounter Summary ---
Author Organization [facility] Address [address] [place] [address] Care Team Providers Care Ditcher Name Role Phone Unavailable Primary Care Provider Unavailabl e Encounter Details Date Type Department Care Team (Latest Contact Info) Description 09/13/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
--- OUTSIDE RECORDS SUMMARY | 2024-08-18 10:33 | XMS_ITS | Encounter Summary ---
Author Organization [facility] Address [address] [place] [address] Care Team Providers Care Shoe Folder Name Role Phone Unavailable Primary Care Provider Unavailabl e Encounter Details Date Type Department Care Team (Latest Contact Info) Description 11/22/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
--- OUTSIDE RECORDS SUMMARY | 2024-08-18 10:33 | XMS_ITS | Encounter Summary ---
Author Organization [facility] Address [address] [place] [address] Care Team Providers Care Associate Genetics Professor Name Role Phone Unavailable Primary Care Provider Unavailabl e Encounter Details Date Type Department Care Team (Latest Contact Info) Description 09/26/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
--- OUTSIDE RECORDS SUMMARY | 2024-08-18 10:33 | XMS_ITS | Encounter Summary ---
Author Organization [facility] Address [address] [place] [address] Care Team Providers Care Docket Clerk Name Role Phone Unavailable Primary Care Provider Unavailabl e Encounter Details Date Type Department Care Team (Late st Contact Info) Description 10/07/2005 Outpatient Historical [facility] [address] 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
--- OUTSIDE RECORDS SUMMARY | 2024-08-18 10:33 | XMS_ITS | Encounter Summary ---
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
--- OUTSIDE RECORDS SUMMARY | 2024-08-18 10:33 | XMS_ITS | Encounter Summary ---
Author Organization [facility] Address [address] [place] [address] Care Team Providers Care Agricultural Labor Camp Manager Name Role Phone Unavailable Primary Care Provider Unavailabl e Encounter Details Date Type Department Care Team (Late st Contact Info) Description 12/01/2004 Outpatient Historical 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
--- OUTSIDE RECORDS SUMMARY | 2024-08-18 10:33 | XMS_ITS | Encounter Summary ---
Author Organization [facility] Address [address] [place] [address] Care Team Providers Care Clinical Statistical Programmer Name Role Phone Unavailable Primary Care Provider Unavailabl e Encounter Details Date Type Department Care Team (Late st Contact Info) Description 06/27/2009 Outpatient Historical [facility] [address] 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
--- OUTSIDE RECORDS SUMMARY | 2024-08-18 10:33 | XMS_ITS | Encounter Summary ---
Author Organization [facility] Address [address] [place] [address] Care Team Providers Care Maintenance Service Technician Name Role Phone Unavailable Primary Care Provider Unavailabl e Encounter Details Date Type Department Care Team (Latest Contact Info) Description 01/15/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
--- OUTSIDE RECORDS SUMMARY | 2024-08-18 10:33 | XMS_ITS | Encounter Summary ---
Author Organization [facility] Address [address] [place] [address] Care Team Providers Care Tank Cleaning Supervisor Name Role Phone Unavailable Primary Care Provider Unavailabl e Encounter Details Date Type Department Care Team (Latest Contact Info) Description 11/25/[address] [facility] Internal Medicine and Pediatrics-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
--- NOTE | 2024-08-18 11:04 | ECG_ITS ---
[facility] C[facility] Test Date: 2024-08-18 Pat Name: Anita Rich Department: Room: Gender: Female Shaper Set Up Operator: : 1975 Requested By: Renzo Rogers Order Number: [id number] Mallory MD: Mary Jane Foster M.D. Measurements Intervals [place] Rate: 104 P: 79 MN: 166 QRS: 3 QRSD: 86 T: 64 QT: 348 QTc: 459 Interpretive Statements SINUS TACHYCARDIA POSSIBLE RIGHT ATRIAL ENLARGEMENT [0.25mV P-WAVE] ABNORMAL RHYTHM ECG Compared to ECG 07/02/2021 19:10:31 No significant changes Electronically Signed On 08-19-2024 09:54:38 CDT by Mary Jane Foster M.D. [email or web address]
[2024-08-18 11:54] LABS: Hematocrit 46.3 % (36-47); Hemoglobin 15.60 g/dL (11.27-16.99); Mean Corpuscular HGB Conc 33.7 g/dL (30-55); Mean Corpuscular Hemoglobin 31.4 pg (27-33); Mean Corpuscular Volume 93.2 fl (85-98); Nucleated Red Blood Cells % 0 %; Platelet Count 238 10^3/cmm (157-399); Red Blood Count 4.97 10^6/uL (3.85-5.65); White Blood Count 8.63 10^3/uL (3.29-11.43)
[2024-08-18] MEDS: methylPREDNISolone sod succ 125 mg/2 mL INJ IV (11:55)
--- NOTE | 2024-08-18 11:55 | PC.NURSE ---
attempted ultrasound IVs at approx 1130 and unable to start IV. adrianne verbalized order for IM injections.
[2024-08-18 12:23] LABS: Alanine Aminotransferase 35 U/L (0-33); Albumin Level 3.9 g/dL (3.5-5.2); Alkaline Phosphatase 106 U/L (35-105); Aspartate Amino Transferase 30 U/L (0-32); Blood Urea Nitrogen 6 mg/dL (6-20); Calcium 9.4 mg/dL (8.5-10.5); Carbon Dioxide 25 mmol/L (22-29); Chloride 100 mmol/L (98-107); Creatinine Clr Calc Pharmacy 143.0571; Globulin 3.8 g/dL (1.3-4.6); Glucose 114 mg/dL (65-115); NT Pro B Type Natriuretic Pept 294 pg/mL (0-125); Osmolality Calculated 286 mOsm/kg (285-295); Sodium 139 mmol/L (136-145); Total Protein 7.7 g/dL (6.6-8.7)
[2024-08-18 12:28] LABS: Anion Gap 17.4 (5-19); Potassium 3.4 mmol/L (3.5-5.1)
[2024-08-18 12:36] VITALS: BP 149/96; PULSE 108; O2SAT 99
[2024-08-18 12:38] VITALS: O2SAT 95
[2024-08-18 12:42] LABS: Respiratory Syncytial Virus Ce NEGATIVE (Negative); SARS-CoV-2 PCR NEGATIVE (Negative)
[2024-08-18] MEDS: albuterol 8 gm MDI 2 PUFF INHALATION (12:43)
[2024-08-18 12:44] VITALS: PULSE 98; RESP 18; O2SAT 92
[2024-08-18 12:53] VITALS: BP 149/96; PULSE 92; O2SAT 91
== END 2024-08-18 12:55 | disposition home or self-care (01) ==
PROVIDERS: Emergency Provider Emergency Medicine; PCP Family Medicine Adult Medicine
DX: J42 Unspecified chronic bronchitis (principal); Z11.52 Encounter for screening for COVID-19; Z72.0 Tobacco use; I10 Essential (primary) hypertension
CPT/HCPCS: 36415; 71045; 80053; 83880; 85025; 87637; 93005; 94640; 96374; 96375; 99285; J1885; J2919; J3535; J7613; J9999

== ENCOUNTER 2024-11-26 08:08 | Emergency (ER) | payer SELFPAY ==
[2024-11-26 08:13] VITALS: BP 154/109; PULSE 100; RESP 16; TEMP 36.7; O2SAT 99; BMI 47.2
--- OUTSIDE RECORDS SUMMARY | 2024-11-26 08:21 | XMS_ITS | Clinical Summary ---
Author Organization [facility] Address [address] Borges: Epic Prelude ADT [place] [address] Care Team Providers Care Lepidopterist Name Role Phone Unavailable Primary Care Provider [...] on file Legal Sex Female 10:47 AM ASSEMBLY HAND Gender Identity Not on file Sexual Orientation Not on file Last Filed Vital Signs Vital Sign Reading Time Taken Comments Blood Pressure 157/106 03/10/2017 2:37 PM ASSEMBLY HAND Pulse 75 03/10/2017 2:38 PM ASSEMBLY HAND Temperature 36.6 C (97.9 F) 03/10/2017 12:38 PM ASSEMBLY HAND Respiratory Rate 17 03/10/2017 12:38 PM ASSEMBLY HAND Oxygen Saturation - - Inhaled Oxygen Concentration - - Weight 93 kg (205 lb) 03/10/2017 12:38 PM ASSEMBLY HAND Height 162.6 cm (5' 4 ) 03/10/2017 12:38 PM ASSEMBLY HAND Body Mass Index 35.19 03/10/2017 12:38 PM ASSEMBLY HAND Plan of Treatment Health Maintenance Due Date [...] Associated Diagnosis Comments CERV/VAG CYTOPATH, THIN PREP WEARING APPAREL SHAKER AND HPV Routine 06/25/2015 11:26 AM CDT from Last 3 Months or Most Recently Relevant to Health Maintenance Results * CERV/VAG CYTOPATH, THIN PREP WEARING APPAREL SHAKER AND HPV (06/25/2015 11:26 AM CDT) CASE REPORT Gynecologic Cytology Report Case: [id number] Authorizing Provider: Veda Stewart NP Collected: 06/25/2015 1126 Ordering Location: [facility] Received: 06/29/2015 1127 First Screen: Meryl Elizalde Specimen: LB PAP IM AND HPV PROT, Endocervical 07/06/2015 3:07 PM CDT [facility] Extruder Operator Vertical Specimen Adequacy Satisfactory for evaluation, endocervical/anglin sformation zone component absent 07/06/2015 3:07 PM CDT [facility] Extruder Operator Vertical General Categorization Negative For Intraepithelial Lesion Or Malignancy 07/06/2015 3:07 PM CDT [facility] Interpretation Negative For Intraepithelial Lesion Or Malignancy 07/06/2015 3:07 PM CDT [facility] Extruder Operator Vertical Previous Pap Date 07/02/09 07/06/2015 3:07 PM CDT [facility] Extruder Operator Vertical Prev Pap Result Comment WNL 07/06/2015 3:07 PM CDT [facility] GynLMP 05/27/15 07/06/2015 3:07 PM CDT [facility] Extruder Operator Vertical Educational Note 07/06/2015 3:07 PM CDT [facility] Endocervical (Endocervical) 06/25/2015 11:26 AM CDT 06/29/2015 11:27 AM CDT us Veda Stewart NP PATHOLOGY/CYTOLOGY ORDERABLES Fi nal Result [facility] CLIA# [id number] [address] [place] [address] [facility] CLIA # [id number] [address] [id number] [place] [address] from Last 3 Months or Most Recently Relevant to Health Maintenance
--- OUTSIDE RECORDS SUMMARY | 2024-11-26 08:21 | XMS_ITS | Patient Health Record ---
Author Organization [facility] Address [address] [place] [address] Care Team Providers Care Deputy Administrator Name Role Phone Jenniffer Calvin Primary Care Provider Allergies No Known Allergies Reason For Referral [...] W/U Status Risk Notes Problem Essential hypertension (43229328) Essential hypertension (I10) Active confirmed Problem COPD - Chronic obstructive pulmonary disease (57616984) Chronic obstructive pulmonary disease, unspecified COPD type (J44.9) Active confirmed Plan Of Treatment No Information Insurance Providers Payer Name Payer Address Payer Phone Subscriber Number Group Number Insured Name Patient Relationship to Insured Coverage Start Date Coverage End Date [employer] [address] [address] [place] [address] [id number] Anita Rich Self - patient is the insured Medications Administered Medication Instructions Date of Administration Dosage Notes Albuterol 09/21/2020 Medical (General) History Medical History History ICD Code Essential hypertension; Manual cuff 141/ 96, her cuff 136/93 on 12/24/20 COPD Surgical History Surgery Date(Month/Year) appendectomy 2005 cholecystectomy 2006 Hospitalization History Reason Date(Month/Year) acute kidney failure 2009 see surgeries above
--- NOTE | 2024-11-26 08:41 | ED_ITS ---
HPI - Extremity Problem General: Chief complaint: Extremity Problem,Nontraumatic Stated complaint: radiating pain from hip to calf Time Seen by Provider: 11/26/24 08:17 History of Present Illness: 41-year-old female presents emergency ro om complaining of right leg pain. She has pain radiating from the buttock down to the proximal posterior calf. She denies any trauma or injury. No previous surgeries to her back. No urinary retention no fecal incontinence. No saddle paresthesia she has a problems with her back in the past. She states this is a little more intense than she has had previously Associated symptoms: Deny chest pain, fever(s) or rash Related Data Home Medications ?Medication ?Instructions ?Recorded ?Confirmed ibuprofen 200 mg tablet (Advil) 800 mg PO Q6H PRN Feve r Or Pain 08/18/24 11/26/24 Previous Rx's ?Medication ?Instructions ?Recorded diclofenac sodium 75 mg 75 mg PO Q12H PRN pain #20 t abs 11/26/24 tablet,delayed release prednisone 20 mg tablet 20 mg PO TID #15 tabs tizanidine 4 mg tablet 4 mg PO Q6H PRN muscle spast icity 11/26/24 #20 tabs Allergies Allergy/AdvReac Type Severity Reaction Status Date / Time No Known Allergies Allergy Verified 03/17/22 11:14 Review of Systems Const: Denies: fever(s) or chills Card: Denies: chest pain Resp: Denies: dyspnea GI: Denies: abdominal pain : Denies: dysuria, urinary frequency or urinary urgency Musc: Reports: extremity pain; Denies: neck pain or back pain Skin/Breast: Denies: rash PFSH ED PFSH: Medical History 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 Hypokalemia Acute renal failure Anxiety about health Smoker Participant in health and wellness plan Sciatic leg pain Chronic hip pain, bilateral Morbid obesity with BMI of 40.0-44.9, adult Hypertension Osteoarthritis of both sacroiliac joints Asthma Knee pain FHx: cholecystectomy Surgical History H/O tubal ligation History of appendectomy Family History Mother Renal cell cancer Pancreatic cancer Asthma Social History Smoking and tobacco/nicotine status: heavy tobacco/nicotine user Quit status (tobacco/nicotine): has tried quititng Alcohol intake: never Substance/Drug Use: never Adopted: No Lives independently: Yes Household members: spouse Marital status: Number of children: 2 Number of grandchildren: 1 Highest education level completed: Some College, No Degree Female Reproductive History: Spontaneous abortions: No Physical Exam Const: GENERAL APPEARANCE: cooperative ORIENTATION/CONSCIOUSNESS: Yes awake, Yes oriented to person, Yes oriented to place and Yes oriented to time HENMT: COMMON NORMALS: normocephalic, atraumatic and hearing grossly normal bilaterally HEAD & SCALP: normocephalic and atraumatic Resp: COMMON NORMALS: normal respiratory effort, No retractions, No use of accessory muscles and clear to auscultation bilaterally AUSCULTATION: clear to auscultation bilaterally Cardio: COMMON NORMALS: regular rate, regular rhythm and No murmurs present (Cardio) RATE: regular rate RHYTHM: regular rhythm GI: COMMON NORMALS: Soft to palpation and No hepatosplenomegaly present AUSCULTATION: Yes normoactive bowel sounds PALPATION: Yes Soft to palpation, No Tenderness to palpation present (GI), No Guarding due to palpation present (GI) and Yes No hepatosplenomegaly present Extremity: COMMON NORMALS: normal to inspection, capillary refill normal, no clubbing, cyanosis or edema, no calf tenderness and no pedal edema OTHER: No swelling of the lower extremities negative Homans Neuro: SENSORIUM/ORIENTATION: Yes oriented to person, Yes oriented to place and Yes oriented to time OTHER: Deep tendon reflexes in the lower extremity +2/4 patellar tendon neurovascularly intact bilaterally in the lower extremities Skin: COMMON NORMALS: no rashes or lesions noted GENERAL SKIN EXAM: no rashes or lesions noted Course Vital Signs: Vital signs: Vital Signs Temperature 98.1 F 11/26/24 08:13 Pulse Rate 84 11/26/24 09:50 Respiratory Rate 16 11/26/24 08:13 Blood Pressure 164/106 11/26/24 09:50 Pulse Oximetry 96 11/26/24 09:50 Oxygen Delivery Me thod Room Air 11/26/24 08:13 MDM - Extremity (Nontraumatic) Medical Decision Making Patient seen initially and evaluated. Differential diagnosis includes lumbar nerve impingement peripheral neuropathy musculoskeletal lower extremity pain DVT cauda equina peripheral vascular disease Based on her history and presentation, her pain is more suggestive of lumbar nerve impingement. She does not have any red flag symptoms for cauda equina no swelling in her lower extremities no sign of DVT. She has good pulses peripheral vascular disease very unlikely. Pain is not musculoskeletal in nature she can move the lower extremity without specific muscle group tenderness or pain. There is no signs of direct injury to the leg. She did get improvement with medications given will discharge home with steroid taper anti- inflammatory muscle relaxers have her follow-up with her primary care if not improving she may need referral to PT or advanced imaging as appropriate. Medical Records I reviewed the patient's medical records. No radiology studies performed this visit Discharge Plan Discharge Patient Disposition: Home Clinical Impression: Sciatic leg pain Condition: Stable Prescriptions: New tizanidine 4 mg tablet 4 mg PO Q6H PRN (Reason: muscle spasticity) Qty: 20 0RF Rx Instructions: do not exceed 3 doses per 24 hrs prednisone 20 mg tablet 20 mg PO TID Qty: 15 0RF Rx Instructions: 1 p.o. 3 times daily x3 days, 1 p.o. twice daily x2 days, 1 p.o. daily x2 days diclofenac sodium 75 mg tablet,delayed release (DR/EC) 75 mg PO Q12H PRN (Reason: pain) Qty: 20 0RF No Action ibuprofen [Advil] 200 mg Tablet 800 mg PO Q6H PRN (Reason: Fever Or Pain) Discharge Orders: Discharge ED (Routine); Ordered 11/26/24 Ordered By: Chad Lujan Discharge Diet: Usual diet Discharge Activity: Increase activity as tolerated Patient Instructions: Lumbar Radiculopathy (ED), Lower Back Exercises (ED), Opioid Safety, Pain Management, Patient Portal & [place] Instructions Activity Restrictions/Additional Instructions: Thank you for choosing [facility] for your healthcare needs today. It is very important that you follow up as instructed or that you return to the Emergency Department should you have concerns or if your condition changes or worsens in any way. Emergency department visits are focused on emergent conditions, in some cases you may require further evaluation on an outpatient basis. You are seen in the emergency room with complaints of right leg radicular pain improved with medications given. Recommend you follow-up with your primary care doctor if pain persists you may need advanced imaging such as an MRI if it is felt appropriate at the time of reevaluation. Will discharge home with a steroid taper to begin tonight also gave you muscle relaxers and anti- inflammatories. Avoid heavy lifting stooping and bending here also given (Please note that included in your discharge packet is information concerning opioid safety and pain management. This information is given to all patients were discharged from the ER regardless of their discharge diagnosis or the medicines they usually take or are prescribed.) Print Language: Thai Coding Level of Care Code ED Credit Assessment Analyst for Jeremy Cherry
[2024-11-26] MEDS: methylPREDNISolone sod succ 125 mg/2 mL INJ IM (09:07)
[2024-11-26] MEDS: orphenadrine 30 mg/mL Inj 2 mL 60 MG IM (09:07)
[2024-11-26 09:50] VITALS: BP 164/106; PULSE 84; O2SAT 96
== END 2024-11-26 09:50 | disposition home or self-care (01) ==
PROVIDERS: Emergency Provider Family Medicine
DX: M54.31 Sciatica, right side (principal); Z72.0 Tobacco use; I10 Essential (primary) hypertension
CPT/HCPCS: 96372; 99284; J1885; J2360; J2919